=== PATIENT | female | born 1950 | race Caucasian/White ===

== ENCOUNTER 2017-04-28 13:06 | Inpatient (IN) | payer BC, OTHER ==
[~2017-04-28] VITALS: Ht 168.9 cm; Wt 90.3 kg
[2017-04-28 13:06] VITALS: BP 145/82; PULSE 80; RESP 18; TEMP 97; O2SAT 96
[~2017-04-28 13:06] MED LIST: CELE200C PO; DULO60CA41 PO; HYDR-3610 PO; LEVO88TA2 PO; METO25TA6 PO; PANT40TA4 PO; SARAFEM PO
--- NOTE | 2017-04-28 13:10 | NUR ---
Patient triaged and placed in waiting room. VSS and patient appears in no acute distress at this time. Accompanied by SPOUSE, awaiting available bed, and MD notified of need for MSE. SEEN IN TRIAGE ROOM BY ORLANDO GRESHAM.
[2017-04-28] MEDS ORDERED: SODIUM BICARBONATE 4% (NEUT) 5 ML VIAL INJ ONE (13:55)
[2017-04-28] MEDS ORDERED: KETOROLAC TROMETHAMINE 15 MG VIAL IVP ONE (13:55)
[2017-04-28] MEDS ORDERED: PIPERACILLIN/TAZOBACTAM 3.375 GM/VIAL (ZOSYN) IV ONE (13:55)
[2017-04-28] MEDS ORDERED: NS 1000 ML BAG IV ONE (13:55)
[2017-04-28] MEDS ORDERED: metroNIDAZOLE 500 mg/NS 100 mL IVPB IV ONE (13:55)
[2017-04-28] MEDS ORDERED: HYDROCORTISONE SOD SUCC 250 MG/2 ML IVP ONE (13:55)
[2017-04-28] MEDS ORDERED: LR 1,000 ML IV.SOLN IV ONE (13:55)
[2017-04-28] MEDS ORDERED: LIDOCAINE 2%, 20 ML MDV INJ ONE (13:55)
[2017-04-28] MEDS ORDERED: MIDAZOLAM HCL 5 MG/5 ML VIAL IVP ONE (13:55)
[2017-04-28] MEDS ORDERED: ePHEDrine sulfate 50 MG/ML VIAL IV ONE (13:55)
[2017-04-28] MEDS ORDERED: fentaNYL CITRATE 250 MCG/5 ML AMP IV ONE (13:55)
[2017-04-28] MEDS ORDERED: PROPOFOL 200MG/ 20ML VIAL (DIPRIVAN) IV ONE (13:55)
[2017-04-28] MEDS ORDERED: SEVOFLURANE 15 MIN GAS INH ONE (13:55)
[2017-04-28] MEDS ORDERED: NS IRRIG SOLN 1000 ML IR ONE (13:55)
[2017-04-28] MEDS ORDERED: DEXAMETHASONE SOD PHOSPHATE 4 MG/ML VIAL IVP ONE (13:55)
[2017-04-28 14:07] LABS: BASOPHILS # (AUTO) 0.1 K/uL (0.0-0.2); BASOPHILS % (AUTO) 0.4 % (0.0-2.0); LYMPHOCYTES # (AUTO) 1.3 K/uL (1.0-5.5); LYMPHOCYTES % (AUTO) 8.5 % (20.5-51.5); WHITE BLOOD COUNT (AUTO) 15.4 K/uL (4.8-10.8)
[2017-04-28 14:13] LABS: CALCIUM 10.3 mg/dL (8.4-11.0); CREATININE 1.14 mg/dL (0.55-1.30); EOSINOPHILS % (AUTO) 0.1 % (0.0-4.0); HEMATOCRIT 41.3 % (36-48); HEMOGLOBIN 13.5 g/dL (12.0-16.0); MEAN CORPUSCULAR HEMOGLOBIN 31 pg (27-31); MEAN CORPUSCULAR HGB CONC 33 % (32-36); MEAN CORPUSCULAR VOLUME 94 fL (79.0-98.0); MONOCYTES % (AUTO) 6.4 % (1.7-9.3); NEUTROPHILS % (AUTO) 84.6 % (40.0-70.0); PLATELET COUNT (AUTO) 309 K/uL (130-430); POTASSIUM 4.7 mmol/L (3.5-5.1); RED BLOOD CELL COUNT(AUTO) 4.38 MIL/uL (4.2-6.2); RED CELL DISTRIBUTION WIDTH 12.6 % (9.0-15.0)
[2017-04-28 14:18] LABS: ALBUMIN 4.6 g/dL (3.4-4.8); TOTAL BILIRUBIN 0.4 mg/dL (0.0-1.0)
--- NOTE | 2017-04-28 14:40 | NUR ---
BROUGHT BACK TO BED #8 AND REPORT GIVEN TO AUSTEN
--- NOTE | 2017-04-28 14:45 | NUR ---
Pt brought by , A&Ox4, pt c/o N/V and severe abdominal pain, ambulatory, skin pink and warm, cap refill <3, respirations even and unlabored.
--- NOTE | 2017-04-28 14:57 | NUR ---
Note undone in EDM - 04/28/17 at 1527 by BERNADINE Patient given written and verbal discharge instructions and verbalizes understanding. ER discussed with patient the results and treatment provided. Patient in stable condition. ID arm band removed. Rx of FLAVIA WIGGINS given. Patient educated on pain management and to follow up with PMD. Pain Scale 0/10. Opportunity for questions provided and answered.
[2017-04-28] MEDS ORDERED: HYDROmorphone 1 MG INJ. 1 MG/ML AMPUL IVP ONE (15:30)
--- NOTE | 2017-04-28 15:30 | NUR ---
Dr Pereira at bedside examining patient
--- NOTE | 2017-04-28 15:50 | NUR ---
Admiting orders taken from Dr. Gomez. Pt will be admited to med-surg.
--- NOTE | 2017-04-28 16:00 | NUR ---
Spoke with Dr. Phelps regarding consultation, states that he will see the patient on the floor.
--- NOTE | 2017-04-28 16:04 | NUR ---
Patient states that she does not know her medications at this time and have her bring in the bottles of medication when he returns.
[2017-04-28 16:05] LABS: BILIRUBIN,URINE NEGATIVE (NEGATIVE); CLARITY/URINE SL HAZY (CLEAR); COLOR,URINE YELLOW (YELLOW); GLUCOSE,URINE NEGATIVE (NEGATIVE); KETONES,URINE TRACE (NEGATIVE); LEUKOCYTE ESTERASE ,URINE NEGATIVE (NEGATIVE); NITRITE, URINE NEGATIVE (NEGATIVE); PROTEIN URINE TRACE (NEGATIVE); UROBILINOGEN,URINE 0.2 (0.2-1.0)
[2017-04-28 16:06] LABS: BLOOD, URINE TRACE (NEGATIVE)
[2017-04-28 16:19] LABS: BACTERIA,URINE FEW /HPF (None Seen); WBC,URINE 0-3 /HPF (0-3)
[2017-04-28 16:20] LABS: FINE GRANULAR CASTS,URINE 0-10 /LPF (None Seen); HYALINE CASTS, URINE 0-10 /LPF (None Seen)
[2017-04-28 16:21] LABS: CALCIUM OXALATE CRYSTALS,UR 0-10 /HPF (None Seen)
[2017-04-28 16:22] LABS: MUCUS,URINE 2+ /LPF (None Seen)
[2017-04-28] MEDS ORDERED: ARIP2TAB9 PO (16:39)
[2017-04-28] MEDS ORDERED: FLUO10CA65 PO (16:39)
--- NOTE | 2017-04-28 16:40 | NUR ---
Medication reconciliation completed with information provided by patient . Any prior medication reconciliation on file was reviewed and corrected.
--- NOTE | 2017-04-28 16:45 | NUR ---
ADMISSION NOTE Received patient from ER via gurney. Patient admitted with diagnosis of small bowel obstruction. Patient is awake, alert, oriented X4. Patient oriented to hospital room, call light, toileting, pain management and safety-teach back done. Personal belongings checked and Belongings List documented. Call light within reach.
[2017-04-28 16:50] VITALS: PULSE 115
[2017-04-28 16:59] VITALS: BP 141/67; PULSE 83; RESP 16; TEMP 98.7; O2SAT 95
--- NOTE | 2017-04-28 17:00 | NUR ---
Patient will be admitted to care of Dr Stuart . Admitted to Tele unit. Will go to room 133A . Belongings list completed. Summary report printed. Report will be given at bedside.
[2017-04-28 17:16] VITALS: BP 132/81; PULSE 78; RESP 19; TEMP 97; O2SAT 99
[2017-04-28] MEDS: MORPHINE 4 MG/ML INJ. SYRINGE IVP PRN ×2 (18:22→22:33)
[2017-04-28] MEDS: ONDANSETRON HCL 4 MG/2 ML VIAL IVP PRN ×2 (18:22→22:38)
[2017-04-28] MEDS: D5NS 1,000 ML IV SCH (18:35)
--- NOTE | 2017-04-28 19:26 | NUR ---
ROUNDS PT SITTING UP IN BED IN NO ACUTE DISTRESS. DENIES ANY PAIN AT THIS TIME. IVF INFUSING WELL, NO S/S OF INFILTRATION NOTED. CALL LIGHT WITHIN REACH. PT ENCOURAGED TO USE CALL LIGHT FOR ASSISTANCE. VERBALIZED UNDERSTANDING. WILL ENDORSE TO NOC NURSE.
--- NOTE | 2017-04-28 19:48 | NUR ---
CLOSING NOTE PT SITTING UP IN BED IN NO ACUTE DISTRESS. STATES PAIN IS STARTING TO COME BACK, WILL ENDORSE TO NOC NURSE. DISCUSSED WITH PT PLAN FOR ESOPHAGRAM TOMORROW, PT VERBALIZED UNDERSTANDING. CALL LIGHT WITHIN REACH. PT ENCOURAGED TO USE CALL LIGHT FOR ASSISTANCE.
--- NOTE | 2017-04-28 19:50 | NUR ---
Opening note Report was endorsed by day nurse at bedside. Patient is awake and laying in bed no signs of distress breathing is equal and non labored. educated specialty finishing utility person light and call light is with patient. Will continue to monitor.
[2017-04-28] MEDS: METOPROLOL TARTRATE 25 MG TABLET PO SCH (20:48)
[2017-04-28 20:54] VITALS: BP 180/102; PULSE 67; RESP 14; TEMP 97.6; O2SAT 95
[2017-04-28] MEDS: MORPHINE 2 MG/ML INJ. SYRINGE IVP PRN (21:00)
--- NOTE | 2017-04-28 21:03 | NUR ---
PAIN MEDICATION Patient is complains of pain 6/10 medicated as order please see EMAR. Patient educated bone drier light for assistance.call oight is on patient left side. Patient has safety precautions in place. Patient shows no signs of distress breathing is equal and non labored. Will continue to monitor.
[2017-04-28 22:30] VITALS: BP 160/105
--- NOTE | 2017-04-28 22:39 | NUR ---
Pain medication/ Nausea medication Patient is complains of pain 9/10 in her abdomen. Patient is also complains of nausea medicated as order please se EMAR. Patient is awake and laying in bed no signs of distress breathing is equal and non labored. educated front desk lead light for assistance and is with patient Will continue to monitor.
--- NOTE | 2017-04-28 23:50 | NUR ---
RN rounding note Patient is awake and laying in bed. Patient shows no signs of distress breathing is equal and non labored. Educated business analyst sales operations light for assistance call light is with her. Will continue to monitor.
[2017-04-29] VITALS (7 sets, daily range): BP systolic 125–160; BP diastolic 67–100; PULSE 87–121; RESP 16–20; TEMP 97–98.5; O2SAT 90–98
--- NOTE | 2017-04-29 01:00 | NUR ---
RN rounding Patient is laying in bed with no signs of distress visible chest rise and fall, breathing is equal and non labored. Patient has call light with her, safety precautions in place. Will continue to monitor.
[2017-04-29] MEDS: MORPHINE 4 MG/ML INJ. SYRINGE IVP PRN ×2 (02:56→08:53)
--- NOTE | 2017-04-29 02:58 | NUR ---
IV site/pain medication Patient IV site no longer patent removed Left FA 20G iv catheter intact applied gauze and tape to site. New IV started on right wrist 22 G. Patient is complaing of pain 8/10 medicated as order. Patient educated transformation lead light for assistance call light is with patient. Patient shows no signs of distress breathing is equal and non labored.Will continue to monitor.
[2017-04-29] MEDS: D5NS 1,000 ML IV SCH ×2 (05:25→20:47)
[2017-04-29] MEDS: ONDANSETRON HCL 4 MG/2 ML VIAL IVP PRN ×3 (05:25→20:46)
[2017-04-29] MEDS: MORPHINE 2 MG/ML INJ. SYRINGE IVP PRN ×2 (05:26→11:47)
--- NOTE | 2017-04-29 05:33 | NUR ---
Medication Patient complains of pain 6/10 patient also complains of nausea medicated as order please see EMAR. Patient IV fluid bag changed. Patient educated section plotter operator light for assistance. Patient has call light and nausea bag on patient right side. Patient has safety precautions in place. Will continue to monitor.
--- NOTE | 2017-04-29 07:52 | NUR ---
initial notes rec patient asleep but arousable to stimuli. denies abdominal pain at this time. stated comforatbale right now. resp easy and unlabored. no osb noted. bed in low position and side rails up and locked. call light withi n reached and knows when to call for assistance. will continue to monitor patient.
[2017-04-29] MEDS: ARIPiprazole 2 MG TAB PO SCH (08:51)
[2017-04-29] MEDS: LEVOTHYROXINE SODIUM 0.088 MG TABLET PO SCH (08:52)
[2017-04-29] MEDS: METOPROLOL TARTRATE 25 MG TABLET PO SCH ×2 (08:52→22:53)
[2017-04-29] MEDS: DULoxetine HCL 30 MG CAPSULE.DR (CYMBALTA) PO SCH (08:52)
[2017-04-29] MEDS: FLUoxetine HCL 10 MG CAPSULE (PROzac) PO SCH (08:52)
[2017-04-29] MEDS ORDERED: GASTROGRAFIN 120 ML ONE (09:36)
--- NOTE | 2017-04-29 10:00 | NUR ---
rounds pt was taken for esophagus xray via wheelchair. awaiting to call back.
--- NOTE | 2017-04-29 10:18 | NUR ---
DC PLANNING Received msg from Nazia Bettencourt @ [facility], ph [phone] fax [phone], pt out of network. Called & spoke w Nazia Bettencourt states if Md anticipates dc today or tomorrow ok for pt to stay here, if going to need more time then want to transfer pt in-network today. Discussed w Dr Gomez in [facility] states will examine pt & let me know. Faxed pt info to Nazia Bettencourt per her request. Addendum: 04/29/17 at 1626 by Brennon Chandra RN >> Per dr. Phelps, requested pt to have bowel resection possible tomorrow if pt. is not transferred to [facility]. CM called [facility], informed Nazia Bettencourt as per md's request. Nazia Bettencourt stated she will work on getting pt. transfer today for the surgery at the [facility]. >> Informed dr. Gomez and asking for transfer order if pt. is stable. The md responded " Let me see". CHIQUIS Urias made aware and to f/u with the order. >> Informed pt. that she might be transferred tonight or when bed available (arranged by Nazia Bettencorut). She aware that her insurance the surgery done at the [facility]. Pt. Nazia Eckert will call nursing station if bed tonight. the pt. agreed with JIMENA gibbs
[2017-04-29 11:43] LABS: BASOPHILS % (AUTO) 0.3 % (0.0-2.0); EOSINOPHILS % (AUTO) 0.2 % (0.0-4.0); LYMPHOCYTES # (AUTO) 1.2 K/uL (1.0-5.5); LYMPHOCYTES % (AUTO) 8.7 % (20.5-51.5); MEAN CORPUSCULAR HEMOGLOBIN 31 pg (27-31); MEAN CORPUSCULAR HGB CONC 33 % (32-36); MEAN CORPUSCULAR VOLUME 95 fL (79.0-98.0); MONOCYTES # (AUTO) 1.7 K/uL (0.0-1.0); MONOCYTES % (AUTO) 11.8 % (1.7-9.3); NEUTROPHILS # (AUTO) 11.2 K/uL (1.8-7.7); PLATELET COUNT (AUTO) 378 K/uL (130-430); RED BLOOD CELL COUNT(AUTO) 4.85 MIL/uL (4.2-6.2); RED CELL DISTRIBUTION WIDTH 13.1 % (9.0-15.0); WHITE BLOOD COUNT (AUTO) 14.1 K/uL (4.8-10.8)
[2017-04-29 11:49] LABS: CALCIUM 10.3 mg/dL (8.4-11.0); CREATININE 1.09 mg/dL (0.55-1.30); POTASSIUM 4.7 mmol/L (3.5-5.1)
[2017-04-29 11:55] LABS: ALBUMIN 4.4 g/dL (3.4-4.8); TOTAL BILIRUBIN 0.5 mg/dL (0.0-1.0)
--- NOTE | 2017-04-29 12:00 | NUR ---
rounds patient just came back for esophagus xray and was in a lot pain and was medicated. stated that pain med was not enough and dr sinclair was paged . awaiting to call back.
[2017-04-29] MEDS ORDERED: HYDROmorphone 1 MG INJ. 1 MG/ML AMPUL IVP PRN (12:45)
[2017-04-29] MEDS: HYDROmorphone 2 MG/ML VIAL IVP PRN ×3 (13:11→20:47)
--- NOTE | 2017-04-29 13:34 | NUR ---
PAGED PAGED GLORIA BOONE [phone] SPOKE WITH DANA.
--- NOTE | 2017-04-29 14:00 | NUR ---
rounds sleeping soundly when rounds made. no acute distress noted. call light within reached.
--- NOTE | 2017-04-29 17:00 | NUR ---
rounds asleep when rounds made. no sob noted. call light within reached and bed in low position.
--- NOTE | 2017-04-29 19:00 | NUR ---
closing notes endorsed to incoming nurse, pt might be transferred anytime tonight to [facility]. awaiting for bed availability. pt is asleep at this time. stable needs attended. pt aware of possible transfer tonight.
--- NOTE | 2017-04-29 20:29 | NUR ---
OPENING NOTES PATIENT IS A/OX4. PATIENT IS IN BED RESTING. VITAL SIGNS ARE STABLE. BREATHING IS NON LABORED. NO SIGNS OF DISTRESS. IV IS PATENT. CALL LIGHT IS WITHIN REACH. BED ALARM IS ON. PATIENT INSTRUCTED TO CALL FOR ASSISTANCE. PATIENT VERBALIZED UNDERSTANDING. WILL CONTINUE TO MONITOR.
--- NOTE | 2017-04-29 21:02 | NUR ---
PAIN/ NAUSEA AND VOMITING PATIENT COMPLAINED OF PAIN AND NAUSEA & VOMITING. GAVE PRN PAIN MEDICATION AND ANTI NAUSEA AND VOMITING MEDICATION ORDERED. WILL CONTINUE TO MONITOR. BED ALARM IS ON. CALL LIGHT IS WITHIN REACH.
--- NOTE | 2017-04-29 22:07 | NUR ---
RADIOLOGY IS AT BEDSIDE.
[2017-04-30] VITALS (15 sets, daily range): BP systolic 91–130; BP diastolic 56–89; PULSE 103–130; RESP 16–26; TEMP 96.9–98.6; O2SAT 90–100
--- NOTE | 2017-04-30 00:27 | NUR ---
ROUNDS PATIENT IS IN BED SLEEPING COMFORTABLY. NO SIGNS OF DISTRESS. BREATHING IS NON LABORED. CALL LIGHT IS WITHIN REACH. BED ALARM IS ON. WILL CONTINUE TO MONITOR.
[2017-04-30] MEDS: HYDROmorphone 2 MG/ML VIAL IVP PRN ×5 (01:59→18:57)
--- NOTE | 2017-04-30 02:00 | NUR ---
PAIN PATIENT COMPLAINED OF PAIN. GAVE PRN PAIN MEDICATION. PATIENT DENIES NAUSEA. CALL LIGHT IS WITHIN REACH. BED ALARM IS ON. WILL CONTINUE TO MONITOR.
--- NOTE | 2017-04-30 04:27 | NUR ---
ROUNDS PATIENT IS RESTING COMFORTABLY. NO SIGNS OF DISTRESS. BREATHING IS NON LABORED. CALL LIGHT IS WITHIN REACH. BED ALARM IS ON. SAFETY MEASURES ARE IN PLACE. WILL CONTINUE TO MONITOR.
[2017-04-30] MEDS: ONDANSETRON HCL 4 MG/2 ML VIAL IVP PRN ×2 (06:03→12:02)
--- NOTE | 2017-04-30 06:11 | NUR ---
PAIN AND NAUSEA PATIENT COMPLAINED OF NAUSEA/VOMITING AND PAIN. PRN PAIN AND NAUSEA/VOMITING WAS GIVEN. BED ALARM IS ON. CALL LIGHT IS WITHIN REACH. WILL CONTINUE TO MONITOR.
--- NOTE | 2017-04-30 06:53 | NUR ---
CLOSING NOTES PATIENT IS A/OX4 AND IN BED WATCHING TV. NO SIGNS OF DISTRESS. BREATHING IS NON LABORED. IV IS PATENT. PATIENT DENIES NAUSEA OR PAIN. BED ALARM IS ON. CALL LIGHT IS WITHIN REACH. WILL ENDORSE ALL CARE TO THE MORNING NURSE.
--- NOTE | 2017-04-30 07:41 | NUR ---
Patient is at rest, arousable, A/Ox4. IV on right wrist, #22, with D5NS running at 70ml/hr. IV site intact and patent. NPO at this time. Call light in place, bed locked at the lowest position, bed alarm is on, will continue to monitor.
--- NOTE | 2017-04-30 08:24 | NUR ---
Case mgt: Rec'd vm from BRAIN Eckert at [facility] asking if pt is stable for transfer to contracted hospital today. I s/w Dr. Gomez. He is rounding and wants to assess pt as radiology results pending-pt was having increased abd pain yesterday-He will assess pt and call me back. DANNY RN
[2017-04-30] MEDS: DULoxetine HCL 30 MG CAPSULE.DR (CYMBALTA) PO SCH (09:00)
[2017-04-30] MEDS: LEVOTHYROXINE SODIUM 0.088 MG TABLET PO SCH (09:00)
[2017-04-30] MEDS: ARIPiprazole 2 MG TAB PO SCH (09:00)
[2017-04-30] MEDS: FLUoxetine HCL 10 MG CAPSULE (PROzac) PO SCH (09:00)
[2017-04-30] MEDS: METOPROLOL TARTRATE 25 MG TABLET PO SCH ×2 (09:00→21:00)
--- NOTE | 2017-04-30 09:50 | NUR ---
Patient is seen by Dr. Phelps; surgery is explained, and patient consented to the surgery.
--- NOTE | 2017-04-30 12:15 | NUR ---
Patient is c/o 8/10 abdominal pain. Dilaudid 2mg is given ivp.
[2017-04-30] MEDS ORDERED: FLU VACC QS 2017-18(36MOS+)/PF 0.5 ML/SYR SYRINGE I.M. PRN (13:45)
--- NOTE | 2017-04-30 13:45 | NUR ---
Patient to OR. No signs of apparent distress noted during transfer.
[2017-04-30] MEDS ORDERED: HYDROCORTISONE SOD SUCC 250 MG/2 ML ONE (14:40)
[2017-04-30 15:20] LABS: CREATININE 1.75 mg/dL (0.55-1.30); POTASSIUM 4.4 mmol/L (3.5-5.1); TOTAL BILIRUBIN 0.4 mg/dL (0.0-1.0)
[2017-04-30] MEDS ORDERED: POLYMYXIN 500,000/BACIT.10,000 UNITS in NS IRR 1 L IR ONE (15:43)
--- NOTE | 2017-04-30 16:50 | NUR ---
RT Note: 1650 Pt received from OR. Placed on vent on charted settings. Initial sputum done. 1700 increased FiO2 to 100% as per SpO2. 1730 Changed vent settings to AC 16, Vt550 and moved ET tube in 2cm as per Dr. Peraza. Will draw ABG in 10 mins. RN made aware. Addendum: 04/30/17 at 1743 by Kimmy Mathew RT Amended: Links added.
--- NOTE | 2017-04-30 17:17 | NUR ---
CONSULT CALLED Reason for Consultation: POST-OP VENT Was consult called? Y Person who was notified: HAIR Consulting Physician: MARYANNE ANGUIANO Micro Computer Data Processor Specialty: PULMONARY DISEASE Micro Computer Data Processor
--- NOTE | 2017-04-30 17:35 | NUR ---
TO ICU 8. RECEIVED REPORT FROM RECOVERY NURSE, PT INTUBATED, OPENS HER EYES WHEN ASKED TO, ORIENTATION TO SURROUNDINGS PROVIDED, MIDLINE DRESSING CLEAN AND DRY, BAND AIDS TO EACH SIDE OF ABDOMEN, CONI DRAIN WITH SEROSANGENOUS OUTPUT, NAVARRO CATHETER DRAINING YELLOW URINE, WILL CONTINUE TO MONITOR.
[2017-04-30] MEDS ORDERED: NS 500 ML IV ONE ×2 (17:45→22:15)
[2017-04-30] MEDS ORDERED: IPRATROPIUM BROM 0.5 MG/2.5 ML VIAL.NEB (ATROVENT) INH PRN (17:45)
[2017-04-30] MEDS ORDERED: ALBUTEROL SULFATE 0.083% 2.5 MG/3 ML VIAL.NEB INH PRN (17:45)
--- NOTE | 2017-04-30 17:53 | NUR ---
RT Note: 1753 Changed settings per ABG result and per Dr. Peraza's order. RN Namrata made aware. Pt tolerating change well. Will draw ABG in 1 hour. Addendum: 04/30/17 at 1806 by Kimmy Mathew RT Amended: Links added.
[2017-04-30] MEDS: PIPERACILLIN/TAZO 2.25G/DEX-IS 50 ML IV SCH (18:00)
[2017-04-30] MEDS: D5NS 1,000 ML IV SCH (18:53)
--- NOTE | 2017-04-30 18:57 | NUR ---
PAIN. PT SEEN MOVED HER ARMS, AWAKE WHEN APPROACHED, MAKING HAND GESTURES, PEN AND PAPER USED IN COMMUNICATING, COMPLAINED OF INCISIONAL PAIN, 9/10 SCALE, MEDICATED WITH DILAUDID 2 MG IVP ORDERED.
[2017-04-30] MEDS: ALBUTEROL SULFATE 0.083% 2.5 MG/3 ML VIAL.NEB INH SCH (19:34)
[2017-04-30] MEDS: IPRATROPIUM BROM 0.5 MG/2.5 ML VIAL.NEB (ATROVENT) INH SCH (19:34)
--- NOTE | 2017-04-30 20:05 | NUR ---
AGB 190 ABG results called to Dr Peraza. Orders received: 1. Change AC 20 to AC 24. 2. Give Amp Bicarb 3. ABG in AM
[2017-04-30] MEDS ORDERED: SODIUM BICARBONATE 8.4% JECT 50 MEQ/50 ML SYRINGE IVP ONE (20:20)
--- NOTE | 2017-04-30 21:55 | NUR ---
DR ANKITA Peraza notified regarding increased heart rate, low urine output (50ml X 3HR), no sedation orders. Orders received: 1. Normal Saline 500ML bolus 2. Stat CBC, CMP 3. Ativan 1mg IV Q1HPRN, Change frequency of PRN Dilaudid for 1mg & 2mg to Q 2HPRN
[2017-04-30] MEDS ORDERED: HYDROmorphone 1 MG INJ. 1 MG/ML AMPUL IVP PRN (22:00)
[2017-04-30] MEDS: LORazepam 2 MG/ML VIAL IVP PRN (22:18)
[2017-04-30 22:28] LABS: MEAN CORPUSCULAR VOLUME 97 fL (79.0-98.0); RED CELL DISTRIBUTION WIDTH 13.2 % (9.0-15.0)
[2017-04-30 22:37] LABS: CALCIUM 7.4 mg/dL (8.4-11.0); CREATININE 2.5 mg/dL (0.55-1.30); POTASSIUM 4.5 mmol/L (3.5-5.1)
[2017-04-30 22:43] LABS: ALBUMIN 2.5 g/dL (3.4-4.8); TOTAL BILIRUBIN 0.6 mg/dL (0.0-1.0)
[2017-04-30 23:50] LABS: HEMATOCRIT 37.4 % (36-48); HEMOGLOBIN 12.3 g/dL (12.0-16.0); MEAN CORPUSCULAR HEMOGLOBIN 32 pg (27-31); MEAN CORPUSCULAR HGB CONC 33 % (32-36); PLATELET COUNT (AUTO) 182 K/uL (130-430); RED BLOOD CELL COUNT(AUTO) 3.87 MIL/uL (4.2-6.2)
[2017-04-30 23:52] LABS: WHITE BLOOD COUNT (AUTO) 1.2 K/uL (4.8-10.8)
[2017-05-01] VITALS (37 sets, daily range): BP systolic 70–124; BP diastolic 36–82; PULSE 127–176; RESP 24–33; TEMP 98.2–99; O2SAT 94–100
--- NOTE | 2017-05-01 00:05 | NUR ---
DR ANKITA Peraza notified regarding CBC & CMP results. WBC 1.2, NA 150, Calcium 7.4, BUN 44, Creat 2.50. Orders received. 1. Change IV solution to 1/2NS @ 120ml/hr. 2. Give 250ml bolus NS.
[2017-05-01] MEDS: 0.45% NACL 1,000 ML IV SCH ×4 (00:17→21:20)
[2017-05-01] MEDS ORDERED: NS 250 ML IV ONE ×2 (00:25→08:15)
[2017-05-01 00:35] LABS: BAND % (MANUAL) 14 % (0-6); BASOPHILS % (MANUAL) 0 % (0-2); EOSINOPHILS % (MANUAL) 0 % (0-7); LYMPHOCYTES % (MANUAL) 40 % (20-46); METAMYELOCYTES % 3 % (0-0); MONOCYTES % (MANUAL) 10 % (0-11); MYELOCYTES % 2 % (0-0)
[2017-05-01] MEDS: HYDROmorphone 2 MG/ML VIAL IVP PRN ×5 (00:52→22:29)
[2017-05-01] MEDS: PIPERACILLIN/TAZO 2.25G/DEX-IS 50 ML IV SCH ×4 (01:06→18:12)
[2017-05-01] MEDS: ALBUTEROL SULFATE 0.083% 2.5 MG/3 ML VIAL.NEB INH SCH ×3 (01:18→13:23)
[2017-05-01] MEDS: IPRATROPIUM BROM 0.5 MG/2.5 ML VIAL.NEB (ATROVENT) INH SCH ×3 (01:19→13:23)
[2017-05-01] MEDS: LORazepam 2 MG/ML VIAL IVP PRN ×5 (04:12→18:14)
--- NOTE | 2017-05-01 06:00 | NUR ---
ASSESSMENT Pt resting quietly, Pt was medicated for abdominal pain. Lobo Moore right lower abdomen patent and compressed. Drainage red in color.
[2017-05-01 06:40] LABS: BASOPHILS % (AUTO) 0.1 % (0.0-2.0); MEAN CORPUSCULAR HEMOGLOBIN 31 pg (27-31); MEAN CORPUSCULAR HGB CONC 32 % (32-36)
[2017-05-01 06:55] LABS: EOSINOPHILS % (AUTO) 0.6 % (0.0-4.0); HEMATOCRIT 34.6 % (36-48); HEMOGLOBIN 11.1 g/dL (12.0-16.0); LYMPHOCYTES # (AUTO) 0.3 K/uL (1.0-5.5); LYMPHOCYTES % (AUTO) 12.2 % (20.5-51.5); MEAN CORPUSCULAR VOLUME 98 fL (79.0-98.0); MONOCYTES # (AUTO) 0.2 K/uL (0.0-1.0); MONOCYTES % (AUTO) 10.8 % (1.7-9.3); NEUTROPHILS # (AUTO) 1.6 K/uL (1.8-7.7); NEUTROPHILS % (AUTO) 76.3 % (40.0-70.0); PLATELET COUNT (AUTO) 150 K/uL (130-430); RED BLOOD CELL COUNT(AUTO) 3.55 MIL/uL (4.2-6.2); RED CELL DISTRIBUTION WIDTH 13.3 % (9.0-15.0); WHITE BLOOD COUNT (AUTO) 2.1 K/uL (4.8-10.8)
[2017-05-01 07:03] LABS: CREATININE 2.82 mg/dL (0.55-1.30)
[2017-05-01 07:25] LABS: ALBUMIN 2.3 g/dL (3.4-4.8); TOTAL BILIRUBIN 0.4 mg/dL (0.0-1.0)
[2017-05-01 07:40] LABS: CALCIUM 6.9 mg/dL (8.4-11.0)
--- NOTE | 2017-05-01 08:00 | NUR ---
CALL TO SPOKE TO DR LUCIANO REGARDING CRITICAL LAB RESULT: CALCIUM 6.9. MADE AWARE OF PT LOW BLOOD PRESSURE AND INCREASED HR. ORDERS FOR 250 NS BOLUS RECEIVED. Addendum: 05/01/17 at 0814 by Louisa Martins RN ALSO SAID TO HOLD ALL PO MEDS THIS MORNING D/T PT NPO
--- NOTE | 2017-05-01 08:34 | NUR ---
MD ROUNDS DR LUCIANO HERE TO EVALUATE PT. MADE MD AWARE OF CRITICAL ABG RESULTS: PH 7.254, BE -7.7. ORDERS RECEIVED. TO ORDER EKG D/T PT INCREASED HR.
[2017-05-01] MEDS ORDERED: SODIUM BICARBONATE 8.4% JECT 50 MEQ/50 ML SYRINGE IVP ONE (08:45)
[2017-05-01] MEDS ORDERED: CALCIUM GLUCONATE 1 GM in NS 100 ML IV ONE (08:45)
[2017-05-01] MEDS: ARIPiprazole 2 MG TAB PO SCH (08:52)
[2017-05-01] MEDS: METOPROLOL TARTRATE 25 MG TABLET PO SCH ×2 (08:52→21:00)
[2017-05-01] MEDS: DULoxetine HCL 30 MG CAPSULE.DR (CYMBALTA) PO SCH (08:52)
[2017-05-01] MEDS: LEVOTHYROXINE SODIUM 0.088 MG TABLET PO SCH (08:53)
[2017-05-01] MEDS: FLUoxetine HCL 10 MG CAPSULE (PROzac) PO SCH (08:53)
--- NOTE | 2017-05-01 08:54 | NUR ---
Nutrition Update Sreedhar Scale 15 noted. Pt admitted for Small Bowel Obstruction Diet: NPO BMI: 31.6 kg/m2 RD to follow per nutrition care standards.
--- NOTE | 2017-05-01 09:00 | NUR ---
EKG RT HERE TO DO EKG
--- NOTE | 2017-05-01 09:45 | NUR ---
RT RT HERE TO INCREASE VENT RATE TO 28. WILL CONTINUE TO MONITOR
[2017-05-01] MEDS: ALBUMIN HUMAN 25% 100 ML IV SCH ×3 (09:47→21:22)
[2017-05-01] MEDS ORDERED: DILTIAZEM HCL 25 MG/5 ML VIAL ONE (09:51)
--- NOTE | 2017-05-01 10:02 | NUR ---
@0945 INCREASED to f28 from f24 per MD Peraza
[2017-05-01] MEDS: metroNIDAZOLE 500 mg/NS 100 ML IV SCH ×3 (10:51→19:15)
--- NOTE | 2017-05-01 10:58 | NUR ---
CALL TO MD SPOKE TO DR LUCIANO TO REPORT ABG VALUES W/ CRITICAL BE: -5.5. MD ORDERS FOR RT TO DECREASE FIO2 TO 60% AND TITRATE TO KEEP O2 SAT GREATER THAN 92%
--- NOTE | 2017-05-01 11:05 | NUR ---
@1105 TITRATED FIO2 TO 60% PER MD LUCIANO
--- NOTE | 2017-05-01 11:05 | NUR ---
RT RT HERE TO CHANGE FIO2 TO 60% PER ORDERS BY DR LUCIANO. WILL MONITOR FOR PT RESPONSE TO CHANGES
--- NOTE | 2017-05-01 13:00 | NUR ---
MD ROUNDS DR PINO HERE TO EVALUATE PT. MADE MD AWARE OF LOW URINE OUTPUT. NO NEW ORDERS RECEIVED AT THIS TIME.
[2017-05-01] MEDS: methylPREDNISolone SOD SUCC/PF 62.5 MG/ML VIAL IVP SCH ×2 (14:47→23:41)
--- NOTE | 2017-05-01 16:20 | NUR ---
CHG CHG BATH GIVEN. PT TOLERATED WELL, VSS. NO SIGNS DISTRESS NOTED.
--- NOTE | 2017-05-01 16:40 | NUR ---
MD ROUNDS DR SMITH HERE TO EVALUATE PT. MADE MD AWARE OF LOW URINE OUTPUT. ORDERS RECEIVED FOR 1L NS BOLUS.
[2017-05-01] MEDS ORDERED: NACL 0.9% 1,000 ML IV ONE ×2 (17:00→20:00)
--- NOTE | 2017-05-01 17:05 | NUR ---
Called Dr. Haney with a consult, spoke with Katina from the exchange. Dr. Gloria litigation paralegal at this time
[2017-05-01] MEDS ORDERED: CEFEPIME 1 GM in D5W 50 ML IV SCH (17:15)
--- NOTE | 2017-05-01 17:20 | NUR ---
Called Dr. Hirsch with a consult,spoke with Chrissy from the exchange
[2017-05-01 17:22] LABS: HEMATOCRIT 25.9 % (36-48); HEMOGLOBIN 8.5 g/dL (12.0-16.0); MEAN CORPUSCULAR HEMOGLOBIN 31 pg (27-31); MEAN CORPUSCULAR HGB CONC 33 % (32-36); MEAN CORPUSCULAR VOLUME 95 fL (79.0-98.0); PLATELET COUNT (AUTO) 104 K/uL (130-430); RED BLOOD CELL COUNT(AUTO) 2.72 MIL/uL (4.2-6.2); RED CELL DISTRIBUTION WIDTH 13.2 % (9.0-15.0); WHITE BLOOD COUNT (AUTO) 5.7 K/uL (4.8-10.8)
[2017-05-01 17:39] LABS: CREATININE 2.49 mg/dL (0.55-1.30); POTASSIUM 3.6 mmol/L (3.5-5.1)
[2017-05-01 18:01] LABS: CALCIUM 5.4 mg/dL (8.4-11.0)
[2017-05-01] MEDS: DILTIAZEM HCL 25 MG/5 ML VIAL IVP PRN (18:10)
--- NOTE | 2017-05-01 18:32 | NUR ---
CALCIUM LEVEL MD NOTIFIED RE CALCIUM LEVEL 5.4, ORDERS RECEIVED.
[2017-05-01 18:35] LABS: ATYPICAL LYMPHOCYTES % 0 % (0-0); BAND % (MANUAL) 48 % (0-6); BASOPHILS % (MANUAL) 0 % (0-2); EOSINOPHILS % (MANUAL) 0 % (0-7); LYMPHOCYTES % (MANUAL) 5 % (20-46); METAMYELOCYTES % 18 % (0-0); MONOCYTES % (MANUAL) 3 % (0-11); MYELOCYTES % 10 % (0-0)
--- NOTE | 2017-05-01 19:20 | NUR ---
ENDORSEMENT BEDSIDE REPORT GIVEN TO WILLIAMS RN USING SBAR APPROACH
[2017-05-01] MEDS ORDERED: DILTIAZEM HCL 125 MG/25 ML VIAL IV ONE ×2 (19:58→20:00)
[2017-05-01] MEDS ORDERED: CALCIUM GLUCONATE 2 GM in NS 100 ML IV ONE (20:00)
[2017-05-01] MEDS ORDERED: DILTIAZEM HCL 125 MG in D5W 100 ML IV SCH (20:00)
--- NOTE | 2017-05-01 20:00 | NUR ---
DR LUIS Arizmendi notified regarding elevated heart rate, orders received: 1. 1Liter NS bolus 2. Increase IVF rate to 250ml/hr 3. Consult Dr Sullivan 4. Start Cardizem drip 5. Stat EKG
--- NOTE | 2017-05-01 20:00 | NUR ---
DR SHERI Hernandez notified as a cardiac consult regarding elevated heart rate. Dr Hernandez ok with starting Cardizem drip, he stated to call if SBP in low 90's to change medications.
--- NOTE | 2017-05-01 20:00 | NUR ---
ASSESSMENT Pt quiet, sedated. Orally intubated tolerating current vent settings. IVF infusing left wrist 18ga, no redness or swelling noted @ site. 2nd IV site right hand 22ga Saline lock. No redness or swelling noted @ site. Butcher in use draining concentrated enid color urine. Skin intact. Mid line abdominal incision with dressing dry and intact, RLQ abdomen with Lobo Moore drain, small amount of red drainage noted. SCD in use. Heart rate in the 170's, Dr Arizmendi being notified.
--- NOTE | 2017-05-01 20:33 | NUR ---
CONSULT STAT REQ BY DR.HAKAK SIMS DIETETIC AIDE S.W:EXCHANGE [phone]
[2017-05-01] MEDS ORDERED: BUMEX 1 MG/4 ML VIAL IVP ONE (21:00)
[2017-05-01] MEDS ORDERED: CALCIUM GLUCONATE 1 GM/10 ML VIAL IV SCH (22:00)
[2017-05-01 23:19] LABS: URINE SODIUM, RANDOM 12 mmol/L (40-220)
--- NOTE | 2017-05-01 23:50 | NUR ---
DR LUIS Arizmendi called to check status of Pt, orders received. 1. Give Digoxin 0.50mg IV now 2. Give 2nd dose of 0.25mg IV @ 0400 05/02/17 3. Run each unit of PRBC over 2 hours. 4. After 2nd unit of PRBC give Calcium Gluconate 1 Gm/ 100ml over 30 minutes.
[2017-05-02] VITALS (35 sets, daily range): BP systolic 96–141; BP diastolic 51–80; PULSE 84–165; RESP 27–32; TEMP 97.6–98.4; O2SAT 90–97
[2017-05-02] MEDS ORDERED: DIGOXIN 0.5 MG/2 ML AMP IVP ONE ×2 (00:10→04:00)
[2017-05-02] MEDS: metroNIDAZOLE 500 mg/NS 100 ML IV SCH ×4 (00:56→18:04)
--- NOTE | 2017-05-02 01:05 | NUR ---
BLOOD TRANSFUSION First unit of PRBC started v/s taken, no transfusion reaction noted.
[2017-05-02] MEDS: PIPERACILLIN/TAZO 2.25G/DEX-IS 50 ML IV SCH ×5 (01:34→23:39)
[2017-05-02] MEDS: HYDROmorphone 2 MG/ML VIAL IVP PRN ×3 (01:36→14:41)
--- NOTE | 2017-05-02 02:30 | NUR ---
BLOOD TRANSFUSION First unit complete, no reaction noted.
--- NOTE | 2017-05-02 03:04 | NUR ---
BLOOD TRANSFUSION 2nd Unit started, v/s taken, no reaction noted.
--- NOTE | 2017-05-02 04:50 | NUR ---
BLOOD TRANSFUSION 2nd unit complete, no reaction noted. Pt tolerated both units.
[2017-05-02] MEDS ORDERED: CALCIUM GLUCONATE 1 GM in NS 100 ML IV ONE (05:00)
[2017-05-02] MEDS: 0.45% NACL 1,000 ML IV SCH (05:03)
[2017-05-02] MEDS ORDERED: CALCIUM GLUCONATE 1 GM/10 ML VIAL ONE (05:17)
[2017-05-02] MEDS: methylPREDNISolone SOD SUCC/PF 62.5 MG/ML VIAL IVP SCH (05:28)
[2017-05-02 06:54] LABS: ANION GAP 16 (5-15); CALCIUM 7.1 mg/dL (8.4-11.0); CHLORIDE 109 mmol/L (98-107); CREATININE 2.91 mg/dL (0.55-1.30); GLUCOSE 145 mg/dL (70-99); POTASSIUM 4.4 mmol/L (3.5-5.1); SODIUM SERUM 144 mmol/L (136-145); UREA NITROGEN, BLOOD 67 mg/dL (8-21)
[2017-05-02 06:55] LABS: HEMATOCRIT 35.4 % (36-48); HEMOGLOBIN 11.9 g/dL (12.0-16.0); MEAN CORPUSCULAR HEMOGLOBIN 31 pg (27-31); MEAN CORPUSCULAR HGB CONC 34 % (32-36); MEAN CORPUSCULAR VOLUME 94 fL (79.0-98.0); PLATELET COUNT (AUTO) 102 K/uL (130-430); RED BLOOD CELL COUNT(AUTO) 3.78 MIL/uL (4.2-6.2); RED CELL DISTRIBUTION WIDTH 15.4 % (9.0-15.0); WHITE BLOOD COUNT (AUTO) 10.5 K/uL (4.8-10.8)
[2017-05-02] MEDS: ALBUTEROL SULFATE 0.083% 2.5 MG/3 ML VIAL.NEB INH SCH ×3 (07:00→20:07)
[2017-05-02 07:07] LABS: ALANINE AMINOTRANSFERASE 16 U/L (12-78); ALBUMIN 2.9 g/dL (3.4-4.8); ASPARTATE AMINOTRANSFERASE 42 U/L (10-37); PHOSPHORUS 4.5 mg/dL (2.7-4.5); TOTAL BILIRUBIN 1.6 mg/dL (0.0-1.0)
--- NOTE | 2017-05-02 07:30 | NUR ---
ASSUMPTION OF CARE REPORT RECEIVED FROM WILLIAMS SIM. PT IN BED WITH EYES CLOSED, NO SIGNS DISTRESS NOTED. VSS. VENT SETTINGS: AC 28, 550, 60%, PEEP8, O2 SAT 98%. CARDIZEM DRIP INFUSING AT 15MG/HR, HR 152. MIDLINE ABDOM INCISION W/ DRESSING CDI, CONI DRAIN MINIMAL RED DRAINAGE. BED IN LOWEST POSITION, HOB ELEVATED, CALL LIGHT IN REACH. WILL CONTINUE TO MONITOR.
[2017-05-02] MEDS: DILTIAZEM HCL 125 MG in D5W 100 ML IV SCH ×2 (07:46→17:32)
[2017-05-02 07:51] LABS: GFR AFRICAN AMERICAN 21 mL/min (>90)
--- NOTE | 2017-05-02 08:08 | NUR ---
G: CALLED TO DR. LUCIANO REGARDING [facility] [phone],MESSAGE LEFT TO MICHAEL.
--- NOTE | 2017-05-02 08:10 | NUR ---
CRITICAL ABG ABG RESULTS RECEIVED, CRITICAL VALUE: BE -7.1. CALL PLACED TO DR LUCIANO.
[2017-05-02] MEDS: IPRATROPIUM BROM 0.5 MG/2.5 ML VIAL.NEB (ATROVENT) INH SCH ×3 (08:23→20:08)
[2017-05-02 08:36] LABS: TRIGLYCERIDES 48 mg/dL (30-150)
[2017-05-02 08:37] LABS: HDL CHOLESTEROL 20 mg/dL (>55); LDL CHOLESTEROL 10 mg/dL (<100)
--- NOTE | 2017-05-02 08:50 | NUR ---
MD ROUNDS DR REYES HERE TO EVALUATE PT. ORDERS FOR CHANGE IN IVF RECEIVED.
[2017-05-02] MEDS: LEVOTHYROXINE SODIUM 0.088 MG TABLET PO SCH (09:00)
[2017-05-02] MEDS: DULoxetine HCL 30 MG CAPSULE.DR (CYMBALTA) PO SCH (09:00)
[2017-05-02] MEDS: ARIPiprazole 2 MG TAB PO SCH (09:00)
[2017-05-02] MEDS: METOPROLOL TARTRATE 25 MG TABLET PO SCH ×2 (09:00→20:36)
[2017-05-02] MEDS: FLUoxetine HCL 10 MG CAPSULE (PROzac) PO SCH (09:00)
--- NOTE | 2017-05-02 09:00 | NUR ---
MD ROUNDS DR LUCIANO HERE TO EVALUATE PT. AWARE OF ABG RESULTS. ORDERS RECEIVED FOR 10MG LABATELOL IVP D/T RAPID HR DESPITE BEING ON CARDIZEM DRIP 15MG/HR.
[2017-05-02] MEDS ORDERED: LABETALOL 100 MG/ 20ML VIAL IVP ONE ×2 (09:15)
--- NOTE | 2017-05-02 09:15 | NUR ---
RT NOTES DECREASED FIO2 TO 50%. CHIQUIS PRIETO MADE AWARE. WILL CONTINUE MONITORING.
[2017-05-02] MEDS: NACL 0.9% 1,000 ML IV SCH ×3 (09:30→23:14)
--- NOTE | 2017-05-02 09:30 | NUR ---
LABETALOL 10MG IVP LABETALOL GIVEN AT 0916. HR NOW IN 120s, DOWN FROM 150s. WILL CONTINUE TO MONITOR.
--- NOTE | 2017-05-02 09:50 | NUR ---
MD ROUNDS DR SMITH HERE TO EVALUATE PT. ORDERS FOR TPN RECEIVED.
[2017-05-02] MEDS ORDERED: COMMUNICATION ORDER XX ONE (10:00)
[2017-05-02] MEDS ORDERED: *TPN PER PHARMACY XX PRN (10:15)
[2017-05-02 10:21] LABS: CHOLESTEROL < 50 mg/dL (<200)
[2017-05-02 10:43] LABS: BAND % (MANUAL) 18 % (0-6); BASOPHILS % (MANUAL) 0 % (0-2); EOSINOPHILS % (MANUAL) 0 % (0-7); LYMPHOCYTES % (MANUAL) 9 % (20-46); METAMYELOCYTES % 4 % (0-0); MONOCYTES % (MANUAL) 9 % (0-11)
[2017-05-02 10:44] LABS: MYELOCYTES % 4 % (0-0)
--- NOTE | 2017-05-02 11:05 | NUR ---
MD ROUNDS DR CHILDSIL HERE TO EVALUATE PT. NO NEW ORDERS RECEIVED AT THIS TIME.
--- NOTE | 2017-05-02 14:30 | NUR ---
MD ROUNDS DR SMITH HERE TO EVALUATE PT. MADE MD AWARE OF PT'S HR STARTING TO INCREASE AGAIN (NOW IN 130s), ORDERS RECEIVED FOR METOPROLOL IVP.
[2017-05-02] MEDS ORDERED: METOPROLOL TARTRATE 5 MG/5 ML VIAL IVP PRN (14:45)
[2017-05-02] MEDS ORDERED: METOPROLOL TARTRATE 5 MG/5 ML VIAL IVP SCH (14:45)
--- NOTE | 2017-05-02 15:00 | NUR ---
RT NOTES DECREASED FIO2 TO 40%. PT SPO2 IS AT 93% AT THIS TIME. CHIQUIS PRIETO NOTIFIED. WILL CONTINUE MONITORING.
[2017-05-02 15:40] LABS: CREATININE 2.9 mg/dL (0.55-1.30); POTASSIUM 4.3 mmol/L (3.5-5.1)
[2017-05-02 15:41] LABS: HEMATOCRIT 35.3 % (36-48); HEMOGLOBIN 11.7 g/dL (12.0-16.0); MEAN CORPUSCULAR HEMOGLOBIN 31 pg (27-31); MEAN CORPUSCULAR HGB CONC 33 % (32-36); MEAN CORPUSCULAR VOLUME 93 fL (79.0-98.0); RED BLOOD CELL COUNT(AUTO) 3.78 MIL/uL (4.2-6.2); RED CELL DISTRIBUTION WIDTH 15.4 % (9.0-15.0)
[2017-05-02 15:42] LABS: WHITE BLOOD COUNT (AUTO) 13.6 K/uL (4.8-10.8)
[2017-05-02 15:57] LABS: PLATELET COUNT (AUTO) 185 K/uL (130-430)
[2017-05-02 15:59] LABS: BAND % (MANUAL) 14 % (0-6); EOSINOPHILS % (MANUAL) 0 % (0-7); LYMPHOCYTES % (MANUAL) 2 % (20-46); MONOCYTES % (MANUAL) 2 % (0-11)
--- NOTE | 2017-05-02 16:30 | NUR ---
CHG CHG BATH GIVEN TO PT. LINEN CHANGED. PT TOLERATED WELL, VSS. NO SIGNS DISTRESS NOTED. WILL CONTINUE TO MONITOR.
[2017-05-02 16:34] LABS: CALCIUM 6.5 mg/dL (8.4-11.0)
--- NOTE | 2017-05-02 16:38 | NUR ---
PAGE OUT TO DR. REYES FOR ORDERS.
--- NOTE | 2017-05-02 16:40 | NUR ---
MD ROUNDS DR MCGEE HERE TO EVALUATE PT. MADE MD AWARE OF CRITICAL CALCIUM LEVEL, ORDERS RECEIVED.
[2017-05-02 16:47] LABS: BASOPHILS % (MANUAL) 0 % (0-2)
--- NOTE | 2017-05-02 17:05 | NUR ---
IV PLACEMENT #18 GAUGE IV IN LEFT WRIST ADVERTENTLY DISLODGED. #18 gauge angiocath placed to LEFT FOREARM. Use of asceptic technique. Opsite placed over site. Blood return noted. Flushed with 10 cc of normal saline. No evidence of infiltration noted. Patient tolerated WELL.
[2017-05-02] MEDS ORDERED: CALCIUM GLUCONATE 1 GM/10 ML VIAL IVP ONE (17:15)
[2017-05-02] MEDS: [UNRECOGNIZED DRUG - OTHER] IV SCH ×11 (17:34)
[2017-05-02] MEDS: TPN PERIPHERAL IV SCH ×11 (17:34)
[2017-05-02] MEDS: SODIUM ACETATE IV SCH ×11 (17:34)
[2017-05-02] MEDS: POTASSIUM CHLORIDE IV SCH ×11 (17:34)
[2017-05-02] MEDS: FAT EMULSIONS 250 ML IV SCH (17:35)
--- NOTE | 2017-05-02 19:08 | NUR ---
ENDORSEMENT REPORT GIVEN TO AISLINN SIM USING SBAR APPROACH.
--- NOTE | 2017-05-02 19:20 | NUR ---
PM SHIFT ASSESSMENT Pt awake and alert, able to follow commands and answer yes or no questions by nodding head. No signs of acute distress or SOB noted. AFIB noted on monitor. ETT size 7 and 23 cm @ LL. Current vent settings are being tolerated. Butcher catheter draining to gravity. IV to LFA, RFA and RH with IVF infusing/no signs of infiltration. Dressing in place to mid abdomen, dressing clean/dry/intact with CONI drain to right side, serosanguineous drainage noted. Safety precautions in place, will continue to monitor.
--- NOTE | 2017-05-02 20:20 | NUR ---
Dr. Sullivan at bedside examining patient.
[2017-05-02] MEDS: HYDROmorphone 1 MG INJ. 1 MG/ML AMPUL IVP PRN (21:37)
--- NOTE | 2017-05-02 22:50 | NUR ---
Pt converted from AFIB to SR. Cardizem drip @ 10mg/min. Will continue to monitor. Addendum: 05/03/17 at 0201 by Renetta Padgett RN Cardizem drip @ 15mg/min.
[2017-05-03] VITALS (36 sets, daily range): BP systolic 98–146; BP diastolic 43–105; PULSE 86–138; RESP 18–31; TEMP 97.5–98.9; O2SAT 93–100; Ht 168.9 cm; Wt 90.3 kg
[2017-05-03] MEDS: metroNIDAZOLE 500 mg/NS 100 ML IV SCH ×5 (00:40→23:21)
[2017-05-03] MEDS: ALBUTEROL SULFATE 0.083% 2.5 MG/3 ML VIAL.NEB INH SCH ×4 (01:01→19:51)
[2017-05-03] MEDS: IPRATROPIUM BROM 0.5 MG/2.5 ML VIAL.NEB (ATROVENT) INH SCH ×4 (01:01→19:51)
[2017-05-03] MEDS: DILTIAZEM HCL 125 MG in D5W 100 ML IV SCH (01:51)
--- NOTE | 2017-05-03 02:03 | NUR ---
Jerson @ 15mg/HR* Addendum: 05/03/17 at 0203 by Renetta Padgett RN DAISHA HIDALGO
[2017-05-03] MEDS: HYDROmorphone 1 MG INJ. 1 MG/ML AMPUL IVP PRN (02:39)
[2017-05-03] MEDS: HYDROmorphone 2 MG/ML VIAL IVP PRN ×5 (04:19→20:46)
--- NOTE | 2017-05-03 04:25 | NUR ---
Pt resting in bed. VS stable. C/O of feeling hot, pt is afebrile. Ice packs were provided. Will continue to monitor.
[2017-05-03] MEDS: NACL 0.9% 1,000 ML IV SCH (05:42)
[2017-05-03] MEDS: PIPERACILLIN/TAZO 2.25G/DEX-IS 50 ML IV SCH ×4 (05:42→23:21)
[2017-05-03 06:45] LABS: HEMATOCRIT 34.6 % (36-48); HEMOGLOBIN 11.6 g/dL (12.0-16.0); MEAN CORPUSCULAR HEMOGLOBIN 31 pg (27-31); MEAN CORPUSCULAR HGB CONC 34 % (32-36); MEAN CORPUSCULAR VOLUME 93 fL (79.0-98.0); PLATELET COUNT (AUTO) 99 K/uL (130-430); RED BLOOD CELL COUNT(AUTO) 3.73 MIL/uL (4.2-6.2); RED CELL DISTRIBUTION WIDTH 15.5 % (9.0-15.0); WHITE BLOOD COUNT (AUTO) 16.6 K/uL (4.8-10.8)
[2017-05-03 06:52] LABS: CALCIUM 7.3 mg/dL (8.4-11.0); CREATININE 3.41 mg/dL (0.55-1.30); POTASSIUM 3.9 mmol/L (3.5-5.1)
[2017-05-03 06:59] LABS: PHOSPHORUS 3.9 mg/dL (2.7-4.5)
--- NOTE | 2017-05-03 07:15 | NUR ---
Pt care endorsed to CHIQUIS Jasso at bedside using nursing SBAR.
--- NOTE | 2017-05-03 07:30 | NUR ---
ASSUMPTION OF CARE REPORT RECEIVED FROM AISLINN SIM. PT IN BED WITH EYES CLOSED, VSS, NO SIGNS DISTRESS NOTED. 02 SAT 98% ON VENT: AC 28, 550, 40%, PEEP8. SR ON MONITOR, CARDIZEM DRIP AT 10MG/HR. TPN INFUSING AT 43ML/HR, LIPIDS AT 10ML/HR, NS AT 150ML/HR. NAVARRO DRAINING YELLOW URINE INTO BAG. MIDLINE ABDOMINAL INCISION, DRESSING CDI, CONI DRAIN WITH MINIMAL RED OUPUT. HOB ELEVATED, BED IN LOWEST POSITION, CALL LIGHT IN REACH. WILL CONTINUE TO MONITOR.
--- NOTE | 2017-05-03 08:00 | NUR ---
MD ROUNDS DR XAVIER HERE TO EVALUATE PT. AWARE OF CRITICAL ABG RESULTS. NO NEW ORDERS RECEIVED AT THIS TIME.
[2017-05-03] MEDS: ARIPiprazole 2 MG TAB PO SCH (08:47)
[2017-05-03] MEDS: METOPROLOL TARTRATE 25 MG TABLET PO SCH ×2 (08:47→21:00)
[2017-05-03] MEDS: FLUoxetine HCL 10 MG CAPSULE (PROzac) PO SCH (08:47)
[2017-05-03] MEDS: DULoxetine HCL 30 MG CAPSULE.DR (CYMBALTA) PO SCH (08:47)
[2017-05-03] MEDS: LEVOTHYROXINE SODIUM 0.088 MG TABLET PO SCH (08:47)
--- NOTE | 2017-05-03 09:20 | NUR ---
RT AUDIBLE NOISES COMING FROM ETT, RT INFLATED ETT CUFF WITH 2CC. WILL CONTINUE TO MONITOR.
[2017-05-03] MEDS: LORazepam 2 MG/ML VIAL IVP PRN ×4 (09:27→23:21)
[2017-05-03 09:38] LABS: BAND % (MANUAL) 28 % (0-6); BASOPHILS % (MANUAL) 0 % (0-2); EOSINOPHILS % (MANUAL) 0 % (0-7); LYMPHOCYTES % (MANUAL) 3 % (20-46); MONOCYTES % (MANUAL) 2 % (0-11)
[2017-05-03 09:39] LABS: METAMYELOCYTES % 3 % (0-0); MYELOCYTES % 4 % (0-0)
[2017-05-03] MEDS ORDERED: FUROSEMIDE 40 MG/4 ML VIAL IVP ONE (10:00)
--- NOTE | 2017-05-03 10:02 | NUR ---
ROUNDS DR SMITH HERE TO EVALUATE PT. MADE AWARE OF PT'S DECREASED URINE OUTPUT. ORDERS RECEIVED. Addendum: 05/03/17 at 1538 by Louisa Martins RN ORDERED TO TURN OFF CARDIZEM DRIP BECAUSE PT HAS CONVERTED TO SR.
--- NOTE | 2017-05-03 11:00 | NUR ---
MD ROUNDS DR CHILDSIL HERE TO EVALUATE PT. NO NEW ORDERS RECEIVED AT THIS TIME.
[2017-05-03] MEDS: SODIUM BICARBONATE 8.4% JECT 100 MEQ in D5W 1,000 ML IV SCH (12:51)
--- NOTE | 2017-05-03 13:20 | NUR ---
REINTUBATION AUDIBLE NOISES CONTINUE TO BE HEARD FROM ETT DESPITE RT REINFLATING THE CUFF. DR OVIEDO REINTUBATED PT. 7.0 ETT, 23CM LIPLINE. PT PLACED BACK ON VENT: AC 28, 550, 40%, PEEP8. WILL MONITOR FOR PT RESPONSE
[2017-05-03] MEDS ORDERED: VECURONIUM BROMIDE 10 MG/VIAL (NORCURON) IVP ONE (13:45)
--- NOTE | 2017-05-03 14:20 | NUR ---
MD ROUNDS DR GOMEZ HERE TO EVALUATE PT. MD AWARE OF SPUTUM CULTURE AND SURGERY CULTURE RESULTS. NO NEW ORDERS RECEIVED AT THIS TIME.
--- NOTE | 2017-05-03 14:28 | NUR ---
Dietitian Recommendation Recommend D40% AA 8.5% at 75ml/hr (goal rate); IL 20% at 10ml/hr daily via peripheral line. Provides: 2010 kcal/day; 76 gm Protein/day 1824 ml free water/day, and GIR: 2.7 gm CHO/kg/min Meets: 92% of estimated caloric needs and 158% of estimated protein needs. Please see Nutrition Assessment for details.
--- NOTE | 2017-05-03 15:20 | NUR ---
CXR X-RAY HERE TO DO CXR AFTER PT REINTUBATION.
--- NOTE | 2017-05-03 16:15 | NUR ---
MD ROUNDS DR ROBERSON HERE TO EVALUATE PT. NO NEW ORDERS RECEIVED AT THIS TIME.
[2017-05-03] MEDS: DILTIAZEM HCL 25 MG/5 ML VIAL IVP PRN (17:17)
[2017-05-03] MEDS: [UNRECOGNIZED DRUG - OTHER] IV SCH ×11 (17:27)
[2017-05-03] MEDS: TPN PERIPHERAL IV SCH ×11 (17:27)
[2017-05-03] MEDS: FAT EMULSIONS 250 ML IV SCH (17:27)
[2017-05-03] MEDS: SODIUM ACETATE IV SCH ×11 (17:27)
[2017-05-03] MEDS: POTASSIUM CHLORIDE IV SCH ×11 (17:27)
--- NOTE | 2017-05-03 17:45 | NUR ---
CHG CHG BATH GIVEN TO PT. LINEN CHANGED. PT TOLERATED WELL, VSS. HOB ELEVATED, BED IN LOWEST POSITION, CALL LIGHT IN REACH.
--- NOTE | 2017-05-03 19:39 | NUR ---
ENDORSEMENT BEDSIDE REPORT GIVEN TO STERLING SIM USING SBAR APPROACH.
--- NOTE | 2017-05-03 20:56 | NUR ---
Patient awake on and off intubated to ventilator HOB elevated , left arm hand edema noted , kept elevated skin dry warm assist for position change no ventilator alarming comfort measures implemented & helpful .
--- NOTE | 2017-05-03 20:59 | NUR ---
Patient agitated facial grimacing noted 7/10 on pain scale , pillows used for off loading & helpful .
--- NOTE | 2017-05-03 21:00 | NUR ---
DILAUDID 2 MG IVP administer for general pain as ordered continue to monitor .
--- NOTE | 2017-05-03 22:01 | NUR ---
EDEMA is noted to left arm & hand kept elevated up on pillow , off loading also helpful , patient is responsive to light touch and alert / .
[2017-05-04] VITALS (38 sets, daily range): BP systolic 85–146; BP diastolic 54–98; PULSE 98–139; RESP 16–28; TEMP 97.2–99; O2SAT 94–99
--- NOTE | 2017-05-04 00:55 | NUR ---
Endotracheal suction up right position , HOB kept elevated on mechanical ventilation moderate amount of secretions procedure tolerated 02 SAT 96 % .
--- NOTE | 2017-05-04 00:57 | NUR ---
ZOSYN 2.25 GM IVPB administer as ordered , skin dry warm no adverse reaction noted chest movement shallow also symmetrical / .
[2017-05-04] MEDS: ALBUTEROL SULFATE 0.083% 2.5 MG/3 ML VIAL.NEB INH SCH ×4 (01:10→19:40)
[2017-05-04] MEDS: IPRATROPIUM BROM 0.5 MG/2.5 ML VIAL.NEB (ATROVENT) INH SCH ×4 (01:10→19:39)
[2017-05-04] MEDS: SODIUM BICARBONATE 8.4% JECT 100 MEQ in D5W 1,000 ML IV SCH ×2 (01:50→13:41)
[2017-05-04] MEDS: DILTIAZEM HCL 25 MG/5 ML VIAL IVP PRN ×4 (02:05→09:39)
--- NOTE | 2017-05-04 02:31 | NUR ---
DILTIAZEM 10 IVP administer for elevated HR 133 - 144 as ordered , & improvement noted HR 112 - 114 bpm noted continue to monitor .
[2017-05-04] MEDS: LORazepam 2 MG/ML VIAL IVP PRN ×2 (02:46→04:45)
[2017-05-04] MEDS: PIPERACILLIN/TAZO 2.25G/DEX-IS 50 ML IV SCH ×4 (05:04→23:34)
[2017-05-04] MEDS: metroNIDAZOLE 500 mg/NS 100 ML IV SCH ×4 (05:04→23:34)
--- NOTE | 2017-05-04 05:34 | NUR ---
LORAZEPAM 1 MG IVP administer for agitation as ordered & helpful .
[2017-05-04] MEDS: HYDROmorphone 2 MG/ML VIAL IVP PRN ×4 (06:43→22:03)
[2017-05-04] MEDS ORDERED: VECURONIUM BROMIDE 10 MG/VIAL (NORCURON) IV ONE (07:00)
[2017-05-04 07:06] LABS: ALBUMIN 2.2 g/dL (3.4-4.8); CALCIUM 7.9 mg/dL (8.4-11.0); CREATININE 3.56 mg/dL (0.55-1.30); PHOSPHORUS 3.2 mg/dL (2.7-4.5); POTASSIUM 3.8 mmol/L (3.5-5.1); TOTAL BILIRUBIN 0.6 mg/dL (0.0-1.0)
[2017-05-04 07:07] LABS: EOSINOPHILS % (AUTO) 0.1 % (0.0-4.0); HEMATOCRIT 34.2 % (36-48); HEMOGLOBIN 11.7 g/dL (12.0-16.0); LYMPHOCYTES # (AUTO) 0.4 K/uL (1.0-5.5); LYMPHOCYTES % (AUTO) 2.4 % (20.5-51.5); MEAN CORPUSCULAR HEMOGLOBIN 32 pg (27-31); MEAN CORPUSCULAR HGB CONC 34 % (32-36); MEAN CORPUSCULAR VOLUME 92 fL (79.0-98.0); MONOCYTES # (AUTO) 0.7 K/uL (0.0-1.0); NEUTROPHILS # (AUTO) 15.9 K/uL (1.8-7.7); NEUTROPHILS % (AUTO) 93.5 % (40.0-70.0); PLATELET COUNT (AUTO) 97 K/uL (130-430); RED BLOOD CELL COUNT(AUTO) 3.72 MIL/uL (4.2-6.2); RED CELL DISTRIBUTION WIDTH 15.2 % (9.0-15.0)
--- NOTE | 2017-05-04 07:15 | NUR ---
AM assessment Received Pt alert, awake, orientated x3. Pt able to follow commands and gesture hands for needs. Pt breathing via ETT to vent. Vent settings AC 28, TV 550, FiO 40%, PEEP 8. Lung sounds auscultated, crackles noted throughout all lobes. O2 sat @ 97 % via vent settings. Tachycardia noted on the telemonitor Hr 143, B/P 100/52. Cardiac medication and pain medication was administered by previous RN. Pt denies chest pain. No s/s of edema noted. Abd auscultated, hypoactive bowel sounds noted throughout all quadrant. Abd. soft and non distended. Pt c/o abd. pain 8/10 upon light palpation. Abd incision noted. Incision with jose f noted. Incision is well approximated, no s/s of inflammation, redness, or drainage noted. Dressing is clean, dry, and intact. CONI drainage located left lower abd. Serosanguineous noted in CONI drainage. CONI bulb closed to suction. Butcher cath noted. Butcher cath patent draining enid yellow urine. Butcher cath secure device in placed. Bilateral radial pulse and pedal pulse noted. AROM BUE and BLE. Weak muscle noted 3/5 BUE and BLE. Assessment done, plan of care discussed with Pt, call light within easy reach, bed at lowest position, HOB elevated 45 degree angle, will continue to monitor.
--- NOTE | 2017-05-04 08:44 | NUR ---
0830 pt placed on rate of AC18. Pt tolerating. Addendum: 05/04/17 at 0844 by Harmony Gomes RT Amended: Links added.
[2017-05-04] MEDS: FLUoxetine HCL 10 MG CAPSULE (PROzac) PO SCH (09:00)
[2017-05-04] MEDS: DULoxetine HCL 30 MG CAPSULE.DR (CYMBALTA) PO SCH (09:00)
[2017-05-04] MEDS: METOPROLOL TARTRATE 25 MG TABLET PO SCH (09:00)
[2017-05-04] MEDS: LEVOTHYROXINE SODIUM 0.088 MG TABLET PO SCH (09:00)
[2017-05-04] MEDS: ARIPiprazole 2 MG TAB PO SCH (09:00)
[2017-05-04] MEDS ORDERED: DILTIAZEM HCL 25 MG/5 ML VIAL IVP ONE (10:30)
[2017-05-04] MEDS: DILTIAZEM HCL 125 MG in D5W 100 ML IV SCH ×2 (11:11→18:37)
--- NOTE | 2017-05-04 12:30 | NUR ---
Elevated HR Pt awake, alert, orientated x3. Pt tolerating vent settings. Pt denies pain or discomfort. Normal sinus tachycardia [address] noted [address] the Telemonitor[address] Dr. Pathak at the bedside discussing plan of care. Informed Dr. Pathak IVMargareth cardiac medication is ineffective. New orders given, read back, and noted to start Cardizem IV drip per protocol. Currently awaiting for pharmacy to verify medication. Informed Pt to push the call light if Pt needs assistance with anything. Pt hand gestured for understanding. Call light within easy reach, bed at lowest position, HOB elevated 45 degree angle, will continue to monitor.
[2017-05-04] MEDS ORDERED: FUROSEMIDE 40 MG/4 ML VIAL IVP ONE (12:45)
[2017-05-04] MEDS ORDERED: ENOXAPARIN SODIUM 40 MG/0.4 ML SYRINGE SUBCUT ONE (12:45)
[2017-05-04] MEDS ORDERED: INSULIN REGULAR, HUMAN 100 UNITS/ML, 10 ML VIAL (novoLIN R) SUBCUT PRN (12:45)
[2017-05-04] MEDS ORDERED: DEXTROSE 50% JECT 50 ML DISP.SYRIN IVP PRN ×2 (12:45)
[2017-05-04] MEDS ORDERED: LEVOTHYROXINE SODIUM 0.1 MG VIAL IVP ONE (13:00)
[2017-05-04 13:31] LABS: PROTHROMBIN TIME 11.1 SECS (9.5-12.5)
[2017-05-04] MEDS: METOPROLOL TARTRATE 5 MG/5 ML VIAL IVP PRN (13:58)
[2017-05-04] MEDS ORDERED: PANTOPRAZOLE SODIUM 40 MG/VIAL (PROTONIX) IVP ONE (14:00)
--- NOTE | 2017-05-04 16:00 | NUR ---
[place] of patients care. Received report from CHIQUIS Sanchez. Patient is stable at this time. Patient infusing Cardizem drip 15mcg (15ml/hr). TPN at 4.79ml. Lipids at 10ml/hr. Sodium bicarb at 60 ml/hr. Patients at bedside. educated them both on the PICC line and he signed consent.
--- NOTE | 2017-05-04 16:13 | NUR ---
Oral care provided.
--- NOTE | 2017-05-04 16:56 | NUR ---
Rounds Patient noted with facial grimacing at this time. When asked if she wanted pain medication she nodded yes. Patient given pain medication at this time. Will reassess the pain. at bedside and educated on the medication being administered as well.
--- NOTE | 2017-05-04 17:55 | NUR ---
PICC line CHIQUIS Cervantes at bedside for PICC insertion.
[2017-05-04] MEDS: INSULIN REGULAR, HUMAN 100 UNITS/ML, 10 ML VIAL (novoLIN R) SUBCUT PRN ×2 (18:41→23:37)
--- NOTE | 2017-05-04 18:48 | NUR ---
PICC line placement confirmed with Xray and PICC RN Helen stated the PICC line is ready for use. PICC line site capped with blue ports.
--- NOTE | 2017-05-04 19:45 | NUR ---
Report endorsed to the oncoming RN Yuri at bedside. Patient is stable at this time. Continues to be on the cardizen drip.
[2017-05-04] MEDS: FAT EMULSIONS 250 ML IV SCH (20:33)
[2017-05-04] MEDS: TPN PERIPHERAL IV SCH ×11 (20:35)
[2017-05-04] MEDS: [UNRECOGNIZED DRUG - OTHER] IV SCH ×11 (20:35)
[2017-05-04] MEDS: ENOXAPARIN SODIUM 40 MG/0.4 ML SYRINGE SUBCUT SCH (20:35)
[2017-05-04] MEDS: POTASSIUM CHLORIDE IV SCH ×11 (20:35)
[2017-05-04] MEDS: SODIUM ACETATE IV SCH ×11 (20:35)
--- NOTE | 2017-05-04 20:41 | NUR ---
Patient awake intubated to ventilator suction upright position moderate amount of thick green sputum minimal vent alarming patient tolerated / .
--- NOTE | 2017-05-04 21:38 | NUR ---
TPN PERIPHERAL infusing @ 42 ml hour LIPOSYN 20 % NEW BAGS started infusing at 10 ml hour to PICC line left upper arm site clean dry transparent dressing inplace tolerating .
--- NOTE | 2017-05-04 22:14 | NUR ---
DILAUDID 2 MG IVP administer for general discomfort 7/ off loading with pillows also helpful .
--- NOTE | 2017-05-04 22:16 | NUR ---
abdominal dressing intact Lobo Moore drain in place no active bleeding noted , site clean & dry .
[2017-05-05] VITALS (33 sets, daily range): BP systolic 100–151; BP diastolic 48–84; PULSE 65–119; RESP 14–31; TEMP 97.2–98.3; O2SAT 94–99
[2017-05-05] MEDS: ALBUTEROL SULFATE 0.083% 2.5 MG/3 ML VIAL.NEB INH SCH ×4 (00:55→19:45)
[2017-05-05] MEDS: IPRATROPIUM BROM 0.5 MG/2.5 ML VIAL.NEB (ATROVENT) INH SCH ×4 (00:56→19:45)
[2017-05-05] MEDS: DILTIAZEM HCL 125 MG in D5W 100 ML IV SCH ×2 (03:06→12:19)
[2017-05-05] MEDS: HYDROmorphone 2 MG/ML VIAL IVP PRN ×4 (03:11→18:35)
--- NOTE | 2017-05-05 03:18 | NUR ---
ORAL CARE PROVIDED with CHLORHEXIDINE SOLUTION and tolerated .
--- NOTE | 2017-05-05 03:21 | NUR ---
CARDIZEM GTT @ 15 MG HOUR HR 98 BPM , BP 128/61 02 SAT 98 % skin dry warm .
--- NOTE | 2017-05-05 03:24 | NUR ---
DILAUDID 2 MG IVP administer for general discomfort 02/24 , comfort measures also helpful .
[2017-05-05] MEDS: SODIUM BICARBONATE 8.4% JECT 100 MEQ in D5W 1,000 ML IV SCH (05:49)
[2017-05-05] MEDS: metroNIDAZOLE 500 mg/NS 100 ML IV SCH ×3 (05:50→17:05)
[2017-05-05] MEDS: PIPERACILLIN/TAZO 2.25G/DEX-IS 50 ML IV SCH ×4 (05:50→23:15)
[2017-05-05] MEDS: INSULIN REGULAR, HUMAN 100 UNITS/ML, 10 ML VIAL (novoLIN R) SUBCUT PRN ×3 (05:59→18:31)
[2017-05-05 06:48] LABS: HEMATOCRIT 35.5 % (36-48); MEAN CORPUSCULAR HEMOGLOBIN 32 pg (27-31); MEAN CORPUSCULAR HGB CONC 34 % (32-36); MEAN CORPUSCULAR VOLUME 93 fL (79.0-98.0); PLATELET COUNT (AUTO) 95 K/uL (130-430); RED BLOOD CELL COUNT(AUTO) 3.81 MIL/uL (4.2-6.2)
--- NOTE | 2017-05-05 07:16 | NUR ---
RECEIVED PATIENT ON BED ASLEEP.BREATHING EVEN AND UNLABORED WITH ETT ATTACHED TO VENTILATOR;TOLERATING SETTINGS WELL.WITH ONGOING IVF AT 60 ML/HR;CARDIZEM DRIP AT 15 MG/HR;TPN AT 42 ML/HR;TPN AT 10 ML/HR;TOLERATING WELL.SAFETY AND FALL PRECAUTIONS IN PLACE.CALL LIGHT WITHIN REACH.
[2017-05-05 07:17] LABS: ALBUMIN 2.1 g/dL (3.4-4.8); CALCIUM 7.9 mg/dL (8.4-11.0); CREATININE 3.27 mg/dL (0.55-1.30); PHOSPHORUS 3.4 mg/dL (2.7-4.5); POTASSIUM 3.9 mmol/L (3.5-5.1); THYROID STIMULATING HORMONE 3.47 uIu/mL (0.34-4.82); TOTAL BILIRUBIN 0.9 mg/dL (0.0-1.0)
--- NOTE | 2017-05-05 08:15 | NUR ---
PATIENT'S CAME TO VISIT;UPDATED REGARDING PATIENT'S CONDITION
[2017-05-05] MEDS: DULoxetine HCL 30 MG CAPSULE.DR (CYMBALTA) PO SCH (08:17)
[2017-05-05] MEDS: FLUoxetine HCL 10 MG CAPSULE (PROzac) PO SCH (08:18)
[2017-05-05] MEDS: PANTOPRAZOLE SODIUM 40 MG/VIAL (PROTONIX) IVP SCH (08:19)
[2017-05-05] MEDS: LEVOTHYROXINE SODIUM 0.1 MG VIAL IVP SCH (08:19)
[2017-05-05] MEDS: ENOXAPARIN SODIUM 40 MG/0.4 ML SYRINGE SUBCUT SCH (08:19)
[2017-05-05] MEDS: ARIPiprazole 2 MG TAB PO SCH (08:20)
--- NOTE | 2017-05-05 08:25 | NUR ---
O2 SAT SAT 99-100%;FIO2 LOWERED DOWN TO 30%
[2017-05-05] MEDS: METOPROLOL TARTRATE 5 MG/5 ML VIAL IVP PRN (09:10)
--- NOTE | 2017-05-05 09:20 | NUR ---
DR. LUCIANO CAME AND EXAMINED THE PATIENT;MADE AWARE OF CHEST XRAY RESULT;WAITING FOR ORDERS Addendum: 05/05/17 at 925 by Vera Lancaster RN CHEST X-RAY=ETT TIP 1.5 CM ABOVE THE LEVI
--- NOTE | 2017-05-05 09:26 | NUR ---
ABG DONE BY RT
[2017-05-05 09:51] LABS: ATYPICAL LYMPHOCYTES % 0 % (0-0); BAND % (MANUAL) 8 % (0-6); BASOPHILS % (MANUAL) 0 % (0-2); EOSINOPHILS % (MANUAL) 0 % (0-7); LYMPHOCYTES % (MANUAL) 9 % (20-46); MONOCYTES % (MANUAL) 3 % (0-11)
--- NOTE | 2017-05-05 13:20 | NUR ---
PATIENT TAPPING CHEST;ASKED IF SHE HAS DIFFICULTY BREATHING;MOVED HEAD UP AND DOWN SIGNALING A YES ANSWER.CZ=[id number].CALLED RT
--- NOTE | 2017-05-05 13:25 | NUR ---
RT CAME AND CHANGED VENTILATOR SETTINGS TO AC 14;UA=444;FIO2=30%;PEEP=5
--- NOTE | 2017-05-05 13:26 | NUR ---
DC PLANNING Received msg from Nazia Bettencourt @ [facility], ph [phone], to return call. Returned call & lt msg w pt's status update.
--- NOTE | 2017-05-05 14:30 | NUR ---
CHECKED PATIENT ;NO ACUTE DISTRESS; AT BEDSIDE
--- NOTE | 2017-05-05 16:00 | NUR ---
PATIENT TRIES TO HOLD ETT WITHOUT ACTUALLY PULLING OUT.CLOSELY MONITORED AND REMINDED PATIENT NOT TO TOUCH THE TUBE.NEEDS ATTENDED TO AND MADE COMFORTABLE IN BED
[2017-05-05] MEDS: FAT EMULSIONS 250 ML IV SCH (17:13)
[2017-05-05] MEDS ORDERED: TPN PERIPHERAL IV SCH ×22 (17:15→18:00)
[2017-05-05] MEDS ORDERED: POTASSIUM CHLORIDE IV SCH ×22 (17:15→18:00)
[2017-05-05] MEDS ORDERED: SODIUM ACETATE IV SCH ×22 (17:15→18:00)
[2017-05-05] MEDS ORDERED: [UNRECOGNIZED DRUG - OTHER] IV SCH ×22 (17:15→18:00)
--- NOTE | 2017-05-05 19:15 | NUR ---
PM SHIFT ASSESSMENT Pt awake and alert, able to follow commands and answer yes or no questions by nodding head. No signs of acute distress or SOB noted. AFIB noted on monitor. ETT size 7 and 23 cm @ LL. Current vent settings are being tolerated. Butcher catheter draining to gravity. IV to RFA, BABATUNDE and PICC line to DENICE with IVF infusing/no signs of infiltration. Dressing in place to mid abdomen, dressing clean/dry/intact with CONI drain to right side, serosanguineous drainage noted. Safety precautions in place, will continue to monitor.
--- NOTE | 2017-05-05 19:15 | NUR ---
PATIENT ON BED ASLEEP.BREATHING EVEN AND UNLABORED WITH ETT ATTACHED TO VENTILATOR;TOLERATING SETTINGS WELL.IVF INFUSING AT 60 ML/HR;TPN AT 42 ML/HR;LIPIDS AT 10 ML/HR;CARDIZEM AT 15ML/HR;NO SIGNS AND SYMPTOMS OF INFILTRATION.WITH NAVARRO CATHETER INTACT AND PATENT DRAINING UMER COLORED URINE.SAFETY AND FALL PRECAUTIONS IN PLACE.CALL LIGHT WITHIN REACH.ENDORSED ALL CARE TO AISLINN SIM
[2017-05-05] MEDS: HYDROmorphone 1 MG INJ. 1 MG/ML AMPUL IVP PRN (19:37)
[2017-05-05] MEDS: LORazepam 2 MG/ML VIAL IVP PRN (21:20)
[2017-05-05] MEDS ORDERED: DILTIAZEM HCL 125 MG/25 ML VIAL IV ONE (21:21)
[2017-05-05] MEDS ORDERED: SODIUM BICARBONATE 8.4% JECT 50 MEQ/50 ML SYRINGE ONE (23:17)
[2017-05-06] VITALS (36 sets, daily range): BP systolic 87–139; BP diastolic 34–88; PULSE 90–119; RESP 15–37; TEMP 97.8–98.6; O2SAT 94–98
--- NOTE | 2017-05-06 00:04 | NUR ---
Pt sleeping in bed. VS stable. No signs of SOB or acute distress noted. Will continue to monitor.
[2017-05-06] MEDS: metroNIDAZOLE 500 mg/NS 100 ML IV SCH ×4 (00:13→17:05)
[2017-05-06] MEDS: INSULIN REGULAR, HUMAN 100 UNITS/ML, 10 ML VIAL (novoLIN R) SUBCUT PRN ×4 (00:39→18:02)
[2017-05-06] MEDS: ALBUTEROL SULFATE 0.083% 2.5 MG/3 ML VIAL.NEB INH SCH ×4 (00:50→19:14)
[2017-05-06] MEDS: METOPROLOL TARTRATE 5 MG/5 ML VIAL IVP PRN ×2 (00:50→22:53)
[2017-05-06] MEDS: IPRATROPIUM BROM 0.5 MG/2.5 ML VIAL.NEB (ATROVENT) INH SCH ×4 (00:50→19:14)
--- NOTE | 2017-05-06 03:00 | NUR ---
Pt c/o of pain by nodding yes when asked if she was in pain. PRN pain medications will be given per MD order. Will continue to monitor.
[2017-05-06] MEDS: HYDROmorphone 2 MG/ML VIAL IVP PRN ×2 (03:15→18:29)
--- NOTE | 2017-05-06 05:20 | NUR ---
Pt resting in bed. Pt denies any pain at this time. VS stable. Will continue to monitor.
[2017-05-06] MEDS: PIPERACILLIN/TAZO 2.25G/DEX-IS 50 ML IV SCH ×5 (05:31→23:02)
[2017-05-06] MEDS ORDERED: DILTIAZEM HCL 125 MG/25 ML VIAL IV ONE ×2 (06:03→06:04)
[2017-05-06] MEDS: SODIUM BICARBONATE 8.4% JECT 100 MEQ in D5W 1,000 ML IV SCH (06:24)
[2017-05-06 06:55] LABS: EOSINOPHILS % (AUTO) 0.2 % (0.0-4.0); HEMATOCRIT 30.9 % (36-48); HEMOGLOBIN 10.3 g/dL (12.0-16.0); LYMPHOCYTES # (AUTO) 0.6 K/uL (1.0-5.5); LYMPHOCYTES % (AUTO) 3.8 % (20.5-51.5); MEAN CORPUSCULAR HEMOGLOBIN 31 pg (27-31); MEAN CORPUSCULAR HGB CONC 33 % (32-36); MEAN CORPUSCULAR VOLUME 92 fL (79.0-98.0); MONOCYTES # (AUTO) 0.4 K/uL (0.0-1.0); MONOCYTES % (AUTO) 2.7 % (1.7-9.3); NEUTROPHILS # (AUTO) 13.5 K/uL (1.8-7.7); PLATELET COUNT (AUTO) 90 K/uL (130-430); RED BLOOD CELL COUNT(AUTO) 3.36 MIL/uL (4.2-6.2); RED CELL DISTRIBUTION WIDTH 14.9 % (9.0-15.0); WHITE BLOOD COUNT (AUTO) 14.5 K/uL (4.8-10.8)
--- NOTE | 2017-05-06 07:15 | NUR ---
Pt care endorsed to CHIQUIS Ann at bedside using nursing SBAR.
--- NOTE | 2017-05-06 07:30 | NUR ---
RECEIVED PT ALERT AND COOPERATIVE. #7 ET TO VENT AND COMFORTABLE ON AC 14/550/30%/P5. LUNGS WITH RHONCHI BILATERALLY. SUCTIONING THICK MONDRAGON SECRETIONS FROM ET IN SMALL AMOUNTS. ABD SOFT WITH BOWEL SOUNDS. NAVARRO WITH DARK UMER URINE IN BAD. SCD'S OFF AT THIS TIME. NO PEDAL EDEMA. UPPER ARMS WITH GENERALIZED EDEMA. RIGHT UPPER ARM PICC IN PLACE WITH TPN AT 43CC/HR, LIPIDS AT 10CC/HR. CARDIZEM DRIP AT 15 MG/HR AND IVF WITH BICARB INFUSING AT 40 CC/HR. PT HAS A LEFT SHOULDER 20G IV WITH NS AND ABX INFUSING. MONITOR SHOWS AFIB RATE 120 WITH CARDIZEM DRIP. PTS DRESSING TO ABD DRY AND INTACT. LEFT CONI DRAIN WITH PINK DRAINAGE. PT DENIES PAIN AT THIS TIME. WILL STEPHANIE .
[2017-05-06 07:36] LABS: ALBUMIN 1.8 g/dL (3.4-4.8); CALCIUM 7.8 mg/dL (8.4-11.0); CREATININE 2.81 mg/dL (0.55-1.30); PHOSPHORUS 3.1 mg/dL (2.7-4.5); POTASSIUM 3.5 mmol/L (3.5-5.1); TOTAL BILIRUBIN 0.5 mg/dL (0.0-1.0)
--- NOTE | 2017-05-06 08:10 | NUR ---
20G IV STARTED TO LEFT WRIST FIRST ATTEMPT. IVF SWITCHED TO THIS SITE AND THE LEFT SHOULDER IV REMOVED.
--- NOTE | 2017-05-06 08:47 | NUR ---
SPOKE WITH DR ROB REGARDING CARDIZEM DRIP. HE WOULD LIKE IT TO CONTINUE AT 15MG/HR FOR NOW. REMAINS IN AFIB RATE 110. SBP 110. WILL CONTINUE TO MONITOR. PT SON VISITING AND QUESTIONS ANSWERED.
--- NOTE | 2017-05-06 08:56 | NUR ---
PTS FAMILY REQUESTING ICE PACKS. FAMILY TOOK ICE PACK AND APPLIED IT TO THE BACK OF PTS NECK DIRECTLY ON THE SKIN. I EXPLAINED THAT IT IS NO RECOMMENDED THAT IT BE DONE THAT WAY AND THAT WE ARE NOT ALLOWED TO DO THAT. HE SAID "WELL ALL THE OTHER NURSES HAVE BEEN DOING IT THAT WAY." I POINTED OUT ON THE ICE PACK THE DIRECTIONS FOR USE.
[2017-05-06] MEDS: DULoxetine HCL 30 MG CAPSULE.DR (CYMBALTA) PO SCH (09:00)
[2017-05-06] MEDS: FLUoxetine HCL 10 MG CAPSULE (PROzac) PO SCH (09:00)
[2017-05-06] MEDS: ARIPiprazole 2 MG TAB PO SCH (09:00)
--- NOTE | 2017-05-06 09:35 | NUR ---
DR LUCIANO IN TO SEE PT. ORDERS LEFT.
--- NOTE | 2017-05-06 10:00 | NUR ---
VENT SETTING CHANGE WEANING PARAMETER PER DR. LUCIANO. PT ON SIMV 8, PS10, PEEP5, FIO2 30%. RN YESSENIA MADE AWARE. NO SOB NOTED AT THIS TIME. WILL CONTINUE MONITORING.
--- NOTE | 2017-05-06 10:00 | NUR ---
VENT CHANGES PTS HOB UP. SUCTIONED FOR THICK MONDRAGON SECRETIONS. 02 SATS 100%. PT CHANGED TO SIMV 8/PS /30%/P5 BY RT. WILL MONITOR FOR DISTRESS. AT BEDSIDE.
--- NOTE | 2017-05-06 10:01 | NUR ---
DC PLANNING Received msg from Nazia Bettencourt @ [facility], ph [phone], if pt stable to transfer today. Spoke w Dr Gomez in nsg station, pt not stable to transfer. Called & left msg w Nazia Bettencourt that pt not stable to transfer, still intubated on Cardizem drip.
[2017-05-06] MEDS: ENOXAPARIN SODIUM 40 MG/0.4 ML SYRINGE SUBCUT SCH (10:04)
[2017-05-06] MEDS: PANTOPRAZOLE SODIUM 40 MG/VIAL (PROTONIX) IVP SCH (10:04)
[2017-05-06] MEDS: LEVOTHYROXINE SODIUM 0.1 MG VIAL IVP SCH (10:04)
--- NOTE | 2017-05-06 10:22 | NUR ---
DR DIXON IN TO SEE PT.
--- NOTE | 2017-05-06 10:27 | NUR ---
RR 30'S AND SATS 95%. HR 110 ON SIMV. WILL CONTINUE TO MONITOR PT FOR DISTRESS.
[2017-05-06] MEDS: 0.45% NACL 1,000 ML IV SCH (10:59)
[2017-05-06 12:00] LABS: NEUTROPHILS % (AUTO) 93.3 % (40.0-70.0)
--- NOTE | 2017-05-06 12:40 | NUR ---
Nutrition F/U Admitting Diagnosis Small Bowel Obstruction Reviewed Pertinent Medical/Surgical Hx Medical Record Patient Primary RN Medical History Comment: Small Bowel Obstruction, Hx of Gastric Bypass, HTN, Hx of Supraventricular Tachycardia, Respiratory Failure, Aspiration Pneumonia, E. Coli in sputum, Acute Renal Failure, Hypothyroid, Metabolic Acidosis per MD notes. Subjective Information Pt is POD 6 s/p, exploratory laparotomy w/ obstruction of the proximal jejunum beyond the gastrojejunal bypass anastomosis on 04/30/17. Pt continues intubated on +vent support, w/ TPN and lipids infusing/ Per RN, pending clearance from surgeon for trial of TF; pt will need NGT placement. Per EMR, TPN Intakes: 416 ml 05/06/17. Abd is soft and non-distended w/ hypoactive bowel sounds. I/O: 1224/1390 (-166 ml) per 12 hours. Pt is not yet meeting optimal nutritional needs. Pt is not appropriate for nutrition education. Current Diet Order/Nutrition Support NPO x8 days + D20%, AA8.5% at 43 ml/hr, IL20% at 10ml/hr via peripheral line Patient/Significant Other Unable To Verbalize Education Provided Not Indicated Pertinent Medications synthroid, SSI, lopressor, piperacillin/tazobactam Pertinent Labs BG 208 H, BUN 93 H, CRE 2.81 H, H/H 10.3 L/30.9 L, WBC 14.5 H, RBC 3.36 L Height (Feet) 5 feet Height (Inches) 6.50 inches Weight (Pounds) 199 pounds (admission) Weight (Calculated Kilograms) 90.782677 kilograms Patient Weight 90.265 kg Body Mass Index 31.63 kg/m2 %IBW 150 [place]/Adjusted Body Weight 133 lbs, 60 kg; Adj IBW for Obesity: 149 lb, 68 kg Recent Weight Change Yes - wt loss per Weight Status Obese Gastrointestinal Symptoms None Difficulty With: Chewing Usual Diet At Home Nutrisystem meals Skin Integrity Comment: Sreedhar scale: 14; per nursing notes: medial abd: incision; L hand w/ 1+ pitting edema NEW Estimated Energy Expenditure (kcals/day) 2029 kcal/day (PSU 2009 for critical illness on vent support) Estimated Protein Required (g/day) 36-48 gm/day (0.6-0.8 gm/kg IBW for Renal Dz pre-dialysis) Estimated Fluid Required (l/day) Per MD (ARF) Problem/Etiology/Signs/Symptoms Complicated GI function related to SBO as evidenced by need for PPN support and NPO status. Expected Outcomes/Goals Monitor provision of EN w/ goal of pt meeting at least 75% of estimated nutritional needs, labs trending WNL, normal GI function, skin integrity/wt maintenance. Dietitian Recommendations * Recommend D40%, AA8.5% at 50 ml/hr (goal rate), IL20% at 10 ml/hr daily via peripheral line Provides: 1500 kcal/day, 51 gm protein/day, 1440 ml free water/day, and GIR: 1.8 gm CHO/kg/min Meets: 69% of estimated caloric needs and 106% of estimated protein needs * Consider EN support if/when medically appropriate Follow Up High Risk: F/U in 2-3days
[2017-05-06] MEDS: HYDROmorphone 1 MG INJ. 1 MG/ML AMPUL IVP PRN ×2 (13:35→22:52)
--- NOTE | 2017-05-06 13:44 | NUR ---
RT NOTES: VENT SETTINGS Per RN Marissa, changed vent settings back to AC 14 due to increase R.R.
--- NOTE | 2017-05-06 13:45 | NUR ---
VENT PTS RR 30'S AND 02 SATS 92%. REQUESTED PT TO BE PLACED BACK ON AC 14 TO REST. HOB UP. MEDICATED FOR PAIN WITH DILAUDID. STATES PAIN 8/10 AND ALL OVER.
--- NOTE | 2017-05-06 13:55 | NUR ---
OGT INSERTED WITH RETURN OF DARK COFFEE GROUND DRAINAGE. UNABLE TO INSERT NG VIA NARES.
--- NOTE | 2017-05-06 14:15 | NUR ---
DR LUCIANO INFORMED OF COFFEE GROUND NG DRAINAGE FROM NG. ORDERED TO HOLD TUBE FEEDS. CALL OUT TO DR PINO TO NOTIFY HIM WELL.
--- NOTE | 2017-05-06 14:25 | NUR ---
Dietitian Recommendations * Recommend D40%, AA8.5% at 50 ml/hr (goal rate), IL20% at 10 ml/hr daily via peripheral line Provides: 1500 kcal/day, 51 gm protein/day, 1440 ml free water/day, and GIR: 1.8 gm CHO/kg/min Meets: 69% of estimated caloric needs and 106% of estimated protein needs * Consider EN support if/when medically appropriate LP, RD Please refer to Nutrition Assessment for details.
--- NOTE | 2017-05-06 14:37 | NUR ---
DR ROBERSON, CARDIOLOGY IN TO SEE PT. SPOKE AT LENGTH WITH PT AND HER . QUESTIONS ANSWERED.
[2017-05-06] MEDS: DILTIAZEM HCL 125 MG in D5W 100 ML IV SCH (15:27)
--- NOTE | 2017-05-06 15:34 | NUR ---
STILL NO CALL BACK FORM DR PINO REGARDING COFFEE GROUND DRAINAGE FROM NGT. WILL PAGE A SECOND TIME.
--- NOTE | 2017-05-06 15:38 | NUR ---
INFORMED DR PINO OF COFFEE GROUND DRAINAGE IN . HE SAID IT WOULD BE OK TO FEED THE PT ANYWAY BUT DR LUCIANO SAID NO AT THIS TIME.
--- NOTE | 2017-05-06 16:04 | NUR ---
CHG BATH DONE AND LINEN CHANGED. PT REPOSITIONED TO LEFT SIDE.
--- NOTE | 2017-05-06 16:33 | NUR ---
REPORT GIVEN TO Shane SAMS TO ASSUME CARE.
--- NOTE | 2017-05-06 16:35 | NUR ---
CARE ASSUMED CARE ASSUMED FROM Saulo SLOAN RN. PT IS AWAKE/ALERT ON VENTILATOR, NO RESP DISTRESS. DENIES DISCOMFORT AT THIS TIME. OGT TO LOW INTERMITTENT SUCTION W JACQUE BROWN DRAINAGE. CONI DRAIN HAS SEROSANGUINEOUS DRAINAGE, DRESSING IS INTACT.
[2017-05-06] MEDS: FAT EMULSIONS 250 ML IV SCH (17:05)
[2017-05-06] MEDS: [UNRECOGNIZED DRUG - OTHER] IV SCH ×10 (17:10)
[2017-05-06] MEDS: SODIUM CHLORIDE IV SCH ×10 (17:10)
[2017-05-06] MEDS: POTASSIUM ACETATE IV SCH ×10 (17:10)
[2017-05-06] MEDS: TPN PERIPHERAL IV SCH ×10 (17:10)
[2017-05-06] MEDS: FLUCONAZOLE 100 mg/ NS 50 ML IV SCH (18:00)
--- NOTE | 2017-05-06 19:15 | NUR ---
PM SHIFT ASSESSMENT Pt awake and alert, able to follow commands and answer yes or no questions by nodding head. No signs of acute distress or SOB noted. AFIB noted on monitor. ETT size 7 and 23 cm @ LL. Current vent settings are being tolerated. Butcher catheter draining to gravity. IV to RFA and PICC line to DENICE with IVF infusing/no signs of infiltration. Dressing in place to mid abdomen, dressing clean/dry/intact with CONI drain to right side, serosanguineous drainage noted. OG noted to low intermittent suction with brown drainage. Safety precautions in place, will continue to monitor.
--- NOTE | 2017-05-06 22:05 | NUR ---
HR >110. Lopressor 2.5mg given per MD order. Will continue to monitor.
--- NOTE | 2017-05-06 23:00 | NUR ---
HR 91 now. VS stable, pt resting in bed. Will continue to monitor.
[2017-05-07] VITALS (34 sets, daily range): BP systolic 74–125; BP diastolic 42–94; PULSE 79–106; RESP 16–31; TEMP 97.4–97.9; O2SAT 95–98
[2017-05-07] MEDS: metroNIDAZOLE 500 mg/NS 100 ML IV SCH ×4 (00:05→17:10)
[2017-05-07] MEDS: LORazepam 2 MG/ML VIAL IVP PRN ×2 (00:18→22:45)
[2017-05-07] MEDS: INSULIN REGULAR, HUMAN 100 UNITS/ML, 10 ML VIAL (novoLIN R) SUBCUT PRN ×4 (00:19→17:21)
[2017-05-07] MEDS: DILTIAZEM HCL 125 MG in D5W 100 ML IV SCH ×4 (00:23→23:12)
[2017-05-07] MEDS: IPRATROPIUM BROM 0.5 MG/2.5 ML VIAL.NEB (ATROVENT) INH SCH ×4 (01:06→19:56)
[2017-05-07] MEDS: ALBUTEROL SULFATE 0.083% 2.5 MG/3 ML VIAL.NEB INH SCH ×4 (01:06→19:56)
[2017-05-07] MEDS: HYDROmorphone 2 MG/ML VIAL IVP PRN ×3 (01:45→17:11)
[2017-05-07] MEDS ORDERED: DILTIAZEM HCL 125 MG/25 ML VIAL IV ONE ×2 (03:29)
--- NOTE | 2017-05-07 04:05 | NUR ---
Pt awake in bed. VS stable, denies pain at this time but c/o of feeling hot. ICE packs provided per pt request. Will continue to monitor.
[2017-05-07] MEDS: PIPERACILLIN/TAZO 2.25G/DEX-IS 50 ML IV SCH ×3 (05:11→19:59)
[2017-05-07 06:35] LABS: EOSINOPHILS # (AUTO) 0.1 K/uL (0.0-0.4); EOSINOPHILS % (AUTO) 0.4 % (0.0-4.0); HEMATOCRIT 28.6 % (36-48); HEMOGLOBIN 9.6 g/dL (12.0-16.0); LYMPHOCYTES # (AUTO) 0.5 K/uL (1.0-5.5); LYMPHOCYTES % (AUTO) 3.2 % (20.5-51.5); MEAN CORPUSCULAR HEMOGLOBIN 31 pg (27-31); MEAN CORPUSCULAR HGB CONC 33 % (32-36); MEAN CORPUSCULAR VOLUME 93 fL (79.0-98.0); MONOCYTES # (AUTO) 0.3 K/uL (0.0-1.0); MONOCYTES % (AUTO) 1.9 % (1.7-9.3); NEUTROPHILS # (AUTO) 15.6 K/uL (1.8-7.7); NEUTROPHILS % (AUTO) 94.5 % (40.0-70.0); PLATELET COUNT (AUTO) 100 K/uL (130-430); RED BLOOD CELL COUNT(AUTO) 3.09 MIL/uL (4.2-6.2); RED CELL DISTRIBUTION WIDTH 14.6 % (9.0-15.0); WHITE BLOOD COUNT (AUTO) 16.5 K/uL (4.8-10.8)
[2017-05-07 07:12] LABS: ALBUMIN 1.7 g/dL (3.4-4.8); CALCIUM 8.2 mg/dL (8.4-11.0); CREATININE 2.39 mg/dL (0.55-1.30); POTASSIUM 3.7 mmol/L (3.5-5.1); TOTAL BILIRUBIN 0.4 mg/dL (0.0-1.0)
--- NOTE | 2017-05-07 07:15 | NUR ---
Pt care endorsed to CHIQUIS Acevedo at bedside using nursing SBAR.
--- NOTE | 2017-05-07 08:00 | NUR ---
ASSUMPTION OF CARE: RECEIVED PT AWAKE/ALERT, NO C/O PAIN OR DISCOMFORT, DX:ALTERATION IN COMFORT, R/T S/P EXP LAP, ACUTE RESP FAILURE, ABD INCISION WITH DRSG, CLEAN, DRY AND INTACT, CONI DRAIN, WITH MINIMUM DRAINAGE, 15CC NOTED, BREATH SOUNDS ARE CLEAR, BREATHING UNLABORED, PRESENTLY ON VENTILATOR WITH ETT SIZE 7, LIP LINE 23 CM, SETTINGS ARE AC=14, DJ=314, FIO2=30%, AND PEEP=5, SATURATING 100%, NO S/S OF DISTRESS, OGT TO LOW INTERMITTENT SUCTION, WITH BROWN COLORED, COFFEE GROUND DRAINAGE NOTED, DENIES HAVING PAIN AT THIS TIME, AFEBRILE, B/P=94/63, A FIB WITH OCCASIONAL PVC'S, HR=87, PULSES PALPABLE, BOWEL SOUNDS HYPOACTIVE, ORIENTED TO UNIT, CALL LIGHT PLACED WITHIN REACH, WILL CONT' TO MONITOR AND ASSESS.
[2017-05-07] MEDS: ENOXAPARIN SODIUM 40 MG/0.4 ML SYRINGE SUBCUT SCH (09:27)
[2017-05-07] MEDS: FLUoxetine HCL 10 MG CAPSULE (PROzac) PO SCH (09:27)
[2017-05-07] MEDS: DULoxetine HCL 30 MG CAPSULE.DR (CYMBALTA) PO SCH (09:28)
[2017-05-07] MEDS: ARIPiprazole 2 MG TAB PO SCH (09:28)
[2017-05-07] MEDS: PANTOPRAZOLE SODIUM 40 MG/VIAL (PROTONIX) IVP SCH (09:28)
[2017-05-07] MEDS: LEVOTHYROXINE SODIUM 0.1 MG VIAL IVP SCH (09:28)
--- NOTE | 2017-05-07 09:30 | NUR ---
MERCHANDISE SHOPPER: MORNING MEDS GIVEN, PER ORDERED BY Iris, TOLERATED WELL, WILL CONT' TO MONITOR AND ASSESS.
--- NOTE | 2017-05-07 09:45 | NUR ---
VISIT: AT BEDSIDE FOR ASSESSMENT OF PT, NEW ORDERS GIVEN, WILL CONT' WITH PLAN OF CARE.
--- NOTE | 2017-05-07 10:00 | NUR ---
VISIT: AT BEDSIDE FOR ASSESSMENT OF PT, DISCUSSED POC WITH PT AND , VERBALIZED UNDERSTANDING, NEW ORDERS GIVEN, WILL CONT' WITH PLAN OF CARE.
--- NOTE | 2017-05-07 11:05 | NUR ---
Discharge Planning Received call from BRAIN Bettencourt @ [facility] asking if patient is stable for transfer to in-network facility. Discussed with Dr Gomez who stated that as long as patient is intubated that she is not stable for transfer.
--- NOTE | 2017-05-07 11:09 | NUR ---
1025 PT PLACED ON SIMV8 PS10. PT TOLERATING WELL.RN AWARE. Addendum: 05/07/17 at 1111 by Harmony Gomes RT Amended: Links added.
[2017-05-07] MEDS: 0.45% NACL 1,000 ML IV SCH (11:41)
[2017-05-07] MEDS: HYDROmorphone 1 MG INJ. 1 MG/ML AMPUL IVP PRN (12:09)
--- NOTE | 2017-05-07 12:45 | NUR ---
GLUCOSE MONITORING: BLOOD SUGAR BYNFZ=[id number], COVERED WITH 4 UNITS REGULAR INSULIN, GT FEEDING STARTED AT 50CC/HR PER REQUEST, WILL CONT' WITH TPN/LIPIDS AND IVF, DSALP=123RK/HR, IV SITE INTACT, PATENT, TOLERATING WELL, WILL CONT' TO MONITOR AND ASSESS.
--- NOTE | 2017-05-07 14:00 | NUR ---
NURSES NOTSE: PT REMAINS ON VENT SETTING SIMV=8, FIO2=30%, OA=405, PEEP=5, AND PS=10, SATURATING 97% AND ABOVE, NO DISTRESS NOTED, LUNG SOUNDS ARE CLEAR, BREATHING UNLABORED, CALL LIGHT WITHIN REACH, WILL CONT' WITH PLAN OF CARE.
--- NOTE | 2017-05-07 16:00 | NUR ---
CHG BATH: ORAL CARE GIVEN WITH CHG BATH, ALL LINEN CHANGED, POSITIONED FOR COMFORT, TOLERATED WELL, WILL CONT' WITH PLAN OF CARE.
[2017-05-07] MEDS: FLUCONAZOLE 100 mg/ NS 50 ML IV SCH (17:10)
[2017-05-07] MEDS: FAT EMULSIONS 250 ML IV SCH (17:15)
[2017-05-07] MEDS: [UNRECOGNIZED DRUG - OTHER] IV SCH ×10 (17:17)
[2017-05-07] MEDS: POTASSIUM ACETATE IV SCH ×10 (17:17)
[2017-05-07] MEDS: TPN PERIPHERAL IV SCH ×10 (17:17)
[2017-05-07] MEDS: SODIUM CHLORIDE IV SCH ×10 (17:17)
--- NOTE | 2017-05-07 18:00 | NUR ---
GLUCOSE MONITORING: BLOOD SUGAR YLAUE=413, 4 UNIT REGULAR INSULIN GIVEN SQ, TOLERATING TUBE FEEDING, NO RESIDUAL, CALL LIGHT PLACED WITHIN REACH, WILL CONT' TO MONITOR AND ASSESS.
--- NOTE | 2017-05-07 19:15 | NUR ---
OPENING NOTES PATIENT IS A/O, ABLE TO MAKE NEEDS KNOWN BY NODDING YES OR NO. NO SIGNS OF DISTRESS. BREATHING IS NON LABORED. VITAL SIGNS ARE STABLE. NAVARRO CATHETER PATENT AND DRAINING TO GRAVITY. OG TUBE PATENT WITH TUBE FEEDING RUNNING ORDERED RATE OF 50CC. PICC LINE IS PATENT. TPN, LIPIDS, CARDIZEM, ANTIBIOTICS, AND FLUIDS ARE RUNNING AT ORDERED RATE. DRESSING TO THE ABDOMEN IS CLEAN, DRY, AND INTACT. CONI DRAIN IS NOTED WITH 5CC OF DRAINAGE. VENT SETTINGS ARE VERIFIED AND CURRENTLY BEING TOLERATED. SKIN INTACT. SAFETY MEASURES ARE IN PLACE. CALL LIGHT IS WITHIN REACH. WILL CONTINUE TO MONITOR.
[2017-05-08] VITALS (36 sets, daily range): BP systolic 98–137; BP diastolic 34–71; PULSE 87–107; RESP 21–35; TEMP 97–98.1; O2SAT 96–100
--- NOTE | 2017-05-08 | NUR ---
ROUNDS PATIENT IS IN BED RESTING COMFORTABLE. NO SIGNS OF DISTRESS. BREATHING IS NON LABORED. TUBE FEEDING RESIDUAL WAS 35CC. PATIENT IS TOLERATING TUBE FEEDING WELL. ORAL CARE WAS PROVIDED. CALL LIGHT IS WITHIN REACH. SAFETY MEASURES ARE IN PLACE. WILL CONTINUE TO MONITOR.
[2017-05-08] MEDS: PIPERACILLIN/TAZO 2.25G/DEX-IS 50 ML IV SCH ×4 (00:05→18:31)
[2017-05-08] MEDS: INSULIN REGULAR, HUMAN 100 UNITS/ML, 10 ML VIAL (novoLIN R) SUBCUT PRN ×4 (00:10→18:43)
[2017-05-08] MEDS: IPRATROPIUM BROM 0.5 MG/2.5 ML VIAL.NEB (ATROVENT) INH SCH ×3 (01:08→19:37)
[2017-05-08] MEDS: ALBUTEROL SULFATE 0.083% 2.5 MG/3 ML VIAL.NEB INH SCH ×3 (01:08→19:37)
[2017-05-08] MEDS: LORazepam 2 MG/ML VIAL IVP PRN ×2 (03:09→15:17)
--- NOTE | 2017-05-08 03:36 | NUR ---
ROUNDS PATIENT IS IN BED RESTING. PATIENT WAS AGITATED. ORDER ATIVAN 1MG WAS GIVEN. ORAL CARE WAS GIVEN. PATIENT WAS TURNED. CONI DRAIN WAS DRAINED. 45CC OF PINK DRAINAGE WAS REMOVED. PATIENT IS RESTING COMFORTABLE. NO SIGNS OF DISTRESS. BREATHING IS NON LABORED. CALL LIGHT IS WITHIN REACH. SAFETY MEASURES ARE IN PLACE. WILL CONTINUE TO MONITOR.
[2017-05-08] MEDS: DILTIAZEM HCL 125 MG in D5W 100 ML IV SCH ×3 (05:32→20:57)
--- NOTE | 2017-05-08 05:41 | NUR ---
ROUNDS PATIENT IS IN BED SLEEPING COMFORTABLY. NO SIGNS OF DISTRESS. BREATHING IS NON LABORED. CONI DRAIN WAS DRAINED. 40CC OF PINK DRAINAGE WAS DRAINED. NAVARRO CATHETER WAS DRAINED. CARDIZEM DRIP CONTINUED. BLOOD SUGAR WAS 195. 2 UNITS OF REGULAR INSULIN WAS GIVEN. CALL LIGHT IS WITHIN REACH. SAFETY MEASURES ARE IN PLACE. WILL CONTINUE TO MONITOR.
[2017-05-08 06:45] LABS: EOSINOPHILS # (AUTO) 0.1 K/uL (0.0-0.4); EOSINOPHILS % (AUTO) 0.7 % (0.0-4.0); HEMATOCRIT 26.2 % (36-48); HEMOGLOBIN 8.8 g/dL (12.0-16.0); LYMPHOCYTES # (AUTO) 0.5 K/uL (1.0-5.5); LYMPHOCYTES % (AUTO) 3.1 % (20.5-51.5); MEAN CORPUSCULAR HEMOGLOBIN 31 pg (27-31); MEAN CORPUSCULAR HGB CONC 34 % (32-36); MEAN CORPUSCULAR VOLUME 92 fL (79.0-98.0); MONOCYTES # (AUTO) 0.3 K/uL (0.0-1.0); NEUTROPHILS # (AUTO) 15.1 K/uL (1.8-7.7); NEUTROPHILS % (AUTO) 94.2 % (40.0-70.0); PLATELET COUNT (AUTO) 120 K/uL (130-430); RED BLOOD CELL COUNT(AUTO) 2.84 MIL/uL (4.2-6.2); RED CELL DISTRIBUTION WIDTH 14.3 % (9.0-15.0)
[2017-05-08 06:46] LABS: CALCIUM 8.1 mg/dL (8.4-11.0); CREATININE 1.89 mg/dL (0.55-1.30); PHOSPHORUS 3.9 mg/dL (2.7-4.5)
--- NOTE | 2017-05-08 07:10 | NUR ---
ENDORSEMENT Pt care endorsed to CHIQUIS Ott at bedside using nursing SBAR.
--- NOTE | 2017-05-08 08:00 | NUR ---
AM ASSESSMENT. PT AWAKE, ORAL GTUBE INTACT, ATTEMPTED TO INJECT WITH AIR, PLACEMENT UNDETERMINED, RESIDUAL ASPIRATED 35 ML, YELLOW-BROWNISH DRAINAGE, FEEDING STOPPED, CHARGE NURSE INFORMED, REPOSITIONED IN BED, ORAL HYGIENE RENDERED, WILL CONTINUE TO MONITOR.
[2017-05-08] MEDS: ARIPiprazole 2 MG TAB PO SCH (09:00)
--- NOTE | 2017-05-08 09:10 | NUR ---
. DR LUCIANO HERE, ABG RESULT SEEN, WENT TO EXAMINE PT.
--- NOTE | 2017-05-08 09:25 | NUR ---
VENT. R.T. ON DUTY SWITCHED SIMV TO 4, CONTINUE TO MONITOR.
[2017-05-08] MEDS: PANTOPRAZOLE SODIUM 40 MG/VIAL (PROTONIX) IVP SCH (09:37)
[2017-05-08] MEDS: HYDROmorphone 2 MG/ML VIAL IVP PRN ×2 (09:38→18:38)
[2017-05-08] MEDS: ENOXAPARIN SODIUM 40 MG/0.4 ML SYRINGE SUBCUT SCH (09:38)
--- NOTE | 2017-05-08 09:38 | NUR ---
COMFORT. MEDICATED PT WITH DILAUDID 2 MG IVP FOR ABDOMINAL PAIN, SCALE SHOWN USING HER FINGERS.
[2017-05-08] MEDS: FLUoxetine HCL 10 MG CAPSULE (PROzac) PO SCH (09:57)
[2017-05-08] MEDS: DULoxetine HCL 30 MG CAPSULE.DR (CYMBALTA) PO SCH (09:57)
[2017-05-08] MEDS: LEVOTHYROXINE SODIUM 0.1 MG VIAL IVP SCH (10:00)
--- NOTE | 2017-05-08 10:00 | NUR ---
OGT. CHECKED PLACEMENT OF GTUBE, RESISTANCE OBTAINED WHEN ATTEMPTED TO PUSH DOWN OGT.
[2017-05-08] MEDS ORDERED: GASTROGRAFIN 120 ML ONE (13:42)
[2017-05-08] MEDS: 0.45% NACL 1,000 ML IV SCH (14:16)
--- NOTE | 2017-05-08 15:20 | NUR ---
NURSING. ATTEMPTED TO ADJUST LENGTH OF OGT, UNABLE TO DO, OGT DISCONTINUED. NEW OGT INSERTED, ASSISTED BY CHARGE NURSE, PT RESISTING, TRIED TO PULL OUT HER ETTUBE, SOME BLEEDING IN THE TUBE WHEN OGT WAS PULLED. PT REFUSED TO HAVE IT IN.
[2017-05-08] MEDS: metroNIDAZOLE 500 mg/NS 100 ML IV SCH ×3 (15:50→23:30)
--- NOTE | 2017-05-08 16:00 | NUR ---
. CALLED AND SPOKE WITH DR PINO. INFORMED THAT [place] SUMP FOR FEEDING WAS DIFFICULT TO ADVANCE INTO THE THROAT HENCE UNABLE TO PERFORM GASTROGRAFFIN ADMINISTRATION.
[2017-05-08] MEDS: FAT EMULSIONS 250 ML IV SCH (17:15)
[2017-05-08] MEDS: POTASSIUM ACETATE IV SCH ×10 (17:15)
[2017-05-08] MEDS: SODIUM CHLORIDE IV SCH ×10 (17:15)
[2017-05-08] MEDS: TPN PERIPHERAL IV SCH ×10 (17:15)
[2017-05-08] MEDS: [UNRECOGNIZED DRUG - OTHER] IV SCH ×10 (17:15)
[2017-05-08] MEDS: FLUCONAZOLE 100 mg/ NS 50 ML IV SCH (17:17)
--- NOTE | 2017-05-08 19:30 | NUR ---
TRANSFER OF CARE Received report from AM shift RN, Pt alert and oriented x4. Able to follow commands by nodding her head up and down to answer yes or no questions. No signs of acute distress at this time. PVC'S noted on the monitor. Tolerating mechanical ventilator settings. ETT size 7 at 23cm lipline. IV on right wrist 20g patent running IV fluid no infiltration noted. DENICE PICC patent with blood return. Butcher catheter draining to gravity with clear yellow urine. Dressing in place in the mid abdomen, dressing clean dry and intact. CONI drain on the right abdomen with pinkish drainage noted. Pt in comfortable position, safety precautions identified. Bed in lowest position with HOB elevated. Call light within reach, will continue to monitor Pt.
[2017-05-09] VITALS (28 sets, daily range): BP systolic 107–126; BP diastolic 43–81; PULSE 86–105; RESP 20–38; TEMP 97–98.3; O2SAT 98–100
--- NOTE | 2017-05-09 | NUR ---
NOTES Pt sleeping comfortably, no acute distress at this time. Will continue to monitor.
[2017-05-09] MEDS: INSULIN REGULAR, HUMAN 100 UNITS/ML, 10 ML VIAL (novoLIN R) SUBCUT PRN ×4 (00:18→18:14)
[2017-05-09] MEDS: PIPERACILLIN/TAZO 2.25G/DEX-IS 50 ML IV SCH ×5 (00:51→23:24)
[2017-05-09] MEDS: ALBUTEROL SULFATE 0.083% 2.5 MG/3 ML VIAL.NEB INH SCH ×3 (01:47→19:24)
[2017-05-09] MEDS: IPRATROPIUM BROM 0.5 MG/2.5 ML VIAL.NEB (ATROVENT) INH SCH ×3 (01:47→19:24)
--- NOTE | 2017-05-09 04:00 | NUR ---
NOTE Pt sleeping, no acute distress at this time. Will continue to monitor.
--- NOTE | 2017-05-09 06:00 | NUR ---
BLOOD GLUCOSE MONITORING Pt blood glucose at 170, 2 units insulin given as per protocol.
[2017-05-09] MEDS: DILTIAZEM HCL 125 MG in D5W 100 ML IV SCH ×2 (06:16→15:47)
[2017-05-09] MEDS: metroNIDAZOLE 500 mg/NS 100 ML IV SCH ×3 (06:18→18:41)
[2017-05-09 06:55] LABS: EOSINOPHILS # (AUTO) 0.1 K/uL (0.0-0.4); EOSINOPHILS % (AUTO) 0.8 % (0.0-4.0); HEMATOCRIT 24.8 % (36-48); HEMOGLOBIN 8.3 g/dL (12.0-16.0); LYMPHOCYTES # (AUTO) 0.5 K/uL (1.0-5.5); LYMPHOCYTES % (AUTO) 3.7 % (20.5-51.5); MEAN CORPUSCULAR HEMOGLOBIN 31 pg (27-31); MEAN CORPUSCULAR HGB CONC 33 % (32-36); MEAN CORPUSCULAR VOLUME 93 fL (79.0-98.0); MONOCYTES # (AUTO) 0.6 K/uL (0.0-1.0); MONOCYTES % (AUTO) 4.3 % (1.7-9.3); NEUTROPHILS # (AUTO) 13.2 K/uL (1.8-7.7); NEUTROPHILS % (AUTO) 91.2 % (40.0-70.0); PLATELET COUNT (AUTO) 150 K/uL (130-430); RED BLOOD CELL COUNT(AUTO) 2.68 MIL/uL (4.2-6.2); RED CELL DISTRIBUTION WIDTH 14.7 % (9.0-15.0); WHITE BLOOD COUNT (AUTO) 14.4 K/uL (4.8-10.8)
[2017-05-09 06:58] LABS: CALCIUM 8.4 mg/dL (8.4-11.0); CREATININE 1.45 mg/dL (0.55-1.30); PHOSPHORUS 3.8 mg/dL (2.7-4.5); POTASSIUM 4.1 mmol/L (3.5-5.1)
--- NOTE | 2017-05-09 08:00 | NUR ---
RN OPENING NOTES PATIENT IS A/O AND EVEN THOUGH SHE IS INTUBATED, SHE IS ABLE TO MAKE NEEDS KNOWN BY NODDING YES OR NO AND INDICATING WITH HER FINGERS. VENT SETTINGS CONFIRMED TO BE CORRECT, HER BREATHING IS UNLABORED WITH NO S/S OF DISTRESS. VITALS ARE STABLE. NAVARRO CATHETER IN PLACE AND PATEN, DRAINING TO GRAVITY. ABDOMINAL DRESSING IS DRY AND INTACT, CONI DRAIN IS FUNCTIONING WNL. PT IS AFEBRILE YET COMPLAINING SHE IS HOT. COLD COMPRESS APPLIED TO HER HEAD REQUESTED. HER IS AT BEDSIDE, AND I EDUCATED THE PT AND HER ON UNIT SAFETY.
[2017-05-09] MEDS: LEVOTHYROXINE SODIUM 0.1 MG VIAL IVP SCH (08:42)
[2017-05-09] MEDS: PANTOPRAZOLE SODIUM 40 MG/VIAL (PROTONIX) IVP SCH (08:42)
[2017-05-09] MEDS: ENOXAPARIN SODIUM 40 MG/0.4 ML SYRINGE SUBCUT SCH ×2 (08:43→21:11)
--- NOTE | 2017-05-09 08:50 | NUR ---
DR LUCIANO AT BEDSIDE SHE PLANS TO LOWER THE VENT SETTINGS
[2017-05-09] MEDS: ARIPiprazole 2 MG TAB PO SCH (09:00)
[2017-05-09] MEDS: DULoxetine HCL 30 MG CAPSULE.DR (CYMBALTA) PO SCH (09:00)
[2017-05-09] MEDS: FLUoxetine HCL 10 MG CAPSULE (PROzac) PO SCH ×2 (09:00→14:02)
[2017-05-09] MEDS: 0.45% NACL 1,000 ML IV SCH (09:08)
--- NOTE | 2017-05-09 09:09 | NUR ---
0900 PO MEDS NOT ADMINISTERED DUE TO NPO STATUS MEDS HELD: GLENDY ZAPATA
--- NOTE | 2017-05-09 10:25 | NUR ---
DR. LUCIANO PAGED FOR ORDERS.
--- NOTE | 2017-05-09 10:40 | NUR ---
RT AT BEDSIDE/PT EXTUBATED SO S/S OF DISTRESS, PT PLACED ON 3l O2 THERAPY VIA NASAL CANULA
--- NOTE | 2017-05-09 11:45 | NUR ---
Nutrition F/U Pt seen resting in bed w/ at bedside. Pt was recently extubated this morning. Pt reported that she doesn't have much of an appetite. Pt stated that she normally follows a bland diet at home. Pt denied any food allergies. Pt reported dislike to mushrooms; RD noted in [employer] and notified FNS staff. Pt had a BM this morning per pt report. TPN w/ lipids seen infusing as per MD/pharmacy orders. Pt is no longer receiving OGT feeding. Per RN, pt has been taking in a few ice chips and awaiting MD orders for advancement of diet. Dietitian Recommendations * Recommend continuing current TPN support * Consider advance diet if/when medically appropriate (clear liquid diet) Follow Up High Risk: F/U in 2-3days
[2017-05-09] MEDS ORDERED: DILTIAZEM HCL 30 MG TABLET PO SCH (14:30)
[2017-05-09] MEDS: [UNRECOGNIZED DRUG - OTHER] IV SCH ×10 (17:53)
[2017-05-09] MEDS: SODIUM CHLORIDE IV SCH ×10 (17:53)
[2017-05-09] MEDS: TPN PERIPHERAL IV SCH ×10 (17:53)
[2017-05-09] MEDS: POTASSIUM ACETATE IV SCH ×10 (17:53)
[2017-05-09] MEDS: FAT EMULSIONS 250 ML IV SCH (17:56)
--- NOTE | 2017-05-09 19:30 | NUR ---
TRANSFER OF CARE Received report from AM shift RN, Pt alert and oriented x4. Able to follow commands. No signs of acute respiratory distress at this time post extubation. PVC'S noted on the monitor with cardizem drip running at 15ml/hr. IV on right wrist 20g patent running IV fluid no infiltration noted. DENICE PICC patent with blood return. Butcher catheter draining to gravity with clear yellow urine. Dressing in place in the mid abdomen, dressing clean dry and intact. CONI drain on the right abdomen with cloudy pinkish drainage noted. Pt in comfortable position, safety precautions identified. Bed in lowest position with HOB elevated. Call light within reach, will continue to monitor Pt.
[2017-05-09] MEDS: FLUCONAZOLE 100 mg/ NS 50 ML IV SCH (19:50)
[2017-05-09] MEDS: METOPROLOL TARTRATE 25 MG TABLET PO SCH (21:11)
--- NOTE | 2017-05-09 23:00 | NUR ---
NOTE Pt had one bowel movement, cleaned and repositioned Pt.
[2017-05-10] VITALS (20 sets, daily range): BP systolic 88–122; BP diastolic 23–74; PULSE 87–103; RESP 18–35; TEMP 97.8–98.2; O2SAT 95–100
[2017-05-10] MEDS ORDERED: DILTIAZEM HCL 125 MG/25 ML VIAL IV ONE
--- NOTE | 2017-05-10 | NUR ---
NOTE Pt sleeping, no acute distress at this time. Will continue to monitor Pt.
[2017-05-10] MEDS: DILTIAZEM HCL 125 MG in D5W 100 ML IV SCH ×2 (00:01→09:26)
[2017-05-10] MEDS: metroNIDAZOLE 500 mg/NS 100 ML IV SCH ×3 (00:04→11:07)
[2017-05-10] MEDS: INSULIN REGULAR, HUMAN 100 UNITS/ML, 10 ML VIAL (novoLIN R) SUBCUT PRN ×5 (00:25→22:10)
[2017-05-10] MEDS: ALBUTEROL SULFATE 0.083% 2.5 MG/3 ML VIAL.NEB INH SCH ×4 (01:00→20:28)
[2017-05-10] MEDS: LORazepam 2 MG/ML VIAL IVP PRN (02:41)
--- NOTE | 2017-05-10 02:41 | NUR ---
ATIVAN Pt is confused and agitated. Gave ativan as per MD order.
[2017-05-10] MEDS: 0.45% NACL 1,000 ML IV SCH ×2 (04:09→22:13)
[2017-05-10] MEDS: PIPERACILLIN/TAZO 2.25G/DEX-IS 50 ML IV SCH ×3 (05:03→18:18)
[2017-05-10 07:07] LABS: ALBUMIN 1.7 g/dL (3.4-4.8); CALCIUM 8.1 mg/dL (8.4-11.0); CREATININE 1.25 mg/dL (0.55-1.30); POTASSIUM 4.1 mmol/L (3.5-5.1); TOTAL BILIRUBIN 0.5 mg/dL (0.0-1.0)
--- NOTE | 2017-05-10 07:15 | NUR ---
ENDORSEMENT Gave report to SUSIE hawkins RN.
--- NOTE | 2017-05-10 07:40 | NUR ---
AM Rounds Patient resting in bed, awake, alert and oriented x2, reoriented to time and event, patient verbalized understanding, assessment complete, abdominal dressings in place (surgical), clean, dry and intact, CONI drain in place with small amount of light drainage at this time, Butcher Catheter in place draining to gravity, PICC line in place, patent and infusing well, Peripheral IV site in place, patent and infusing well, educated the patient on plan of care, patient verbalized understanding at this time, bed in lowest position, three side rails up, fall and aspiration precautions in place, will continue to monitor.
[2017-05-10] MEDS: IPRATROPIUM BROM 0.5 MG/2.5 ML VIAL.NEB (ATROVENT) INH SCH ×3 (07:50→20:28)
[2017-05-10 08:02] LABS: HEMATOCRIT 24.9 % (36-48); HEMOGLOBIN 8.3 g/dL (12.0-16.0); MEAN CORPUSCULAR HEMOGLOBIN 31 pg (27-31); MEAN CORPUSCULAR HGB CONC 33 % (32-36); MEAN CORPUSCULAR VOLUME 93 fL (79.0-98.0); PLATELET COUNT (AUTO) 171 K/uL (130-430); RED BLOOD CELL COUNT(AUTO) 2.67 MIL/uL (4.2-6.2); RED CELL DISTRIBUTION WIDTH 14.5 % (9.0-15.0); WHITE BLOOD COUNT (AUTO) 24.8 K/uL (4.8-10.8)
[2017-05-10] MEDS: FLUoxetine HCL 10 MG CAPSULE (PROzac) PO SCH (08:13)
[2017-05-10] MEDS: ARIPiprazole 2 MG TAB PO SCH (08:14)
[2017-05-10] MEDS: PANTOPRAZOLE SODIUM 40 MG/VIAL (PROTONIX) IVP SCH (08:14)
[2017-05-10] MEDS: METOPROLOL TARTRATE 25 MG TABLET PO SCH ×2 (08:14→21:54)
[2017-05-10] MEDS: ENOXAPARIN SODIUM 40 MG/0.4 ML SYRINGE SUBCUT SCH (08:15)
[2017-05-10] MEDS: LEVOTHYROXINE SODIUM 0.1 MG VIAL IVP SCH (08:15)
[2017-05-10] MEDS: DULoxetine HCL 30 MG CAPSULE.DR (CYMBALTA) PO SCH (08:16)
--- NOTE | 2017-05-10 08:16 | NUR ---
Dr. Phelps rounds Informed that patient had two bowel movements last night, CONI drainage was 50ml, and incision dressings are clean and dry, Dr. Phelps ordered clear liquids for the diet with Boost concurrent with TPN, will follow up with any new orders.
--- NOTE | 2017-05-10 08:20 | NUR ---
Medications/Family Educated the patient on medications and potential side effects, patient verbalized understanding and tolerated PO medications well at this time, IV sites are patent and infusing well, family is at bedside, plan of care discussed, bed in lowest position, three side rails up, fall and aspiration precautions in place.
--- NOTE | 2017-05-10 09:10 | NUR ---
Dr. Peraza rounds Informed of new onset confusion, but as the patient is waking up more there is less confusion. Also informed of high WBC count, orders to follow, will follow up with any new orders.
[2017-05-10 09:18] LABS: BAND % (MANUAL) 5 % (0-6); BASOPHILS % (MANUAL) 0 % (0-2); EOSINOPHILS % (MANUAL) 0 % (0-7); LYMPHOCYTES % (MANUAL) 3 % (20-46); MONOCYTES % (MANUAL) 3 % (0-11)
--- NOTE | 2017-05-10 11:19 | NUR ---
DC PLANNING: JLUIS DELGADO CM @ [facility] CALLED, UPDATED HER REGARDING PT'S CURRENT CONDITION, THAT PT WAS EXTUBATED YESTERDAY ON 2L/MIN VIA NC AND ON IV CARDIZEM DRIP. SHE IS REQUESTING THE ATTENDING MD IF PT IS STABLE TO BE TRANSFERRED TO A CONTRACTED HOSPITAL W/C IS [facility] TODAY. NOTIFIED DR. DIXON, HE SAID DR. SMITH IS COVERING TODAY. WAITING FOR DR. SMITH TO EVALUATE THE PT. Addendum: 05/10/17 at 1333 by Rebecca Luu RN YESSENIA REED RN FROM ICU CALLED AND INFORMED BRAIN THAT DR. SMITH CLEARED THE PT TO BE TRANSFERRED TO A CONTRACTED HOSPITAL. CALLED AND INFORMED JLUIS DELGADO CM/ [facility], SHE WILL ARRANGE THE TRANSFER AND THEIR HOSPITALIST WILL CALL DR. SMITH FOR A PEER TO PEER. Addendum: 05/10/17 at 1542 by Rebecca Luu RN JLUIS DELGADO/CM CALLED AND HELD THE TRANSFER TO [facility] TODAY BECAUSE ACCORDING TO HER THEIR DOCTOR SPOKE TO DR. SMITH , ACCDG TO THEIR MD DR. SMITH SAID "THAT PT 'S HEART RATE IS NOT YET STABLE, STILL ON CARDIZEM DRIP AND HE HAS NOT YET SEEN THE PATIENT TODAY." JLUIS DELGADO WILL JUST CALL THE CM TOMORROW FOR UPDATE. PACKET W/ CD IN ICU NURSE'S STATION.
[2017-05-10] MEDS: ONDANSETRON HCL 4 MG/2 ML VIAL IVP PRN (12:00)
--- NOTE | 2017-05-10 12:10 | NUR ---
TRANSFER TO [facility] SPOKE TO DR SMITH AND INFORMED HIM OF CM REQUEST TO TRANSFER INTO [facility]. INFORMED HIM OF CARDIOLOGY CLEARANCE TO TRANSFER. INFORMED HIM OF CARDIZEM DRIP TITRATION DOWN, PO AMIODARONE, AND MONITOR SR RATE 90'S. DR SMITH LEFT ORDERS FOR TRANSFER TO [facility].
[2017-05-10] MEDS ORDERED: COMMUNICATION ORDER XX ONE (12:15)
--- NOTE | 2017-05-10 12:15 | NUR ---
Dr. Hernandez/CHEMICAL WEIGHER Stephan rounds Recommend to titrate Cardizem drip, will start patient on PO Amioderone, ok to transfer to other facility, will follow up with new orders.
[2017-05-10] MEDS: AMIODARONE HCL 200 MG TABLET PO SCH ×2 (13:00→21:55)
[2017-05-10] MEDS ORDERED: AMIODARONE HCL 200 MG TABLET PO ONE (13:45)
--- NOTE | 2017-05-10 13:53 | NUR ---
Cardizem Drip Titrated down to 5 at this time, patient is tolerating well, vital signs stable, PO Amioderone given at this time.
--- NOTE | 2017-05-10 15:40 | NUR ---
Cardizem Drip Stopped at this time, vital signs stable, heart rhythm stable in Sinus Rhythm, will continue to monitor.
[2017-05-10] MEDS: FAT EMULSIONS 250 ML IV SCH (17:05)
[2017-05-10] MEDS: FLUCONAZOLE 100 mg/ NS 50 ML IV SCH (17:05)
[2017-05-10] MEDS: TPN PERIPHERAL IV SCH ×10 (18:01)
[2017-05-10] MEDS: SODIUM CHLORIDE IV SCH ×10 (18:01)
[2017-05-10] MEDS: [UNRECOGNIZED DRUG - OTHER] IV SCH ×10 (18:01)
[2017-05-10] MEDS: POTASSIUM ACETATE IV SCH ×10 (18:01)
--- NOTE | 2017-05-10 19:00 | NUR ---
Patient transferred To telemetry unit, stable condition, will give report to NOC shift nurse.
--- NOTE | 2017-05-10 19:41 | NUR ---
PM rounding and assessment Patient awake, alert, oriented x4. Denies nausea and vomiting, tolerating clear liquid. Surgical incision noted dressing clean and dry. Patient resting in bed comfortably with heels offloading on pillow and supportive pillows elevating upper extremities. Patient with family member at bedside for support. patient with Iv fluids and tpn and lipids running at this time, no complications to sites. Patient noted with bruises to hands and upper extremities, per patient from blood draws. Patient with smith catheter in place, draining clear yellow urine with stat lock in place. Bed alarm on, and bed in lowest position.
[2017-05-10] MEDS ORDERED: ENOXAPARIN SODIUM 40 MG/0.4 ML SYRINGE SUBCUT SCH (21:00)
--- NOTE | 2017-05-10 21:00 | NUR ---
Rounds Assisted by RAMP AGENT to turn and reposition patient. HOB elevated and pillows to extremities to elevate provided, heels offloading on pillow. Patient turned and changed linens and applied zgaurd to buttock. Hygiene care to perineum and smith catheter provided. Patient denies any cardiac or respiratory distress. Noted patient heart rate ST with occasional one PAC and one PVC noted. Patient denies chest pain. MD already aware of diagnosis. Will continue to monitor for changes.
[2017-05-10] MEDS: ENOXAPARIN SODIUM 80 MG/0.8 ML SYRINGE SUBCUT SCH (21:54)
--- NOTE | 2017-05-11 00:17 | NUR ---
Rounds Patient resting in bed at this time. Appears more relaxed with family at bedside. Patient denies chest pain or sob. Bed alarm on.
[2017-05-11] MEDS: PIPERACILLIN/TAZO 2.25G/DEX-IS 50 ML IV SCH ×4 (00:45→17:15)
--- NOTE | 2017-05-11 00:47 | NUR ---
MEDICATION Administered antibiotic per MD order. No complications. IV infusing and patent.
[2017-05-11 00:50] VITALS: BP 123/72; PULSE 96; RESP 18; TEMP 97.3; O2SAT 95
[2017-05-11] MEDS: IPRATROPIUM BROM 0.5 MG/2.5 ML VIAL.NEB (ATROVENT) INH SCH ×4 (01:19→19:59)
[2017-05-11] MEDS: ALBUTEROL SULFATE 0.083% 2.5 MG/3 ML VIAL.NEB INH SCH ×4 (01:19→19:59)
--- NOTE | 2017-05-11 02:10 | NUR ---
Rounds Patient resting in bed, at bedside resting in chair. Patient denies chest pain or sob. Patient turned and repositioned at this time, hygiene care provided. Patient heart rate still Sinus tachycardia at rate 105 bpm, MD already aware. Medications given as ordered.
[2017-05-11] MEDS: METOPROLOL TARTRATE 5 MG/5 ML VIAL IVP PRN (02:36)
--- NOTE | 2017-05-11 02:43 | NUR ---
Medications Patient heart rate ST sustaining in 115-120's, Patient on 2liters oxygen spo2 95%, blood pressure 117/78, denies chest pain or sob. Pushed per MD order Metoprolol 2.5 mg ivp with charge nurse near bedside monitoring vitals signs. will continue to monitor for improvement and changes in heart rate.
--- NOTE | 2017-05-11 03:45 | NUR ---
Heart rate Patient heart rate converts from SNR- ST 110's to A.fib highest seen 120's. Gave medication per MD order. Page MD Sullivan for possible new orders. Patient denies chest pain or sob at this time. Vital signs bp 121/73, heart rate 128, 96% 2 liters, RR 18, 98.0 F. Awaiting call back.
--- NOTE | 2017-05-11 03:53 | NUR ---
paged Joni Lowe, (Dr. Hernandez is infection prevention practitioner) Spoke with flexo press operator 22
--- NOTE | 2017-05-11 04:19 | NUR ---
MD MD Hernandez spoken to. Per give Amiodarone per protocol. Charge nurse and roundhouse supervisor made aware.
--- NOTE | 2017-05-11 04:25 | NUR ---
paged paged for Dr Hernandez, dialed . s/w Meter Reader 22.
[2017-05-11] MEDS ORDERED: D5W IV ONE (04:45)
[2017-05-11] MEDS ORDERED: AMIODARONE HCL IV ONE (04:45)
[2017-05-11] MEDS ORDERED: AMIODARONE HCL 900 MG in D5W 482 ML IV PRN (04:45)
[2017-05-11] MEDS ORDERED: AMIODARONE HCL 150 MG in D5W 100 ML IV ONE (04:45)
[2017-05-11 04:47] VITALS: BP 118/71; PULSE 109; RESP 20; TEMP 97.7; O2SAT 92
--- NOTE | 2017-05-11 04:48 | NUR ---
Medication Clarified with MD Hernandez of medication ordered per protocol. Per MD give 150 mg ivp over 10 minutes of amiodarone, after 1 mg/min over 6 hours, then 0.5 mg/min for 18 hours. Patient read back and verified. Pharmacy working on medication.
[2017-05-11] MEDS ORDERED: AMIODARONE HCL 900 MG/18 ML VIAL IV ONE (05:28)
[2017-05-11] MEDS ORDERED: AMIODARONE HCL 150 MG/3ML VIAL ONE (05:28)
[2017-05-11] MEDS: INSULIN REGULAR, HUMAN 100 UNITS/ML, 10 ML VIAL (novoLIN R) SUBCUT PRN ×2 (05:54→17:05)
--- NOTE | 2017-05-11 05:57 | NUR ---
Blood sugar Blood sugar checked 216, coverage given as ordered.
[2017-05-11] MEDS: AMIODARONE HCL 900 MG in D5W 482 ML IV SCH ×2 (06:16→14:21)
--- NOTE | 2017-05-11 06:24 | NUR ---
Closing Patient awake, alert, oriented with forgetfulness at times, reorientation provided as needed. Patient with family at bedside. Denies chest pain or sob. Patient given bolus Amiodarone medication per MD order. Charge nurse doubled checked medication administration. Patient now started on maintenance fluids running per MD order at 33.3 ml/hr for 6 hours and will endorse to day shift to change rate at 1230 to 16.7 ml/hr per MD order. bed alarm on. vital signs last checked at this time 116/74, RR 18, spo2 93% on 2 liters, heart rate 108.
[2017-05-11 07:32] LABS: BASOPHILS % (AUTO) 0.1 % (0.0-2.0); EOSINOPHILS % (AUTO) 0.3 % (0.0-4.0); HEMOGLOBIN 7.1 g/dL (12.0-16.0); LYMPHOCYTES # (AUTO) 0.6 K/uL (1.0-5.5); LYMPHOCYTES % (AUTO) 3.6 % (20.5-51.5); MEAN CORPUSCULAR HEMOGLOBIN 30 pg (27-31); MEAN CORPUSCULAR HGB CONC 32 % (32-36); MEAN CORPUSCULAR VOLUME 93 fL (79.0-98.0); MONOCYTES # (AUTO) 0.8 K/uL (0.0-1.0); MONOCYTES % (AUTO) 4.9 % (1.7-9.3); NEUTROPHILS # (AUTO) 14.8 K/uL (1.8-7.7); PLATELET COUNT (AUTO) 202 K/uL (130-430); RED BLOOD CELL COUNT(AUTO) 2.35 MIL/uL (4.2-6.2); RED CELL DISTRIBUTION WIDTH 14.4 % (9.0-15.0); WHITE BLOOD COUNT (AUTO) 16.2 K/uL (4.8-10.8)
[2017-05-11 07:52] LABS: HEMATOCRIT 21.8 % (36-48)
[2017-05-11 07:53] LABS: ALBUMIN 1.6 g/dL (3.4-4.8); CALCIUM 7.9 mg/dL (8.4-11.0); CREATININE 1.06 mg/dL (0.55-1.30); PHOSPHORUS 3.4 mg/dL (2.7-4.5); POTASSIUM 3.8 mmol/L (3.5-5.1); TOTAL BILIRUBIN 0.3 mg/dL (0.0-1.0)
--- NOTE | 2017-05-11 07:55 | NUR ---
LAD RESULT: LAB CALLED REGARDING HCT 21.8.
--- NOTE | 2017-05-11 08:00 | NUR ---
AM SHIFT NOTE: Received Patient awake, alert x3, confused sometimes, c/o SBO, Surgery on 05/08/17,incision site dressing dry and intact with CONI in place, IV at left upper arm with Picc line in place, TPN at 42ml/hr, and lipid at 10ml/hr. C/O A-FIB, HR at 120-140s, with amiodarone at 33.3 ml/hr, clear liquid diet, F/c in place with yellow color noted, skin in tact, bed at low position, call light within reach.
[2017-05-11] MEDS: PANTOPRAZOLE SODIUM 40 MG/VIAL (PROTONIX) IVP SCH (09:00)
[2017-05-11] MEDS: ENOXAPARIN SODIUM 80 MG/0.8 ML SYRINGE SUBCUT SCH (09:00)
[2017-05-11 09:08] LABS: NEUTROPHILS % (AUTO) 91.1 % (40.0-70.0)
--- NOTE | 2017-05-11 09:30 | NUR ---
BRAIN DC PLANNING: TO [facility] CM SPOKE WITH Pt AND HER /ANABELLE THIS A.M. AT THEIR REQUEST. Pt STATED SHE WANTED TO GO HOME; AND, REALLY DID NOT WANT TO TRANSFER TO [facility] AT THIS TIME SINCE SHE ALREADY HAD THE SURGERY HER AT [facility] FOR SMALL BOWEL OBSTRUCTION. CM INFORMED Pt AND THAT SHE WOULD LOOK INTO TRANSFER SITUATION AND GET BACK TO THEM. CM PROVIDED CM CONTACT NUMBER FOR . CM CALLED BACK TO AND INFORMED THAT THE REASON FOR THE TRANSFER RECOMMENDATION TO [facility] WAS THE INSURANCE COMPANY WANTED HER TO BE IN A CONTRACTED HOSPITAL. DUE TO [employer] BACK ON CARDIZEM DRIP FOR TACHYCARDIA, AND TIME CONTRAINTS, THIS CM NOTIFIED THAT CM WAS UNABLE TO CALL FOR AVAILABLE BED AT [facility] OR SPEAK WITH MD TODAY ABOUT POSSIBLE TRANSFER; AND, THAT CM WOULD LEAVE INFORMATION FOR WEEKDAY CM TO FOLLOW-UP WITH [employer] AND [facility].
--- NOTE | 2017-05-11 09:40 | NUR ---
ROUNDING: ROUTINE MEDS GIVEN, PT TOLERATED WELL, AT BED SIDE.
[2017-05-11] MEDS: FLUoxetine HCL 10 MG CAPSULE (PROzac) PO SCH (09:49)
[2017-05-11] MEDS: DULoxetine HCL 30 MG CAPSULE.DR (CYMBALTA) PO SCH (09:50)
[2017-05-11] MEDS: LEVOTHYROXINE SODIUM 0.1 MG VIAL IVP SCH (09:51)
[2017-05-11] MEDS: METOPROLOL TARTRATE 25 MG TABLET PO SCH ×2 (09:51→21:29)
--- NOTE | 2017-05-11 09:54 | NUR ---
ROUNDING; SEEN BY , ORDERED FOR BLOOD TRANSFUSION TODAY DUE TO Hb: 7.1.
[2017-05-11] MEDS: ARIPiprazole 2 MG TAB PO SCH (10:06)
--- NOTE | 2017-05-11 10:30 | NUR ---
MD ROUNDING: SEEN BY DR. LUCIANO, ORDER CARRIED OUT.
[2017-05-11 10:54] LABS: BASOPHILS % (AUTO) 0.1 % (0.0-2.0); EOSINOPHILS # (AUTO) 0.2 K/uL (0.0-0.4); EOSINOPHILS % (AUTO) 1.1 % (0.0-4.0); HEMOGLOBIN 7.1 g/dL (12.0-16.0); LYMPHOCYTES # (AUTO) 0.7 K/uL (1.0-5.5); LYMPHOCYTES % (AUTO) 4.5 % (20.5-51.5); MEAN CORPUSCULAR HEMOGLOBIN 31 pg (27-31); MEAN CORPUSCULAR HGB CONC 34 % (32-36); MEAN CORPUSCULAR VOLUME 93 fL (79.0-98.0); MONOCYTES # (AUTO) 0.9 K/uL (0.0-1.0); MONOCYTES % (AUTO) 5.8 % (1.7-9.3); NEUTROPHILS # (AUTO) 13.3 K/uL (1.8-7.7); NEUTROPHILS % (AUTO) 88.5 % (40.0-70.0); PLATELET COUNT (AUTO) 204 K/uL (130-430); RED BLOOD CELL COUNT(AUTO) 2.28 MIL/uL (4.2-6.2); RED CELL DISTRIBUTION WIDTH 14.9 % (9.0-15.0); WHITE BLOOD COUNT (AUTO) 15.1 K/uL (4.8-10.8)
[2017-05-11 11:12] LABS: HEMATOCRIT 21.2 % (36-48)
[2017-05-11 12:31] VITALS: BP 124/68; PULSE 111; RESP 18; TEMP 98.7; O2SAT 96
--- NOTE | 2017-05-11 12:40 | NUR ---
MD ROUNDING: SEEN BY DR. ROB /CARDIAC, ORDER CARRIED OUT.
--- NOTE | 2017-05-11 14:15 | NUR ---
AMIODARONE DOSE CHANGED: AMIODARONE DOSE WAS ADJUSTED FROM 33.3 ML(1MG/HR) TO 16.7 ML( 0.5 MG/HR) ORDERED.
--- NOTE | 2017-05-11 14:45 | NUR ---
BT INITIATION: Consent signed per PATIENT agreeing to administration of blood. Blood has been type and crossmatched. Blood sent from blood bank. Information on unit of blood checked against patient wristband at bedside by two nurses. All information matches. Patient or responsible libertarian informed of potential complications associated with blood transfusion. Informed of possible transfusion reaction symptoms. Aware of need to notify nurse at once of itching, shortness of breath, flushing, feeling of impending doom, or other symptoms not previously present. Vital signs taken within 5 minutes prior to initiation of transfusion. RN will remain with patient for first 15 minutes of transfusion at which time vital signs will be re-assessed.
--- NOTE | 2017-05-11 14:45 | NUR ---
BT INITIATION: Consent signed per agreeing to administration of blood. Blood has been type and crossmatched. Blood sent from blood bank. Information on unit of blood checked against patient wristband at bedside by two nurses. All information matches. Patient or responsible libertarian informed of potential complications associated with blood transfusion. Informed of possible transfusion reaction symptoms. Aware of need to notify nurse at once of itching, shortness of breath, flushing, feeling of impending doom, or other symptoms not previously present. Vital signs taken within 5 minutes prior to initiation of transfusion. CHIQUIS/Arjun and Damaris Reece/RN, rn/Luis/RN will remain with patient for first 15 minutes of transfusion at which time vital signs will be re-assessed. Addendum: 05/11/17 at 1957 by Kenia Reece RN DUPLICATED.
--- NOTE | 2017-05-11 15:02 | NUR ---
PATIENT DISPLAYS NO SIGNS OF DISTRESS 15 MINUTES INTO BLOOD TRANSFUSION. V/S STABLE. WILL CONTINUE TO MONITOR.
[2017-05-11 16:20] VITALS: BP 137/69; PULSE 103; RESP 20; TEMP 97.5; O2SAT 96
[2017-05-11] MEDS: FAT EMULSIONS 250 ML IV SCH (17:08)
[2017-05-11] MEDS: TPN PERIPHERAL IV SCH ×10 (17:08)
[2017-05-11] MEDS: SODIUM CHLORIDE IV SCH ×10 (17:08)
[2017-05-11] MEDS: [UNRECOGNIZED DRUG - OTHER] IV SCH ×10 (17:08)
[2017-05-11] MEDS: POTASSIUM ACETATE IV SCH ×10 (17:08)
[2017-05-11] MEDS: FLUCONAZOLE 100 mg/ NS 50 ML IV SCH (17:15)
--- NOTE | 2017-05-11 17:15 | NUR ---
End of transfusion: Blood transfusion done, pt tolerated well.
--- NOTE | 2017-05-11 18:10 | NUR ---
ROUNDING: TPN AND LIPID TUBING WERE CHANGED, ROUTINE MEDS GIVEN.
--- NOTE | 2017-05-11 19:20 | NUR ---
Closing: Endorsed to room worker RN/ Joselyn for continue care.
[2017-05-11 20:00] VITALS: BP 114/67; PULSE 96; RESP 20; TEMP 97.8; O2SAT 98
--- NOTE | 2017-05-11 20:00 | NUR ---
Initial Notes Pt was received lying in bed sleeping, but easily arousable. Pt is oriented x3. No c/o pain or discomfort. No acute distress noted. Pt is afebrile and O2 sat is 98% on O2 at 2L/min per NC. Speech is clear and pt is able to make her needs known. TPN and Lipids are infusing well via DENICE PICC at 42ml/hr and 10ml/hr, respectively. IVF of 1/2NS is infusing well via DENICE PICC at 30ml/hr. PICC dressing is dry and intact. Amiodarone drip is infusing well in Rt wrist at 16.7ml/hr without any signs of infiltration at the IV site. harbor tug captain is showing SR with HR in the 90's. Midline abdominal dressing is dry and intact with CONI drain to bulb suction noted with small amount of serosanguineous drainage. Abdominal sounds present on all four abdominal quadrants. Butcher Cath to gravity drainage noted with clear yellowish urine. Fall and safety precautions are in place. Pt was instructed to call for assistance as needed and pt verbalized understanding. Call light is with pt and bed alarm is on. Three side rails are up and bed is in the lowest and locked positions. Will continue to monitor pt.
--- NOTE | 2017-05-11 22:05 | NUR ---
Blood Transfusion Initiation Consent was signed by pt per policy agreeing to administration of blood. Blood has been typed and crossmatched. Blood was collected from Blood Bank. Information on unit of blood was checked against pt's wristband at bedside by two nurses. All information matches. Patient was informed of potential complications associated with blood transfusion. Pt was informed of possible transfusion reaction symptoms. Pt is aware of need to notify nurse at once of itching, shortness of breath, flushing, feeling of impending doom, or other symptoms not previously present. Vital signs were taken within 5 minutes prior to initiation of blood transfusion. RN will remain with pt for first 15 minutes of transfusion at which time vital signs will be re-assessed.
--- NOTE | 2017-05-11 22:20 | NUR ---
Blood Transfusion Reassessment Blood transfusion is in progress and no transfusion reaction noted. VSS. Call light is with pt and bed alarm is on. Will continue to monitor pt closely.
--- NOTE | 2017-05-11 23:43 | NUR ---
Rounds Pt is resting quietly in bed. Blood transfusion is in progress and no transfusion reaction noted. TPN, Lipids and Amiodarone drip are infusing well. Call light is with pt and bed alarm is on.
[2017-05-12] VITALS (7 sets, daily range): BP systolic 122–133; BP diastolic 72–83; PULSE 71–98; RESP 18–28; TEMP 97.1–99.9; O2SAT 95–99
--- NOTE | 2017-05-12 00:33 | NUR ---
Blood Sugar Accucheck 194 and 2 units Regular insulin given SQ.
[2017-05-12] MEDS: INSULIN REGULAR, HUMAN 100 UNITS/ML, 10 ML VIAL (novoLIN R) SUBCUT PRN ×4 (00:35→17:46)
[2017-05-12] MEDS: ALBUTEROL SULFATE 0.083% 2.5 MG/3 ML VIAL.NEB INH SCH ×4 (00:55→20:05)
[2017-05-12] MEDS: IPRATROPIUM BROM 0.5 MG/2.5 ML VIAL.NEB (ATROVENT) INH SCH ×4 (00:56→20:06)
--- NOTE | 2017-05-12 01:20 | NUR ---
Blood Transfusion Completion Transfusion of PRBC completed and no transfusion reaction noted. IVF of 1/2NS will be resumed at 30ml/hr. Will also administer 0000 IV Zosyn.
[2017-05-12] MEDS: 0.45% NACL 1,000 ML IV SCH (01:24)
[2017-05-12] MEDS: PIPERACILLIN/TAZO 2.25G/DEX-IS 50 ML IV SCH ×2 (01:29→05:54)
--- NOTE | 2017-05-12 02:30 | NUR ---
Rounds Pt is sleeping comfortably in bed. Call light is with pt and bed alarm is on. All IV infusions are infusing well. Will continue to monitor pt.
--- NOTE | 2017-05-12 04:30 | NUR ---
Rounds Pt is sleeping without any distress noted. Call light is with pt and bed alarm is on.
[2017-05-12] MEDS ORDERED: AMIODARONE HCL 900 MG/18 ML VIAL IV ONE (05:03)
[2017-05-12] MEDS: AMIODARONE HCL 900 MG in D5W 482 ML IV SCH (06:00)
[2017-05-12 06:39] LABS: ALBUMIN 1.5 g/dL (3.4-4.8); CREATININE 0.97 mg/dL (0.55-1.30); TOTAL BILIRUBIN 0.3 mg/dL (0.0-1.0)
--- NOTE | 2017-05-12 06:53 | NUR ---
Closing Note Pt is awake and resting comfortably in bed. No c/o pain or discomfort at this time. Accucheck 176 this AM and 2 units Regular Insulin given SQ. All pt's needs were attended to. No fall or injury noted this shift. Will endorse to day shift nurse.
[2017-05-12 06:57] LABS: EOSINOPHILS # (AUTO) 0.1 K/uL (0.0-0.4); EOSINOPHILS % (AUTO) 0.6 % (0.0-4.0); HEMATOCRIT 25.5 % (36-48); HEMOGLOBIN 8.7 g/dL (12.0-16.0); LYMPHOCYTES # (AUTO) 0.5 K/uL (1.0-5.5); LYMPHOCYTES % (AUTO) 4.3 % (20.5-51.5); MEAN CORPUSCULAR HEMOGLOBIN 31 pg (27-31); MEAN CORPUSCULAR HGB CONC 34 % (32-36); MEAN CORPUSCULAR VOLUME 92 fL (79.0-98.0); MONOCYTES # (AUTO) 0.8 K/uL (0.0-1.0); MONOCYTES % (AUTO) 6.4 % (1.7-9.3); NEUTROPHILS # (AUTO) 11.4 K/uL (1.8-7.7); NEUTROPHILS % (AUTO) 88.7 % (40.0-70.0); PLATELET COUNT (AUTO) 192 K/uL (130-430); RED BLOOD CELL COUNT(AUTO) 2.78 MIL/uL (4.2-6.2); RED CELL DISTRIBUTION WIDTH 14.3 % (9.0-15.0)
[2017-05-12 07:04] LABS: WHITE BLOOD COUNT (AUTO) 12.8 K/uL (4.8-10.8)
--- NOTE | 2017-05-12 08:19 | NUR ---
Opening Note Pt ALOC x3 with family at bedside. Pt has no s/s of SOB and no c/o pain. IV in rwrist patent and infusing, DENICE PICC infusing, m idline abdominal dressing clean dry and intact with son drain connected and patent, SCDs applied. Safety and fall precautions in place and reviewed with pt and family, bed in lowest position, bed alarm on and call light within reach.
[2017-05-12] MEDS: ARIPiprazole 2 MG TAB PO SCH (09:12)
[2017-05-12] MEDS: DULoxetine HCL 30 MG CAPSULE.DR (CYMBALTA) PO SCH (09:12)
[2017-05-12] MEDS: METOPROLOL TARTRATE 25 MG TABLET PO SCH ×2 (09:13→20:33)
[2017-05-12] MEDS: FLUoxetine HCL 10 MG CAPSULE (PROzac) PO SCH (09:13)
[2017-05-12] MEDS: PANTOPRAZOLE SODIUM 40 MG/VIAL (PROTONIX) IVP SCH (09:14)
[2017-05-12] MEDS: LEVOTHYROXINE SODIUM 0.1 MG VIAL IVP SCH (09:14)
[2017-05-12] MEDS ORDERED: FUROSEMIDE 20 MG/2 ML VIAL IVP ONE (10:15)
--- NOTE | 2017-05-12 10:15 | NUR ---
Rounding Note Pt resting with family at bedside. No s/s of SOB or c/o pain. Safety and fall precautions in place and discussed call light with pt and and they agreed to call for any assistance. Bed in lowest position, bed alarm on and call light within reach.
--- NOTE | 2017-05-12 11:23 | NUR ---
Rounding Note Pt working with PT. has questions about possible transfer to in network provider as discussed with physician this morning. Will follow up with preceptor to get information.
[2017-05-12] MEDS: metroNIDAZOLE 500 mg/NS 100 ML IV SCH ×2 (11:51→20:35)
--- NOTE | 2017-05-12 12:50 | NUR ---
[facility] workshop manager, Shannon Eckert, called to get patient information and inquiring about a discharge order. Updates given and informed that discharge order was received from Dr. Gomez this morning, Shannon Eckert asking for [facility] Case Management to call, will inform [facility] Case Management. Shannon Pugh [phone].
--- NOTE | 2017-05-12 13:37 | NUR ---
Rounding Note Pt resting with no s/s of distress or sob, no c/o pain. Bed in lowest position, with call light within reach and bed alarm on.
--- NOTE | 2017-05-12 13:58 | NUR ---
DC Planning: S/w Naldo from [facility] for transferring pt. to ins network. Naldo stated she already knew about pt.'s status and POC. She plans to transfer pt. today after MD to MD report. Dr. Gomez contact number provided. Nazia will call be back with bed assignment. LM pt's spouse, Juwan # [phone] of the above info. Also, provided my call back number if have any questions. Addendum: 05/12/17 at 1651 by Brennon Chandra RN >> Per CHIQUIS Hoang , she will notify Juwan about the transfer to [facility]. >> Requesting from Nazia DELGADO for dr. Gomez to speak with dr. Navarro # [phone] to give his reeval for transfer after he spoke with dr. navarro earlier. Dr. Gomez stated pt. is not stable for transfer today. CHIQUIS Hoang is to update Nazia Delgado " not stable reasons/ pt's status".
--- NOTE | 2017-05-12 15:00 | NUR ---
Dr. Phelps rounds Assessing the patient at the bedside, removed CONI drain at this time, patient tolerated well at this time, removed surgical dressing, sutures in place, Dr. Phelps informed the patient that the sutures will dissolve, patient and verbalized understanding.
--- NOTE | 2017-05-12 15:23 | NUR ---
Incentive Spirometer Patient and at bedside, educated on why, how to use, how often to use the incentive spirometer, educated to use at least 10 times per hour while awake and to stop if she feels dizzy or lightheaded, patient verbalized understanding. Educated the patient to breathe in for as long as she can, patient verbalized understanding and gave return demonstration up to 1000ml at this time.
--- NOTE | 2017-05-12 15:27 | NUR ---
S/W family and patient regarding [facility] transfer, informed that nurse has not received any further information regarding transfer at this time, and the Enterprise Security Architect are aware of the discharge order. Jeet, would like to be informed of any changes, cell.
--- NOTE | 2017-05-12 16:13 | NUR ---
Call from [facility] Shannon Eckert requesting to inform Dr. Gomez to return [facility] physician phone call (Dr. Mendez [phone]) as soon as possible, informed [facility] Pump Erector Helper to inform Dr. Gomez regarding this, will follow up as needed. Addendum: 05/12/17 at 1645 by Viktor Soto RN Spoke with Shannon Eckert, she stated that Dr. Gomez stated the patient is not stable for transfer today, will follow up tomorrow 05/13/17 for transfer.
[2017-05-12] MEDS: FAT EMULSIONS 250 ML IV SCH (17:21)
[2017-05-12] MEDS: FLUCONAZOLE 100 mg/ NS 50 ML IV SCH (17:37)
--- NOTE | 2017-05-12 17:48 | NUR ---
Rounding note pt sitting with family and eating dinner assisted by family. TPN, lipids begun IV and PICC lines patent and infusing. Pt has no s/s of SOB and no c/o pain. Family content with possible transfer tomorrow to in [facility]. Safety and fall precautions in place with bed in lowest postion, bed alarm on and call light within reach. Pt and family agree to call for any needed assistance
[2017-05-12] MEDS ORDERED: [UNRECOGNIZED DRUG - OTHER] IV SCH ×10 (18:00)
[2017-05-12] MEDS ORDERED: SODIUM ACETATE IV SCH ×10 (18:00)
[2017-05-12] MEDS ORDERED: TPN PERIPHERAL IV SCH ×10 (18:00)
[2017-05-12] MEDS ORDERED: POTASSIUM CHLORIDE IV SCH ×10 (18:00)
--- NOTE | 2017-05-12 19:00 | NUR ---
Dr. Sullivan here to see the patient, informed regarding the patient converting back and forth from SR to AFIB, and the patient is on Amioderone drip at 16.7ml/hour at this time. Also informed of transfer to [facility] tomorrow 05/13/17. Dr. Sullivan stated that he will start the patient on Amioderone 400mg PO BID in the morning and then once the PO dose is given the Amioderone drip can be stopped, will follow up with new orders and inform the NOC shift nurse.
--- NOTE | 2017-05-12 19:05 | NUR ---
Opening Notes Received patient resting comfortably in bed. Patient does not have any complaints of pain or acute respiratory distress. Uncomfortable at the mid abdomen otherwise no pain. A/O x 4. PICC line on the left upper arm infusing with TPN and Lipids. IV to the right wrist 20 gauge infusing with Amiodarone 16.7. Call light within reach and safety precautions being observed. Will continue to monitor on rounds.
[2017-05-12] MEDS ORDERED: AMIODARONE HCL 900 MG in D5W 482 ML IV SCH (19:15)
--- NOTE | 2017-05-12 20:04 | NUR ---
Closing Note Pt in stable condition, report given to NOC nurse
[2017-05-12] MEDS: CEFEPIME 1 GM in D5W 50 ML IV SCH (21:42)
--- NOTE | 2017-05-12 22:31 | NUR ---
Rounds Patient asleep in bed. No signs or symptoms of pain or acute respiratory distress. Patient would like to get as much rest as possible. Call light within reach and safety precautions are being observed. Will continue to monitor.
[2017-05-13] VITALS: BP 115/72; PULSE 86; RESP 18; TEMP 98.1; O2SAT 97
--- NOTE | 2017-05-13 00:25 | NUR ---
Rounds Patient is asleep in bed. No reports of pain or respiratory distress. Call light within reach. Will continue to monitor.
[2017-05-13] MEDS: INSULIN REGULAR, HUMAN 100 UNITS/ML, 10 ML VIAL (novoLIN R) SUBCUT PRN ×3 (00:56→11:26)
[2017-05-13] MEDS: IPRATROPIUM BROM 0.5 MG/2.5 ML VIAL.NEB (ATROVENT) INH SCH ×4 (00:57→19:52)
[2017-05-13] MEDS: ALBUTEROL SULFATE 0.083% 2.5 MG/3 ML VIAL.NEB INH SCH ×4 (00:57→19:51)
--- NOTE | 2017-05-13 02:08 | NUR ---
Rounds Patient is asleep in bed. No change of condition. Call light within reach, safety precautions being observed.
[2017-05-13 03:32] VITALS: BP 129/67; PULSE 94; RESP 20; TEMP 98.5; O2SAT 98
--- NOTE | 2017-05-13 04:19 | NUR ---
Rounds Patient comfortably sleeping in bed with SCD's on. No change in status. Will follow up on next rounds.
[2017-05-13 06:28] LABS: BASOPHILS % (AUTO) 0.3 % (0.0-2.0); EOSINOPHILS # (AUTO) 0.1 K/uL (0.0-0.4); EOSINOPHILS % (AUTO) 0.5 % (0.0-4.0); HEMATOCRIT 26.9 % (36-48); LYMPHOCYTES # (AUTO) 0.6 K/uL (1.0-5.5); LYMPHOCYTES % (AUTO) 5.7 % (20.5-51.5); MEAN CORPUSCULAR HEMOGLOBIN 31 pg (27-31); MEAN CORPUSCULAR HGB CONC 34 % (32-36); MEAN CORPUSCULAR VOLUME 93 fL (79.0-98.0); MONOCYTES # (AUTO) 0.7 K/uL (0.0-1.0); MONOCYTES % (AUTO) 7.2 % (1.7-9.3); NEUTROPHILS # (AUTO) 8.7 K/uL (1.8-7.7); NEUTROPHILS % (AUTO) 86.3 % (40.0-70.0); PLATELET COUNT (AUTO) 174 K/uL (130-430); RED BLOOD CELL COUNT(AUTO) 2.91 MIL/uL (4.2-6.2); RED CELL DISTRIBUTION WIDTH 13.9 % (9.0-15.0); WHITE BLOOD COUNT (AUTO) 10.1 K/uL (4.8-10.8)
[2017-05-13 06:30] LABS: ALBUMIN 1.5 g/dL (3.4-4.8); CALCIUM 8.2 mg/dL (8.4-11.0); CREATININE 0.94 mg/dL (0.55-1.30); PHOSPHORUS 3.3 mg/dL (2.7-4.5); POTASSIUM 3.7 mmol/L (3.5-5.1); TOTAL BILIRUBIN 0.3 mg/dL (0.0-1.0)
--- NOTE | 2017-05-13 06:57 | NUR ---
Closing Notes Patient comfortably in bed resting. TPN, lipids, and D5 1/2 Normal saline infusing in the left upper arm. Amiodarone infusing in the right wrist. Patient does not have any pain or respiratory distress. No significant changes over night. Call light within reach and safety precautions are being observed. Will endorse to the morning shift.
--- NOTE | 2017-05-13 07:59 | NUR ---
Opening Note Opening Note Pt found resting in bed, no s/s of SOB, no c/o discomfort. Reports having not slept well but "anxiety is better now." IV lines infusing and smith draining to gravity, midline abdominal incision visualized and without draining or bleeding. Bed and safety precautions in place with bed at lowest position, bed alarm on and call light within reach. Pt agrees to call for any assistance.
[2017-05-13 08:05] VITALS: BP 127/65; PULSE 95; RESP 18; TEMP 99; O2SAT 96
[2017-05-13] MEDS: DULoxetine HCL 30 MG CAPSULE.DR (CYMBALTA) PO SCH (08:49)
[2017-05-13] MEDS: ARIPiprazole 2 MG TAB PO SCH (08:49)
[2017-05-13] MEDS: FLUoxetine HCL 10 MG CAPSULE (PROzac) PO SCH (08:49)
[2017-05-13] MEDS: LEVOTHYROXINE SODIUM 0.1 MG VIAL IVP SCH (08:50)
[2017-05-13] MEDS: PANTOPRAZOLE SODIUM 40 MG/VIAL (PROTONIX) IVP SCH (08:50)
[2017-05-13] MEDS: CEFEPIME 1 GM in D5W 50 ML IV SCH (08:51)
[2017-05-13] MEDS: AMIODARONE HCL 200 MG TABLET PO SCH ×2 (08:52→21:39)
[2017-05-13] MEDS: METOPROLOL TARTRATE 25 MG TABLET PO SCH ×2 (08:53→21:38)
--- NOTE | 2017-05-13 10:00 | NUR ---
DC Planning: Updated Nazia Bettencourt @ [facility], ph [phone] that Md will dc iv Amiodarone and put pt. on PO, will monitor pt. x 1hr if stable and cleared by dye box operator for transfer. Addendum: 05/13/17 at 1137 by Brennon Chandra RN >> LM /updated Nazia Eckert that RN called out to dye box operator to get clearance for transfer.
--- NOTE | 2017-05-13 10:15 | NUR ---
Ammnioderone Drip DC Stopped ammioderone drip per order, one hour after administering PO amminoderone at 0900. Will change PICC line dressing as well Addendum: 05/13/17 at 1044 by Katina Sagastume RN PICC line dressing changed with preceptor Namrata Marks RN.
[2017-05-13] MEDS: metroNIDAZOLE 500 mg/NS 100 ML IV SCH (10:17)
--- NOTE | 2017-05-13 11:38 | NUR ---
MD Calls Called Kellen Phelps and Lisa regarding possible approval for pt to be transferred to [facility]. Calls requested per CM.
--- NOTE | 2017-05-13 11:40 | NUR ---
Rounding Note Pt found resting with no s/s of SOB or c/o pain. Blood glucose check and coverage provided. Saftey and fall precautions discussed with patient and she verbalizes understanding of call light system. Bed left in lowest position, bed alarm on and call light within reach
--- NOTE | 2017-05-13 12:24 | NUR ---
Returned Call Dr Gonzalez returned earlier page. Reported to him that CM what's to go ahead with transfer to [facility], that pt PO ammnioderone was given at 0900 followed by DC of IV ammioderone drip at 1015. Pt HR 87 and she is sinus rhythm. He approved transfer today.
--- NOTE | 2017-05-13 12:48 | NUR ---
Paged Dr. Phelps second page, need OK to transfer to contracted hospital.
--- NOTE | 2017-05-13 13:45 | NUR ---
PHYSICAL THERAPY CO-SIGN The Physical Therapy Progress Notes documented by Supervisor [employer] have been reviewed. Reviewed/Co-Signed by: Jennifer Rendon, PT Documentation Done by: Beckie Zamarripa PTA I concur with the documentation of this PREP COOK. Plan: continue PT as per plan of care if she remains in this hospital. Addendum: 05/13/17 at 1423 by Jennifer Rendon PT Amended: Links added.
--- NOTE | 2017-05-13 13:51 | NUR ---
DC Planning: Updated Nazia Eckert that both Historic Clothing And Costume Maker/dr. Sullivan and Surgeon/Dr. Phelps cleared pt. for transfer. Nazia Eckert will arrange for bed assignment at [facility] transportation and expecting the transfer today. Nazia Eckert will call RN/nursing unit when bed available-- Katina stated she will notify pt.'s who is at bed side at time. Katina and CHIQUIS Alarcon made aware. Addendum: 05/13/17 at 1520 by Brennon Chandra RN >> [facility]'s address: [address] [place] [address], [place] [id number]. Please arrange [facility] with a "will call" status, BILL wilkes, auth # [id number] .-- Nazia Eckert will provide phone number to report at time of giving bed assignment. -- Namrata Marks /CHIQUIS Ambriz made aware-- doug Welch made aware and to set up ambulance on will call. Addendum: 05/13/17 at 1546 by Alyce HERNÁNDEZ Called [facility] ambulance placed [facility] ([employer]) transport on will call. Addendum: 05/13/17 at 1651 by Alyce Dorman DP Called [facility] ambulance arranged transport yosvany carroll at 9pm. Patient assigned to room 370-2 RN to report [phone] Ext:[phone]
--- NOTE | 2017-05-13 13:55 | NUR ---
CM Phone call Per CM, Dr. Phelps approved pt transfer to [facility]. Informed , will await more info from CM regarding time for transfer and bed assignment.
[2017-05-13 14:11] VITALS: BP 130/79; PULSE 91; RESP 20; TEMP 98; O2SAT 98
--- NOTE | 2017-05-13 14:13 | NUR ---
Rounding Note Pt resting in bed with no s/s of SOB, no c/o pain or discomfort. Safety and fall precautions in place.
--- NOTE | 2017-05-13 15:34 | NUR ---
CM Call Received call from Alyce Hurtado will set up ambulance on will call. Awaiting call from Nazia Eckert at [facility] for bed assignment.
--- NOTE | 2017-05-13 15:36 | NUR ---
Rounding note Pt resting in bed and easily aroused to voice. Has no s/s of SOB and no c/o pain or discomfort at this time. We are to silvia her when we have a verified bed assignment and black pickler time for transport. Pt reeducated to call light system and reminded of safety and fall precautions in place. Bed left in lowest position, with bed alarm on and call light within reach.
[2017-05-13 16:24] VITALS: BP 125/83; PULSE 55; RESP 20; TEMP 98; O2SAT 99
--- NOTE | 2017-05-13 16:45 | NUR ---
Bed Bragg Used Pt moved to and from bed bragg, had small pasty brown bm, pt cleaned and repositioned.
--- NOTE | 2017-05-13 16:46 | NUR ---
notified of transfer time Called to inform him that transfer picket labor union is scheduled tonight for 9 pm.
--- NOTE | 2017-05-13 16:50 | NUR ---
DC Planning: Per Nazia Eckert, given bed # 370-2 at [facility], RN to report # [phone], Dr Miladys Yanez as accepting md. GOLDY astudillo at 9pm-- CHIQUIS Ambriz made aware.
[2017-05-13] MEDS: FAT EMULSIONS 250 ML IV SCH (17:02)
--- NOTE | 2017-05-13 17:16 | NUR ---
Transfer consent signed pt ALOC x 4 and able to sign consent for transfer, will give to NOC shift nurse with SBAR and packet
[2017-05-13] MEDS ORDERED: SODIUM ACETATE IV SCH ×11 (18:00)
[2017-05-13] MEDS ORDERED: SODIUM CHLORIDE IV SCH ×11 (18:00)
[2017-05-13] MEDS ORDERED: TPN PERIPHERAL IV SCH ×11 (18:00)
[2017-05-13] MEDS ORDERED: [UNRECOGNIZED DRUG - OTHER] IV SCH ×11 (18:00)
--- NOTE | 2017-05-13 18:21 | NUR ---
Transfer Information Pt scheduled for [facility]S transport pickle pumper at 9pm, [facility] [address] [facility] [facility] [address] Room [address] bed 2, Receiving Ginger Yanez MD, Report to be called to [phone] ext [phone]. notified of pickle pumper time, contact info. Jeet Caballeroin [phone].
--- NOTE | 2017-05-13 18:22 | NUR ---
Closing Notes Pt found sitting with dinner but reports still little to no appetite, drinking boost but nothing else taken yet. Pt ALOC x 4, stable vital signs, no s/s of SOB or c/o pain, smith catheter in place and draining to gravity, PICC line patent and infusing, IV in R wrist SL. Pt anticipating transfer pickling drum operator to [facility] at 9pm via [facility] ambulance. notified and anticipating coming to be with her for discharge. Transfer consent signed and in chart. NOC shift nurse to call report to receiving hospital.
--- NOTE | 2017-05-13 20:13 | NUR ---
REPORT Called report to [facility], spoke to CHIQUIS Gaspar. Patient will be going to room 370 bed 2. wire rope fabrication supervisor time from ambulance at 2100. Patient aware of transfer tonight.
--- NOTE | 2017-05-13 21:57 | NUR ---
DISCHARGE PATIENT AWAKE, NO SOB NOTED. DUE MEDICATIONS ADMINISTERED, PATIENT DENIES ANY PAIN AT THIS TIME. IN STABLE CONDITION. REPORT GIVEN TO MEDIC PERSONNEL, TRANSITIONAL PAPERWORK GIVEN. ALL PATIENT BELONGINGS ACCOUNTED FOR. AT BEDSIDE. PATIENT WILL BE LEAVING WITH PICC LINE AND NAVARRO CATHETER.
== END 2017-05-13 22:05 | disposition short-term general hospital (02) | DRG 853 ==
LOC: SED 13:06 → SMU 15:55 → SIC 04-30 16:50 → STU 05-10 19:28
PROVIDERS: ADMIT Internal Medicine Hospice and Palliative Medicine; ATTEND Internal Medicine Hospice and Palliative Medicine
PROC: 0D9670Z Drainage of Stomach with Drainage Device, Via Natural or Artificial Opening (ICD-10-PCS; 2017-04-28)
PROC: 0BH17EZ Insertion of Endotracheal Airway into Trachea, Via Natural or Artificial Opening (ICD-10-PCS; 2017-04-28)
PROC: 5A1955Z Respiratory Ventilation, Greater than 96 Consecutive Hours (ICD-10-PCS; 2017-04-28)
PROC: 0DNA0ZZ Release Jejunum, Open Approach (ICD-10-PCS; 2017-04-30)
PROC: 0DB80ZZ Excision of Small Intestine, Open Approach (ICD-10-PCS; principal; 2017-04-30 14:00)
PROC: 30233N1 Transfusion of Nonautologous Red Blood Cells into Peripheral Vein, Percutaneous Approach (ICD-10-PCS; 2017-05-02)
PROC: 02HV33Z Insertion of Infusion Device into Superior Vena Cava, Percutaneous Approach (ICD-10-PCS; 2017-05-04)
PROC: B548ZZA Ultrasonography of Superior Vena Cava, Guidance (ICD-10-PCS; 2017-05-04)
PROC: 02PYX3Z Removal of Infusion Device from Great Vessel, External Approach (ICD-10-PCS; 2017-05-05)
DX: A41.50 Gram-negative sepsis, unspecified (principal); J69.0 Pneumonitis due to inhalation of food and vomit; J96.00 Acute respiratory failure, unspecified whether with hypoxia or hypercapnia; N17.9 Acute kidney failure, unspecified; K56.5 Intestinal adhesions [bands] with obstruction (postinfection); J15.5 Pneumonia due to Escherichia coli; K65.9 Peritonitis, unspecified; I48.92 Unspecified atrial flutter; J93.82 Other air leak; I47.1 Supraventricular tachycardia; K56.1 Intussusception; I48.91 Unspecified atrial fibrillation; I10 Essential (primary) hypertension; Z96.653 Presence of artificial knee joint, bilateral; K63.89 Other specified diseases of intestine; E03.9 Hypothyroidism, unspecified; E66.9 Obesity, unspecified; F32.9 Major depressive disorder, single episode, unspecified; K44.9 Diaphragmatic hernia without obstruction or gangrene; F41.9 Anxiety disorder, unspecified; M19.90 Unspecified osteoarthritis, unspecified site; R73.9 Hyperglycemia, unspecified; F17.200 Nicotine dependence, unspecified, uncomplicated; Z98.84 Bariatric surgery status; Z68.31 Body mass index [BMI] 31.0-31.9, adult
CPT/HCPCS: 36415; 36600; 71010; 74000-TC; 74220-TC; 74245-TC; 80048; 80053; 80061; 81000-TC; 82570-TC; 82803-TC; 82962; 83690-TC; 83735-TC; 83880; 84100-TC; 84302-TC; 84443-TC; 85007; 85025; 85027; 85610-TC; 85730-TC; 86886; 86900; 86901; 86920; 87040-TC; 87070-TC; 87075-TC; 87081; 87186-TC; 87205-TC; 88307; 93005; 93306; 94002; 94003; 94640; 94760; 96374; 97110-GP; 97116-GP; 97530-GP; 99285; C1751; C9113; J0282; J0610; J0692; J1100; J1160; J1170; J1450; J1650; J1720; J1815; J1885; J1940; J2001; J2060; J2250; J2270; J2405; J2543; J2704; J2930; J3010; J3475; J3480; J3490; J7030; J7040; J7042; J7050; J7060; J7120; J7131; P9021; P9046; Q9963

== ENCOUNTER 2020-11-06 22:37 | Emergency (ER) | payer BC ==
[~2020-11-06] VITALS: Ht 167.6 cm; Wt 72.6 kg
[~2020-11-06 22:37] MED LIST changes: +ARIP2TAB3 PO; -CELE200C PO; -PANT40TA4 PO; +PRO10 PO; -SARAFEM PO
[2020-11-06 22:47] VITALS: BP_SYST 158
--- NOTE | 2020-11-06 22:56 | NUR ---
Pt ambulatory to bed 7 for evaluation
[2020-11-06] MEDS ORDERED: ONDANSETRON 4 MG ODT TAB PO ONE (23:00)
[2020-11-06] MEDS ORDERED: MORPHINE 4 MG/ML INJ. SYRINGE IM ONE (23:00)
--- NOTE | 2020-11-06 23:02 | NUR ---
ER Dr. salgado at bedside examining patient.
--- NOTE | 2020-11-06 23:02 | NUR ---
PT A&O X4 FROM HOME C/O UPPER ABDOMINAL PAIN THAT STARTED AROUND 10PM WITH NAUSEA & VOMITING THAT PERSISTED SINCE EARLIER TODAY. PAIN RADIATES TOWARDS BACK, RATES IT A 05/27. PT HX OF BOWEL OBSTRUCTIONS. PT LAST BOWEL MOVEMENT ON FRIDAY. PT DENIES FEVER, CHILLS, CHEST PAIN, SOB.
--- NOTE | 2020-11-06 23:10 | NUR ---
# 20 gauge angiocath placed to LEFT AC. Use of asceptic technique. Opsite placed over site. Blood return noted. Blood,BLOOD CULTURES, LACTIC for lab drawn from site. Flushed with 10 cc of normal saline. No evidence of infiltration noted. Patient tolerated well.
[2020-11-06] MEDS ORDERED: ONDANSETRON HCL 4 MG/2 ML VIAL IVP ONE (23:15)
[2020-11-06] MEDS ORDERED: MORPHINE 4 MG/ML INJ. SYRINGE IVP ONE (23:15)
[2020-11-06 23:17] LABS: BILIRUBIN,URINE NEGATIVE (NEGATIVE); BLOOD, URINE 1+ (NEGATIVE); CLARITY/URINE CLEAR (CLEAR); COLOR,URINE YELLOW (YELLOW); GLUCOSE,URINE NEGATIVE (NEGATIVE); KETONES,URINE TRACE (NEGATIVE); LEUKOCYTE ESTERASE ,URINE TRACE (NEGATIVE); NITRITE, URINE NEGATIVE (NEGATIVE); PROTEIN URINE NEGATIVE (NEGATIVE); UROBILINOGEN,URINE 0.2 (0.2-1.0)
--- NOTE | 2020-11-06 23:22 | NUR ---
PT MEDICATED PER MD ORDERS. PT TOLERATED WELL.
[2020-11-06 23:27] LABS: BACTERIA,URINE FEW /HPF (None Seen); WBC,URINE 0-3 /HPF (0-3)
[2020-11-06 23:40] LABS: BASOPHILS # (AUTO) 0.1 K/uL (0.0-0.2); BASOPHILS % (AUTO) 0.7 % (0.0-2.0); EOSINOPHILS # (AUTO) 0.2 K/uL (0.0-0.4); EOSINOPHILS % (AUTO) 3.3 % (0.0-4.0); HEMATOCRIT 43.4 % (36-48); HEMOGLOBIN 14.6 g/dL (12.0-16.0); LYMPHOCYTES # (AUTO) 2.1 K/uL (1.0-5.5); LYMPHOCYTES % (AUTO) 28.4 % (20.5-51.5); MEAN CORPUSCULAR HEMOGLOBIN 34 pg (27-31); MEAN CORPUSCULAR HGB CONC 34 % (32-36); MEAN CORPUSCULAR VOLUME 100 fL (79.0-98.0); MONOCYTES # (AUTO) 0.7 K/uL (0.0-1.0); MONOCYTES % (AUTO) 9.1 % (1.7-9.3); NEUTROPHILS # (AUTO) 4.3 K/uL (1.8-7.7); NEUTROPHILS % (AUTO) 58.5 % (40.0-70.0); PLATELET COUNT (AUTO) 192 K/uL (130-430); RED BLOOD CELL COUNT(AUTO) 4.36 MIL/uL (4.2-6.2); RED CELL DISTRIBUTION WIDTH 13.6 % (9.0-15.0); WHITE BLOOD COUNT (AUTO) 7.4 K/uL (4.8-10.8)
[2020-11-06 23:56] LABS: CALCIUM 8.6 mg/dL (8.4-11.0); CREATININE 1.09 mg/dL (0.55-1.30)
--- NOTE | 2020-11-06 23:56 | NUR ---
Patient transported to radiology via WHEELCHAIR, accompanied by
[2020-11-06 23:59] LABS: INR 1.1 (0.8-1.2); PROTHROMBIN TIME 11.7 SECS (9.5-12.5)
[2020-11-07] MEDS ORDERED: fentaNYL CITRATE/PF 100 MCG/2 ML AMP IVP ONE
[2020-11-07] MEDS ORDERED: DIPHENHYDRAMINE INJ 50 MG/ML VIAL IVP ONE
[2020-11-07 00:02] LABS: ALBUMIN 3.6 g/dL (3.4-4.8); TOTAL BILIRUBIN 0.3 mg/dL (0.0-1.0)
--- NOTE | 2020-11-07 00:11 | NUR ---
Returned from radiology, back to [facility].
--- NOTE | 2020-11-07 00:14 | NUR ---
PATIENT REPORTS PAIN DECREASED TO A 6 OUT OF 10 WHILE AT IMAGING. FENTYNAL AND BENADRY NOT GIVEN AT THE MOMENT. MD AWARE. WILL REASSESS.
[2020-11-07 01:28] VITALS: BP_SYST 130
--- NOTE | 2020-11-07 01:28 | NUR ---
Patient given written and verbal discharge instructions and verbalizes understanding. ER MD discussed with patient the results and treatment provided. Patient in stable condition. ID arm band removed. IV catheter removed intact and dressing applied, no active bleeding. NO Rx given. Patient educated on pain management and to follow up with PMD. Pain Scale 2/10. Opportunity for questions provided and answered. Medication side effect fact sheet provided.
[2020-11-07] MEDS ORDERED: ONDA-8 TL (21:50)
== END 2020-11-07 01:28 | disposition home or self-care (01) ==
LOC: SED 22:37
DX: R10.84 Generalized abdominal pain (principal); E07.9 Disorder of thyroid, unspecified; Z79.899 Other long term (current) drug therapy
CPT/HCPCS: 36415; 74176; 76376; 80053; 81000; 82150; 83605; 83615; 83690; 84484; 85025; 85610; 85730; 96374; 96375; 99284; J2270; J2405; J3010; J1200

== ENCOUNTER 2020-11-07 15:52 | Emergency (ER) | payer BC ==
[~2020-11-07] VITALS: Ht 167.6 cm; Wt 72.6 kg
[2020-11-07 15:59] VITALS: BP_SYST 122
--- NOTE | 2020-11-07 16:05 | NUR ---
Patient left without being seen.
[2020-11-07] MEDS ORDERED: ONDA-8 TL (21:50)
== END 2020-11-07 16:05 | disposition left against medical advice (07) ==
LOC: SED 15:52
DX: R10.9 Unspecified abdominal pain (principal); Z53.21 Procedure and treatment not carried out due to patient leaving prior to being seen by health care provider

== ENCOUNTER 2020-11-07 19:01 | Emergency (ER) | payer BC, SELFPAY ==
[~2020-11-07] VITALS: Ht 167.6 cm; Wt 72.6 kg
[2020-11-07 19:14] VITALS: BP_SYST 150
--- NOTE | 2020-11-07 19:27 | NUR ---
Patient to ER bed 03 to gown for evaluation. Side rails up. Report given to CHIQUIS LEGGETT
[2020-11-07] MEDS ORDERED: ONDANSETRON 4 MG ODT TAB PO ONE (19:30)
--- NOTE | 2020-11-07 19:45 | NUR ---
Dr. Yanez bedside for pt eval
[2020-11-07 19:54] LABS: BASOPHILS # (AUTO) 0.1 K/uL (0.0-0.2); BASOPHILS % (AUTO) 0.9 % (0.0-2.0); EOSINOPHILS # (AUTO) 0.3 K/uL (0.0-0.4); EOSINOPHILS % (AUTO) 3.4 % (0.0-4.0); HEMATOCRIT 43.9 % (36-48); HEMOGLOBIN 14.7 g/dL (12.0-16.0); LYMPHOCYTES # (AUTO) 2.8 K/uL (1.0-5.5); LYMPHOCYTES % (AUTO) 30.6 % (20.5-51.5); MEAN CORPUSCULAR HEMOGLOBIN 33 pg (27-31); MEAN CORPUSCULAR HGB CONC 33 % (32-36); MEAN CORPUSCULAR VOLUME 100 fL (79.0-98.0); MONOCYTES # (AUTO) 0.8 K/uL (0.0-1.0); MONOCYTES % (AUTO) 8.9 % (1.7-9.3); NEUTROPHILS # (AUTO) 5.2 K/uL (1.8-7.7); NEUTROPHILS % (AUTO) 56.2 % (40.0-70.0); PLATELET COUNT (AUTO) 226 K/uL (130-430); RED BLOOD CELL COUNT(AUTO) 4.42 MIL/uL (4.2-6.2); RED CELL DISTRIBUTION WIDTH 13.6 % (9.0-15.0); WHITE BLOOD COUNT (AUTO) 9.3 K/uL (4.8-10.8)
--- NOTE | 2020-11-07 20:00 | NUR ---
Pt BIB family to ED C/O persistent epigastric abdominal pain, associated with multiple episode of NBNB emesis. She was evaluated yesterday by me, during which she reported to have a history of gastric bypass surgery, along with 3 surgeries for bowel obstruction. During her visit yesterday, she had complained of epigastric abdominal pain. Her work-up was negative, including CT abdomen/pelvis and labs. She was subsequently discharged. Upon my evaluation today, she noted that when she returned home yesterday, she began vomiting. Today, she experienced the same epigastric pain, but notes that is is slightly less than her pain yesterday. She however does endorse multiple episodes of vomiting today, prompting ED arrival
[2020-11-07 20:01] LABS: ANION GAP 12 (5-15); CALCIUM 9.3 mg/dL (8.4-11.0); CHLORIDE 103 mmol/L (98-107); CREATININE 1.28 mg/dL (0.55-1.30); GLUCOSE 137 mg/dL (70-99); POTASSIUM 4.9 mmol/L (3.5-5.1); SODIUM SERUM 140 mmol/L (136-145); UREA NITROGEN, BLOOD 25 mg/dL (8-21)
[2020-11-07 20:03] LABS: GFR AFRICAN AMERICAN 53 mL/min (>90)
[2020-11-07 20:07] LABS: ALANINE AMINOTRANSFERASE 18 U/L (12-78); ALBUMIN 3.8 g/dL (3.4-4.8); AMYLASE 44 U/L (0-100); ASPARTATE AMINOTRANSFERASE 14 U/L (10-37); LACTATE DEHYDROGENASE 178 U/L (81-234); LIPASE 214 U/L (73-393); TOTAL BILIRUBIN 0.4 mg/dL (0.0-1.0)
[2020-11-07] MEDS ORDERED: METOCLOPRAMIDE HCL 10 MG/2 ML VIAL IVP ONE (20:15)
[2020-11-07] MEDS ORDERED: DIPHENHYDRAMINE INJ 50 MG/ML VIAL IVP ONE (20:15)
[2020-11-07 20:19] LABS: C-REACTIVE PROTEIN QUANT < 0.2 mg/dL (0-0.5)
--- NOTE | 2020-11-07 20:50 | NUR ---
Pt taken to CT Scan in stable condition
--- NOTE | 2020-11-07 21:00 | NUR ---
Update pt family "Jeet" while he waits in parking lot area
--- NOTE | 2020-11-07 21:04 | NUR ---
Pt back from Radiology well tolerated
[2020-11-07] MEDS ORDERED: ONDA-8 TL (21:50)
[2020-11-07 22:40] VITALS: BP_SYST 148
--- NOTE | 2020-11-07 22:40 | NUR ---
Patient given written and verbal discharge instructions and verbalizes understanding. ER MD discussed with patient the results and treatment provided. Patient in stable condition. ID arm band removed. IV catheter removed intact and dressing applied, no active bleeding. Patient educated on pain management and to follow up with PMD. Pain Scale 0/10 Opportunity for questions provided and answered.
== END 2020-11-07 22:40 | disposition home or self-care (01) ==
LOC: SED 19:01
DX: R10.13 Epigastric pain (principal); E07.9 Disorder of thyroid, unspecified; Z79.899 Other long term (current) drug therapy
CPT/HCPCS: 36415; 74176; 76376; 80053; 82150; 83605; 83615; 83690; 84484; 85025; 86140; 96374; 96375; 99284; J1200; J2765; Q0162

== ENCOUNTER 2021-03-02 10:54 | Emergency (ER) | payer BC, SELFPAY ==
[~2021-03-02] VITALS: Ht 167.6 cm; Wt 74.8 kg
[~2021-03-02 10:54] MED LIST changes: +ONDA-8 TL
--- NOTE | 2021-03-02 10:55 | NUR ---
EKG DONE, RESULTS TO DR. OVIEDO.
--- NOTE | 2021-03-02 10:55 | NUR ---
PT TO BED 1 FOR EVALUATION. PT GOWNED AND ATTACHED TO STEAM TANK OPERATOR.
--- NOTE | 2021-03-02 10:55 | NUR ---
Pt came into ER with complaint of loss of memory this morning. Pt AAOX4 speaking full sentences, ambulatory, able to follow commands, and denies pain. NIH is 0. Finger stick blood glucose is 84. Pt resting in rney VSS no distress noted. Pt reports a small lapse of memory this moring which made her anxious and came straight to the ER. is at bedside.
--- NOTE | 2021-03-02 10:56 | NUR ---
DR. OVIEDO AT BEDSIDE TO ASSESS.
[2021-03-02 10:59] VITALS: BP_SYST 156
--- NOTE | 2021-03-02 11:13 | NUR ---
PT TO CT SCAN VIA WHEELCHAIR.
--- NOTE | 2021-03-02 11:19 | NUR ---
PT BACK FROM CT SCAN. ATTACHED TO FORMULA WEIGHER.
[2021-03-02 11:22] LABS: BASOPHILS # (AUTO) 0.1 K/uL (0.0-0.2); BASOPHILS % (AUTO) 0.8 % (0.0-2.0); EOSINOPHILS # (AUTO) 0.1 K/uL (0.0-0.4); HEMATOCRIT 40.6 % (36-48); HEMOGLOBIN 13.5 g/dL (12.0-16.0); LYMPHOCYTES # (AUTO) 1.3 K/uL (1.0-5.5); LYMPHOCYTES % (AUTO) 20.6 % (20.5-51.5); MEAN CORPUSCULAR HEMOGLOBIN 33 pg (27-31); MEAN CORPUSCULAR HGB CONC 33 % (32-36); MEAN CORPUSCULAR VOLUME 100 fL (79.0-98.0); MONOCYTES # (AUTO) 0.7 K/uL (0.0-1.0); MONOCYTES % (AUTO) 10.5 % (1.7-9.3); NEUTROPHILS # (AUTO) 4.2 K/uL (1.8-7.7); NEUTROPHILS % (AUTO) 66.1 % (40.0-70.0); PLATELET COUNT (AUTO) 172 K/uL (130-430); RED BLOOD CELL COUNT(AUTO) 4.07 MIL/uL (4.2-6.2); RED CELL DISTRIBUTION WIDTH 13.8 % (9.0-15.0); WHITE BLOOD COUNT (AUTO) 6.3 K/uL (4.8-10.8)
[2021-03-02 11:35] LABS: CALCIUM 8.5 mg/dL (8.4-11.0); CREATININE 0.86 mg/dL (0.55-1.30); POTASSIUM 4.2 mmol/L (3.5-5.1)
[2021-03-02 11:40] LABS: ALBUMIN 3.4 g/dL (3.4-4.8); TOTAL BILIRUBIN 0.3 mg/dL (0.0-1.0)
--- NOTE | 2021-03-02 11:40 | NUR ---
PORTABLE XRAY DONE AT BEDSIDE.
[2021-03-02 11:43] LABS: INR 0.9 (0.8-1.2); PROTHROMBIN TIME 9.6 SECS (9.5-12.5)
[2021-03-02] MEDS ORDERED: IOHEXOL 350 mgI/mL, 150 ML INFUS..BTL IV ONE (11:52)
--- NOTE | 2021-03-02 11:55 | NUR ---
Patient transported to radiology via wheelchair, accompanied by tech.
--- NOTE | 2021-03-02 12:08 | NUR ---
Pt back from CT reattached to monitor. Resting in [facility] no dsitress noted.
--- NOTE | 2021-03-02 12:16 | NUR ---
Covid swab collected and sent to lab.
[2021-03-02] MEDS ORDERED: DULO60CA41 PO (12:21)
[2021-03-02] MEDS ORDERED: RIVA10TA PO (12:22)
--- NOTE | 2021-03-02 12:23 | NUR ---
Medication reconciliation completed with information provided by Alvaro SIM. Any prior medication reconciliation on file was reviewed and corrected. Personal Belongings reviwed and updated in chart with pt.
--- NOTE | 2021-03-02 13:13 | NUR ---
Lab at bedside.
--- NOTE | 2021-03-02 14:30 | NUR ---
Pt resting in gurney eating lunch. Attached to monitor. No distress noted. at bedside.
--- NOTE | 2021-03-02 16:28 | NUR ---
Called [facility] and gave report to Светлана SIM.
[2021-03-02 16:53] VITALS: BP_SYST 105
--- NOTE | 2021-03-02 16:54 | NUR ---
Patient to be transferred to [facility]. Is being transferred due to higher level of care. Receiving facility has accepting physician and available space. ER physician has signed transfer form. Patient or responsible alliance party has agreed to transfer and signed form. Patient belongings inventoried and will be sent with patient. Copy of nursing notes, lab reports, EKG, Physicians Orders and X-rays to be sent with patient. Report called to Светлана SIM at receiving facility. Receiving physician is Dr. Márquez. [facility] has been called for transfer. ETA is Now.
== END 2021-03-02 16:54 | disposition short-term general hospital (02) ==
LOC: SED 10:54
DX: G45.9 Transient cerebral ischemic attack, unspecified (principal); I48.91 Unspecified atrial fibrillation; Z79.899 Other long term (current) drug therapy; Z20.822 Contact with and (suspected) exposure to COVID-19
CPT/HCPCS: 36415; 70450; 70496; 70498; 71045; 76376; 80053; 83605; 83880; 84484; 85025; 85610; 85730; 87426; 93005; 99285; Q9967

== ENCOUNTER 2022-09-14 11:54 | Emergency (ER) | payer BC ==
[~2022-09-14] VITALS: Ht 167.6 cm; Wt 81.6 kg
[~2022-09-14 11:54] MED LIST changes: -ARIP2TAB3 PO; -DULO60CA41 PO; +DULO60CA42 PO; -METO25TA6 PO; -ONDA-8 TL; -PRO10 PO; +RIVA10TA PO
[2022-09-14 12:00] VITALS: BP_SYST 140
[2022-09-14] MEDS ORDERED: KETOROLAC TROMETHAMINE 60 MG/2 ML VIAL IM ONE (12:45)
[2022-09-14] MEDS ORDERED: NIRM1TAB PO (12:45)
[2022-09-14] MEDS ORDERED: PRED20TA PO (12:45)
--- NOTE | 2022-09-14 12:45 | NUR ---
ER at bedside examining patient.
--- NOTE | 2022-09-14 12:55 | NUR ---
Pt brought in by self from home Chief complaint migrainal headache related to covid diagnosis.Pt complains of tightness in chest and with Covid diagnosis last 4 days. Pt VSS. NAD.
--- NOTE | 2022-09-14 13:02 | NUR ---
Patient given written and verbal discharge instructions and verbalizes understanding. ER MD discussed with patient the results and treatment provided. Patient in stable condition. ID arm band removed. Rx of Paxlovid and Prednisone given. Patient educated on Covid and to follow up with PMD. Opportunity for questions provided and answered. Medication side effect fact sheet provided.
[2022-09-14 13:08] VITALS: BP_SYST 138
== END 2022-09-14 13:02 | disposition home or self-care (01) ==
LOC: SED 11:54
DX: U07.1 COVID-19 (principal); R05.9 Cough, unspecified; R11.2 Nausea with vomiting, unspecified; R51.9 Headache, unspecified; Z79.899 Other long term (current) drug therapy
CPT/HCPCS: 99283; 96372; J1885

== ENCOUNTER 2022-09-30 11:57 | Emergency (ER) | payer BC ==
[~2022-09-30] VITALS: Ht 167.6 cm; Wt 81.6 kg
[~2022-09-30 11:57] MED LIST changes: +NIRM1TAB PO; +PRED20TA PO
[2022-09-30 12:11] VITALS: BP_SYST 101
[2022-09-30 12:53] LABS: BASOPHILS # (AUTO) 0.1 K/uL (0.0-0.2); BASOPHILS % (AUTO) 0.9 % (0.0-2.0); EOSINOPHILS # (AUTO) 0.2 K/uL (0.0-0.4); EOSINOPHILS % (AUTO) 3.7 % (0.0-4.0); HEMATOCRIT 38.6 % (36-48); HEMOGLOBIN 12.6 g/dL (12.0-16.0); LYMPHOCYTES # (AUTO) 1.1 K/uL (1.0-5.5); LYMPHOCYTES % (AUTO) 18.3 % (20.5-51.5); MEAN CORPUSCULAR HEMOGLOBIN 33 pg (27-31); MEAN CORPUSCULAR HGB CONC 33 % (32-36); MEAN CORPUSCULAR VOLUME 102 fL (79.0-98.0); MONOCYTES # (AUTO) 0.4 K/uL (0.0-1.0); MONOCYTES % (AUTO) 7.6 % (1.7-9.3); NEUTROPHILS % (AUTO) 69.5 % (40.0-70.0); PLATELET COUNT (AUTO) 143 K/uL (130-430); RED BLOOD CELL COUNT(AUTO) 3.78 MIL/uL (4.2-6.2); WHITE BLOOD COUNT (AUTO) 5.8 K/uL (4.8-10.8)
[2022-09-30 13:06] LABS: ANION GAP 7 (5-15); CALCIUM 8.7 mg/dL (8.4-11.0); CHLORIDE 108 mmol/L (98-107); CREATININE 0.84 mg/dL (0.55-1.30); GLUCOSE 107 mg/dL (70-99); UREA NITROGEN, BLOOD 27 mg/dL (8-21)
[2022-09-30 13:18] LABS: ALANINE AMINOTRANSFERASE 24 U/L (12-78); ALBUMIN 3.2 g/dL (3.4-4.8); ASPARTATE AMINOTRANSFERASE 14 U/L (10-37); TOTAL BILIRUBIN 0.3 mg/dL (0.0-1.0)
[2022-09-30] MEDS ORDERED: ALBMDI INH (16:49)
--- NOTE | 2022-09-30 17:09 | NUR ---
Patient given written and verbal discharge instructions and verbalizes understanding. ER MD discussed with patient the results and treatment provided. Patient in stable condition. ID arm band removed. IV catheter removed intact and dressing applied, no active bleeding. Rx of albuterol given. Patient educated on pain management and to follow up with PMD. Pain Scale 0 Opportunity for questions provided and answered. Medication side effect fact sheet provided.
== END 2022-09-30 17:09 | disposition home or self-care (01) ==
LOC: SED 11:57
DX: J20.9 Acute bronchitis, unspecified (principal); R05.9 Cough, unspecified; R06.02 Shortness of breath; Z79.899 Other long term (current) drug therapy; Z20.822 Contact with and (suspected) exposure to COVID-19
CPT/HCPCS: 36415; 71045; 80053; 83880; 84484; 85025; 99284

== ENCOUNTER 2022-10-21 11:15 | Emergency (ER) | payer BC ==
[~2022-10-21] VITALS: Ht 167.6 cm; Wt 79.4 kg
[~2022-10-21 11:15] MED LIST changes: +ALBMDI INH
[2022-10-21 11:29] VITALS: BP_SYST 157
--- NOTE | 2022-10-21 11:30 | NUR ---
Placed in room 05 . Placed on monitoring coordinator, blood pressure machine and pulse oximeter. To gown for exam. Side rails up. Report given to CHIQUIS HULL.
--- NOTE | 2022-10-21 11:35 | NUR ---
ER DR. FARRIS EXAMINING PT
[2022-10-21] MEDS ORDERED: MORPHINE 4 MG INJ. 4 MG/ML VIAL IVP ONE (11:45)
[2022-10-21] MEDS ORDERED: NACL 0.9% 1,000 ML IV ONE (11:45)
--- NOTE | 2022-10-21 11:45 | NUR ---
PT RECEIVED, CARE ASSUMED. PT PRESENTS SELF WITH SOB AND UPPER, MID ABDO PAIN. PT IS ANXIOUS. DR RG AT BED SIDE. WILL CONTINUE TO MONITOR
--- NOTE | 2022-10-21 12:00 | NUR ---
INSERTED 20 G IV TO RIGHT AC.
[2022-10-21 12:02] LABS: BASOPHILS % (AUTO) 0.6 % (0.0-2.0); EOSINOPHILS # (AUTO) 0.1 K/uL (0.0-0.4); EOSINOPHILS % (AUTO) 1.2 % (0.0-4.0); HEMATOCRIT 41.4 % (36-48); HEMOGLOBIN 13.8 g/dL (12.0-16.0); LYMPHOCYTES # (AUTO) 0.6 K/uL (1.0-5.5); LYMPHOCYTES % (AUTO) 10.3 % (20.5-51.5); MEAN CORPUSCULAR HEMOGLOBIN 34 pg (27-31); MEAN CORPUSCULAR HGB CONC 33 % (32-36); MEAN CORPUSCULAR VOLUME 101 fL (79.0-98.0); MONOCYTES # (AUTO) 1.1 K/uL (0.0-1.0); MONOCYTES % (AUTO) 18.5 % (1.7-9.3); NEUTROPHILS # (AUTO) 4.1 K/uL (1.8-7.7); NEUTROPHILS % (AUTO) 69.4 % (40.0-70.0); PLATELET COUNT (AUTO) 173 K/uL (130-430); RED BLOOD CELL COUNT(AUTO) 4.12 MIL/uL (4.2-6.2); RED CELL DISTRIBUTION WIDTH 14.2 % (9.0-15.0)
[2022-10-21 12:13] LABS: ANION GAP 12 (5-15); CHLORIDE 101 mmol/L (98-107); CREATININE 0.98 mg/dL (0.55-1.30); GLUCOSE 159 mg/dL (70-99); UREA NITROGEN, BLOOD 19 mg/dL (8-21)
[2022-10-21 12:18] LABS: ALANINE AMINOTRANSFERASE 16 U/L (12-78); ALBUMIN 3.2 g/dL (3.4-4.8); ASPARTATE AMINOTRANSFERASE 8 U/L (10-37); TOTAL BILIRUBIN 0.6 mg/dL (0.0-1.0)
--- NOTE | 2022-10-21 14:00 | NUR ---
PT SITTING UP IN BED. PT STATES SHE FEELS BETTER. COLLECTED URINE SAMPLE. WILL CONTINUE TO MONITOR
[2022-10-21 14:50] VITALS: BP_SYST 142
== END 2022-10-21 14:50 | disposition home or self-care (01) ==
LOC: SED 11:15
DX: R11.0 Nausea (principal); Z79.899 Other long term (current) drug therapy
CPT/HCPCS: 99285; 74176; 96374; 96361; 80053; 85025; 87040; 36415; 76376; 83605; J2270; J7030